=== PATIENT | female | born 1950 | race Caucasian/White ===

== ENCOUNTER 2019-10-06 09:05 | Outpatient (CLI) | payer MEDICARE, SELFPAY ==
--- NOTE | ~2019-10-06 | MM_ITS ---
EXAMINATION: MM screening arash BI w bita HISTORY: Screening TECHNIQUE: Craniocaudal and mediolateral oblique 3-D tomosynthesis images were obtained and synthetic 2-D images were generated. CAD analysis was submitted and interpreted. COMPARISON: Comparison to multiple prior studies sequentially, with oldest reviewed study dated 09/12. BREAST PARENCHYMAL COMPOSITION: There are scattered areas of fibroglandular density. FINDINGS: Stable benign-appearing bilateral breast masses. There is no evidence of suspicious mass, c alcification, or architectural distortion to suggest malignancy in either breast. There has been no s uspicious interval change. IMPRESSION: 1. No mammographic evidence of malignancy. 2. Recommend routine screening mammography in one year. BI-RADS Category 2: Benign finding(s). Reviewed, dictated and finalized at location A.
== END 2019-10-06 09:06 | disposition home or self-care (01) ==
PROVIDERS: PCP Family Medicine; Visit Provider Obstetrics & Gynecology
DX: Z12.31 Encounter for screening mammogram for malignant neoplasm of breast (principal)
CPT/HCPCS: 77063; 77067

== ENCOUNTER 2019-11-22 00:43 | Outpatient (CLI) | payer MEDICARE, SELFPAY ==
[2019-11-22 17:48] LABS: SARS-CoV-2 RNA PCR Negative
== END 2019-11-22 00:44 | disposition home or self-care (01) ==
LOC: ANHCOVIDDT 00:43
PROVIDERS: PCP Family Medicine; Visit Provider Internal Medicine Gastroenterology
DX: Z01.812 Encounter for preprocedural laboratory examination (principal); Z20.828 Contact with and (suspected) exposure to other viral communicable diseases
CPT/HCPCS: 87635; C9803; U0003

== ENCOUNTER 2019-11-25 02:08 | Day surgery (SDC) | payer MEDICARE, SELFPAY ==
[2019-11-19 13:15] VITALS: BMI 18.1
[2019-11-25 08:56] VITALS: BP 138/73; PULSE 72; RESP 18; TEMP 36.2; O2SAT 100; BMI 25.4
[2019-11-25] MEDS: LACTATED RINGERS 1,000 ML 150 ML IV CONT (09:00)
--- NOTE | 2019-11-25 09:01 | WPDANESEPPF ---
Anes - Initial Pre Proc Eval Procedure: Operation Date: 11/25/19 09:30 Proposed Procedures p Screening Colonoscopy - Fab Celis MD Date/Time: 11/25/19 09:01 Surgeon: Fab Celis MD Pre Op Diagnosis: neoplasm screening Patient Data Age: 68 Gender: F Height: 5 ft 3 in Weight: 65.2 kg Last Vital Signs Temp 97.2 F L 11/25/19 08:56 Pulse 72 11/25/19 08:56 Resp 18 11/25/19 08:56 BP 138/73 11/25/19 08:56 Pulse Ox 100 11/25/19 08:56 Allergies Allergy/AdvReac Type Severity Reaction Status Date / Time erythromycin base Allergy Unknown Unknown Verified 11/25/19 08:53 ERYTHROMYCIN (Generic Allergy Unknown Unknown Uncoded 11/25/19 08:53 Allergy) INDOMETHACIN (Generic Allergy Unknown Unknown Uncoded 11/25/19 08:53 Allergy) MACROLIDES Allergy Unknown Unknown Uncoded 11/25/19 08:53 SALICYLATES Allergy Unknown Unknown Uncoded 11/25/19 08:53 Home Medications Medication Instructions Recorded Confirmed Type cephalexin 500 mg capsule 500 mg PO Q8H PRN 04/10/19 10/27/19 History cholecalciferol (vitamin D3) 25 25 mcg PO DAILY 04/10/19 10/27/19 History mcg (1,000 unit) capsule clobetasol 0.05 % topical cream 1 applic TOPICAL QAM AND QPM 04/10/19 10/27/19 History clotrimazole-betamethasone 1 1 applic TOPICAL BID #15 gm 04/10/19 10/27/19 Rx %-0.05 % topical cream esterified 1 tablet PO DAILY 04/10/19 10/27/19 History estrogens-methyltestosterone 0.625 mg-1.25 mg tablet fluticasone propionate 0.05 % 1 applic TOPICAL BID 04/10/19 10/27/19 History topical cream folic acid 1 mg tablet 1 mg PO DAILY 04/10/19 10/27/19 History levothyroxine 75 mcg tablet 75 mcg PO DAILY 04/10/19 10/27/19 History multivitamin, stress formula 1 tablet PO DAILY 04/10/19 10/27/19 History naproxen 500 mg tablet 500 mg PO BID PRN 04/10/19 10/27/19 History nystatin 100,000 unit/gram topical 1 applic TOPICAL BID #30 gm 04/10/19 10/27/19 Rx cream prednisone 5 mg tablet 5 mg PO DAILY 04/10/19 10/27/19 History triamcinolone acetonide 55 mcg 1 spray NASAL DAILY 04/10/19 10/27/19 History nasal spray aerosol hydrocortisone acetate 25 mg 25 mg RECTAL BID #12 each 08/06/19 10/27/19 Rx rectal suppository alprazolam 0.5 mg tablet 0.5 mg PO DAILY tablet 10/27/19 10/27/19 History infliximab 100 mg intravenous 197 mg IVPB ONCE #1 each 10/27/19 10/27/19 Rx solution methotrexate sodium 2.5 mg tablet 7.5 mg PO WEEKLY tablet 10/27/19 10/27/19 History peg 3350-electrolytes 236 240 ml PO Q10M #4000 ml 11/17/19 Rx gram-22.74 gram-6.74 gram-5.86 gram solution omega 2-frk-bwk-fish oil [Fish Oil] 1 cap PO DAILY 11/19/19 11/19/19 History Patient hx anesthesia problems: none Family hx anesthesia problems: none PMFSH Social History Social History Years smoked: 20 Smoking status: Former smoker Second hand tobacco smoke exposure: No Smoking end date: 02/27/92 Alcohol intake: current Substance use: never Substance use type: does not use Living arrangements: with family Gender identity (if verbalized by the patient): Female Spiritual care concerns: No Anes - Eval Final PreProcedure Day of Procedure 11/25/19 09:01 Patient weight: normal Heart: regular rate and rhythm Lungs: clear to auscultation Airway: Mallampati scale class II Neurological: alert and oriented Last oral intake: >/= 8 hours ASA classification: II Emergent: no Anesthetic plan: proceed Anesthesia type and monitoring: general GIVS and standard monitoring Informed Consent: The patient's anesthetic plan and its attendant risks and benefits were discussed with the patient/family/POA. Questions were solicited and answers provided to the satisfaction of the patient/family/POA.
--- NOTE | 2019-11-25 09:35 | PM.HPGS ---
History of Present Illness History of Present Illness Consent: Risks, benefits, and alternatives have been discussed and questions answered. Patient agrees to proceed with procedure. Chief complaint: neoplasm screening Narrative: Marilyn Bueno is a 68 year old female here for screening colonoscopy. also history of hemorrhoids Review of Systems Constitutional: Constitutional: Denies headache(s) and Denies weakness Eyes: Eyes: Denies blurry vision ENT: Reports Normal hearing present, Denies headache(s) and Denies neck pain Cardiovascular: Cardiovascular: Denies chest pain and Denies dyspnea Respiratory: Respiratory: Denies dyspnea Gastrointestinal: Gastrointestinal: Reports no additional gastrointestinal complaints Genitourinary: Genitourinary: Denies dysuria Musculoskeletal: Musculoskeletal: Denies neck pain Integumentary/Breasts: Skin/Breast: Denies dry skin Neurologic: Reports Normal hearing present, Denies headache(s) and Denies weakness Psychiatric: Psychiatric: Denies anxiety Endocrine: Endocrine: Denies change in body appearance Hematologic/Lymphatic: Hematologic/Lymphatic: Denies easy bleeding Allergic/Immunologic: Allergic/Immunologic: Denies urticaria PMFSH Social History Social History Years smoked: 20 Smoking status: Former smoker Second hand tobacco smoke exposure: No Smoking end date: 02/27/92 Alcohol intake: current Substance use: never Substance use type: does not use Living arrangements: with family Gender identity (if verbalized by the patient): Female Spiritual care concerns: No Meds Home Medications and Allergies Home Medications Medication Instructions Recorded Confirmed Type cephalexin 500 mg capsule 500 mg PO Q8H PRN 04/10/19 10/27/19 History cholecalciferol (vitamin D3) 25 25 mcg PO DAILY 04/10/19 10/27/19 History mcg (1,000 unit) capsule clobetasol 0.05 % topical cream 1 applic TOPICAL QAM AND QPM 04/10/19 10/27/19 History clotrimazole-betamethasone 1 1 applic TOPICAL BID #15 gm 04/10/19 10/27/19 Rx %-0.05 % topical cream esterified 1 tablet PO DAILY 04/10/19 10/27/19 History estrogens-methyltestosterone 0.625 mg-1.25 mg tablet fluticasone propionate 0.05 % 1 applic TOPICAL BID 04/10/19 10/27/19 History topical cream folic acid 1 mg tablet 1 mg PO DAILY 04/10/19 10/27/19 History levothyroxine 75 mcg tablet 75 mcg PO DAILY 04/10/19 10/27/19 History multivitamin, stress formula 1 tablet PO DAILY 04/10/19 10/27/19 History naproxen 500 mg tablet 500 mg PO BID PRN 04/10/19 10/27/19 History nystatin 100,000 unit/gram topical 1 applic TOPICAL BID #30 gm 04/10/19 10/27/19 Rx cream prednisone 5 mg tablet 5 mg PO DAILY 04/10/19 10/27/19 History triamcinolone acetonide 55 mcg 1 spray NASAL DAILY 04/10/19 10/27/19 History nasal spray aerosol hydrocortisone acetate 25 mg 25 mg RECTAL BID #12 each 08/06/19 10/27/19 Rx rectal suppository alprazolam 0.5 mg tablet 0.5 mg PO DAILY tablet 10/27/19 10/27/19 History infliximab 100 mg intravenous 197 mg IVPB ONCE #1 each 10/27/19 10/27/19 Rx solution methotrexate sodium 2.5 mg tablet 7.5 mg PO WEEKLY tablet 10/27/19 10/27/19 History peg 3350-electrolytes 236 240 ml PO Q10M #4000 ml 11/17/19 Rx gram-22.74 gram-6.74 gram-5.86 gram solution omega 6-thq-ipd-fish oil [Fish Oil] 1 cap PO DAILY 11/19/19 11/19/19 History Allergies Allergy/AdvReac Type Severity Reaction Status Date / Time erythromycin base Allergy Unknown Unknown Verified 11/25/19 08:53 ERYTHROMYCIN (Generic Allergy Unknown Unknown Uncoded 11/25/19 08:53 Allergy) INDOMETHACIN (Generic Allergy Unknown Unknown Uncoded 11/25/19 08:53 Allergy) MACROLIDES Allergy Unknown Unknown Uncoded 11/25/19 08:53 SALICYLATES Allergy Unknown Unknown Uncoded 11/25/19 08:53 Vital Signs Vital Signs - 24 hr 11/25/19 08:56 Temperature 97.2 F L Pulse Rate 72 Respirat
[2019-11-25 09:58] VITALS: BP 102/56; PULSE 64; RESP 20; O2SAT 96
[2019-11-25 10:08] VITALS: BP 103/57; PULSE 66; RESP 20; O2SAT 96
[2019-11-25 10:15] VITALS: BP 122/69; PULSE 61; RESP 20; O2SAT 96
== END 2019-11-25 10:55 | disposition home or self-care (01) ==
PROVIDERS: PCP Family Medicine; Visit Provider Internal Medicine Gastroenterology
PROC: 0DJD8ZZ Inspection of Lower Intestinal Tract, Via Natural or Artificial Opening Endoscopic (ICD-10-PCS; CPT 45378; principal; 2019-11-25 09:30)
DX: Z12.11 Encounter for screening for malignant neoplasm of colon (principal); Z87.891 Personal history of nicotine dependence; K64.8 Other hemorrhoids
CPT/HCPCS: G0121; J2704; J7120

== ENCOUNTER 2019-12-29 09:48 | Outpatient (CLI) | payer MEDICARE, SELFPAY ==
--- NOTE | ~2019-12-29 | XR_ITS ---
EXAMINATION: XR chest 2V EXAM DATE: 12/29/2019 10:24 INDICATION: Upper abdominal pain. TECHNIQUE: Frontal and lateral projections of the chest obtained and reviewed. There is no prior willem dy for comparison. FINDINGS: The lungs are clear. There are no pleural effusions. The cardiomediastinal silhouette is within normal limits. There is no pneumothorax suspected. There is old right 7th rib fracture. Mode rate-sized mid thoracic bridging endplate osteophytes. IMPRESSION: No acute cardiopulmonary findings. Reviewed, dictated and finalized at location B. UCT PICKER
--- NOTE | ~2019-12-29 | CT_ITS ---
EXAMINATION: CT abdomen wo con EXAM DATE: 12/29/2019 10:22 INDICATION: Left flank pain TECHNIQUE: Spiral CT of the abdomen was performed without contrast. Axial, coronal and sagittal ramona ges were reviewed. The dose-length product (DLP) for this examination was 197.33 mGy-cm. The exposu re was tailored according to patient size (auto mA exposure control), and iterative reconstruction (A SIR) was used as additional dose reduction technique. There is no prior study for comparison. FINDINGS: There is a strip of hypodensity extending through the spleen without volume loss or masslik e appearance. This could be an acute splenic infarction, consider this as possibility for patient's l eft flank pain. This is new compared to a CT scan from 2015. There is no overlying rib fracture or kaplan bcapsular hematoma. Gallbladder is unremarkable. No biliary obstruction. There is no nephrolithiasi s or hydronephrosis. There is no retroperitoneal lymphadenopathy. Small umbilical fat-containing hernia. The stomach and small bowel are unremarkable. There is expected amount of colonic stool. No free i ntraperitoneal gas. The heart is normal in size. There are no pericardial or pleural effusions. T he lung bases are unremarkable. There are no osteoblastic or osteolytic lesions identified. IMPRESSION: 1. Small geographically shaped splenic hypodensity suspicious for acute infarction. 2. Small umbilical fat-containing hernia. Reviewed, dictated and finalized at location B. TILE FLOOR LAYER IMPRESSION: 1. Small geographically shaped splenic hypodensity suspicious for acute infarc tion. 2. Small umbilical fat-containing hernia.
== END 2019-12-29 09:49 | disposition home or self-care (01) ==
PROVIDERS: PCP Family Medicine; Visit Provider Physician Assistant
DX: R10.9 Unspecified abdominal pain (principal); K42.9 Umbilical hernia without obstruction or gangrene
CPT/HCPCS: 71046; 74150

== ENCOUNTER 2020-01-12 09:31 | Outpatient (CLI) | payer MEDICARE, SELFPAY ==
--- NOTE | ~2020-01-12 | CT_ITS ---
EXAMINATION: CT abdomen w con DATE: 01/12/2020 09:56 INDICATION: Splenic infarction TECHNIQUE: Computed tomography (CT) of the abdomen was performed with 100 cc Omnipaque 350 intravenou s contrast. Automated exposure control and iterative reconstruction technique were employed. Exam dos e: 171.58 mGy-cm total exam DLP. COMPARISON: 12/29/2019 CT abdomen FINDINGS: Heart size is within normal range. No pericardial or pleural effusion. 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 The liver , spleen, gallbladder, bile ducts, pancreas and pancreatic duct as well as adrenal glands are otherwi se unremarkable. No renal mass lesion. No urinary tract calculus or hydroureteronephrosis. Normal caliber of the abdominal aorta. No intraperitoneal or retroperitoneal mass lesion or adenopath y. No ascites. Degenerative changes of the lower thoracic and lumbar spine. The IMPRESSION: Splenic infarct Reviewed, dictated and finalized at Location A. Reviewed, dictated and finalized at location B. NURSE IMPRESSION: Splenic infarct
[2020-01-12 09:53] LABS: Estimated Glomerular Filt Rate > 60
== END 2020-01-12 09:32 | disposition home or self-care (01) ==
LOC: ANHIMG 09:32
PROVIDERS: PCP Family Medicine; Visit Provider Physician Assistant
DX: D73.5 Infarction of spleen (principal)
CPT/HCPCS: 74160; Q9967

== ENCOUNTER 2020-01-13 08:23 | Outpatient (CLI) | payer MEDICARE, SELFPAY ==
--- NOTE | 2020-01-13 09:05 | ECHO_ITS ---
Patient Info Name: Marilyn Bueno Age: 69 years : 1950 Gender: Female Ht: 63 in Wt: 145 lbs BSA: 1.72 m2 HR: 70 bpm BP: 142 / 79 mmHg Heart Rhythm: Sinus Rhythm Exam Date: 01/13/2020 9:13 AM Exam Location: [facility] Patient Status: Outpatient Admit Date: 01/13/2020 Staff Ordering Physician: Carl Darby PA-C Cage Manager: Alyx Linn RDCS Attending Provider: Carl Darby PA-C Exam Type: CA echo doppler color flow Study Info Indications - Infarction of Spleen Complete two-dimensional, color flow and Doppler transthoracic echocardiogram is performed. Summary 1. Complete two-dimensional, color flow and Doppler transthoracic echocardiogram is performed. 2. Left ventricular chamber dimension is normal. 3. Left ventricular systolic function is normal, estimated at 60-65%. 4. The left ventricular diastolic function is normal. 5. E/e' 9 is minimally elevated. 6. Global longitudinal strain is mildly abnormal at -16.4%. 7. There is trace tricuspid valve regurgitation. 8. No pulmonary hypertension, estimated pulmonary arterial systolic pressure is 34 mmHg. Left Ventricle E/e' 9 is minimally elevated. Global longitudinal strain is mildly abnormal at -16.4%. Left ventricular chamber dimension is normal. Left ventricular systolic function is normal, estimated at 60-65%. The left ventricular diastolic function is normal. Right Ventricle Right ventricular chamber dimension is normal. Right ventricular systolic function is normal. Left Atria Left atrial chamber dimension is normal. Right Atria Right atrial chamber dimension is normal. Aortic Valve The aortic valve is trileaflet. There is no aortic valve stenosis. There is no aortic valve regurgitation. Pulmonic Valve There is no pulmonic valve stenosis. Mitral Valve There is no mitral valve stenosis. There is no mitral valve regurgitation. Tricuspid Valve There is trace tricuspid valve regurgitation. No pulmonary hypertension, estimated pulmonary arterial systolic pressure is 34 mmHg. Pericardium/Pleural There is no pericardial effusion. Inferior Vena Cava Normal inferior vena cava with >50% collapse upon inspiration consistent with normal right atrial pressure, 5 mmHg. Aorta The aortic root size at the sinus of Valsalva is normal. Left Ventricular Outflow Tract Name Value Normal LVOT 2D LVOT Diameter 2.0 cm LVOT Doppler LVOT Peak Gradient 3 mmHg LVOT Mean Gradient 2 mmHg LVOT VTI 19 cm LVOT VTI/AV VTI Ratio 0.7 LVOT Stroke Volume 61 ml LVOT CO 4.3 l/min LVOT CI 2.5 l/min/m2 Mitral Valve Name Value Normal MV Doppler MV Decel Sl
== END 2020-01-13 08:24 | disposition home or self-care (01) ==
PROVIDERS: PCP Family Medicine; Visit Provider Physician Assistant
DX: D73.5 Infarction of spleen (principal); I74.8 Embolism and thrombosis of other arteries
CPT/HCPCS: 93306

== ENCOUNTER 2020-04-26 14:53 | Outpatient (RCR) | payer MEDICARE, SELFPAY ==
--- NOTE | 2020-04-26 15:58 | PTOPEVAL ---
Thank you for referring Marilyn Bueno to [facility].? The patient is scheduled to be seen for therapy? ____x/week for ___ weeks. Please review, sign, date and return this plan of care CHARLENE. I agree with and certify that the following plan of care is medically necessary. Referring Physician Date Admitting Provider: Attending Provider: Ktalyn Sarmiento Referring Provider: CECILIA Outpatient Evaluation Start: 04/26/20 14:57 Freq: Status: Active Protocol: Document 04/26/20 15:00 [facility] (Rec: 04/26/20 15:39 [facility] [id number]) Therapy Assessment Status Assessment Status Assessment Status Evaluation Outpatient Past Medical History Neurological History Hx Neurological Disorders No Significant History Cardiovascular History Hx Other Cardiac Disorders Yes: Raynaud's Disease Respiratory History Hx Respiratory Disorders No Significant History Gastrointestinal History Hx Gastroesophageal Reflux Disease Yes Genitourinary History Hx Urinary Tract Infection Yes Musculoskeletal History Hx Rheumatoid Arthritis Yes Hematological History Hx Hematological Disorders No Significant History Endocrine History Hx Hypothyroidism Yes HEENT History Hx HEENT Disorders No Significant History Integumentary History Hx Skin Disorders No Significant History Reproductive History Hx Endometriosis Yes Hx Hysterectomy Yes Psychosocial History Hx Anxiety Yes Pain History Has Past Pain Affected Your Daily Life Yes Anesthesia History Hx Anesthesia Reactions No Significant History Evaluation Information Problem Diagnosis L more than R hip pain Onset 04/20/20 Additional Evaluation Detail LEFS = 56% functionally declined Subjective Information patient reports she has pain Query Text:As Reported By Patient/ in the bilateral lateral hips Family and lower back/sacrum. she displays greater L than R pain . she reports her pain to the greater trochanter area bilaterally and the PSIS area bilterally. she reports she has had pain for years. she reports therapy does help. she reports she is seeing massage therapy 1x monthly, but reports she is going to increase this to 2x monthly. she reports she has tried several things including PRP injections to the spine sacrum
== END 2020-05-20 17:00 | disposition home or self-care (01) ==
LOC: CHSPT 14:53
DX: M25.551 Pain in right hip (principal); M25.552 Pain in left hip
CPT/HCPCS: 97110; 97140; 97161

== ENCOUNTER 2020-10-06 09:19 | Outpatient (CLI) | payer MEDICARE, SELFPAY ==
--- NOTE | ~2020-10-06 | MM_ITS ---
EXAMINATION: MM screening arash BI w bita HISTORY: Screening TECHNIQUE: Craniocaudal and mediolateral oblique 3-D tomosynthesis images were obtained and synthetic 2-D images were generated. CAD analysis was submitted and interpreted. COMPARISON: Comparison to multiple prior studies sequentially, with oldest reviewed study dated 09/12. BREAST PARENCHYMAL COMPOSITION: Breast composed of scattered areas of fibroglandular density. FINDINGS: Bilateral breast masses are unchanged from prior studies. There is no evidence of suspiciou s mass, calcification, or architectural distortion to suggest malignancy in either breast. There has been no suspicious interval change. IMPRESSION: 1. No mammographic evidence of malignancy. 2. Recommend routine screening mammography in one year. BI-RADS Category 2: Benign finding(s). Reviewed, dictated and finalized at location A.
== END 2020-10-06 09:20 | disposition home or self-care (01) ==
PROVIDERS: PCP Family Medicine; Visit Provider Obstetrics & Gynecology
DX: Z12.31 Encounter for screening mammogram for malignant neoplasm of breast (principal)
CPT/HCPCS: 77063; 77067

== ENCOUNTER 2021-05-24 16:49 | Outpatient (RCR) | payer MEDICARE, SELFPAY ==
--- NOTE | 2021-05-24 18:01 | PTOPEVAL ---
Thank you for referring Marilyn Bueno to [facility].? The patient is scheduled to be seen for therapy? ____x/week for ___ weeks. Please review, sign, date and return this plan of care CHARLENE. I agree with and certify that the following plan of care is medically necessary. Referring Physician Date Admitting Provider: Attending Provider: Katlyn Sarmiento Referring Provider: CECILIA Outpatient Evaluation Start: 05/24/21 17:15 Freq: Status: Active Protocol: Document 05/24/21 17:15 [facility] (Rec: 05/24/21 18:00 [facility] [id number]) Therapy Assessment Status Assessment Status Assessment Status Evaluation Outpatient Past Medical History Neurological History Hx Neurological Disorders No Significant History Cardiovascular History Hx Other Cardiac Disorders Yes: Raynaud's Disease Respiratory History Hx Respiratory Disorders No Significant History Gastrointestinal History Hx Gastroesophageal Reflux Disease Yes Genitourinary History Hx Urinary Tract Infection Yes Musculoskeletal History Hx Rheumatoid Arthritis Yes Hematological History Hx Hematological Disorders No Significant History Endocrine History Hx Hypothyroidism Yes HEENT History Hx HEENT Disorders No Significant History Integumentary History Hx Skin Disorders No Significant History Reproductive History Hx Endometriosis Yes Psychosocial History Hx Anxiety Yes Pain History Has Past Pain Affected Your Daily Life Yes Anesthesia History Hx Anesthesia Reactions No Significant History Evaluation Information Problem Diagnosis bilateral shoulder pain (R worse than L) Onset 04/12/21 Additional Evaluation Detail quick dash = 56% functionally declined Subjective Information patient reports she has been Query Text:As Reported By Patient/ having pain in the bilateral Family shoulders. she reports however the R shoulder is worse than her L. she reports in mid march she had a bout of inability to lift the R arm by itself. however, she is able to lift it with the other arm. she reports pain along the shoulder lateral to the joint along the deltoid. she reports she has increased pain with movement. she reports she has been using KT tape for the pain. she reports she is improving since her ini
--- NOTE | 2021-06-14 09:03 | PTOPEVAL ---
Thank you for referring Marilyn Bueno to [facility].? The patient is scheduled to be seen for therapy? ____x/week for ___ weeks. Please review, sign, date and return this plan of care CHARLENE. I agree with and certify that the following plan of care is medically necessary. Referring Physician Date Admitting Provider: Attending Provider: Katlyn Sarmiento Referring Provider: *PT Outpatient Evaluation Start: 05/24/21 17:15 Freq: Status: Active Protocol: Document 06/14/21 08:30 [facility] (Rec: 06/14/21 09:03 [facility] [id number]) Therapy Assessment Status Assessment Status Assessment Status Discharge Outpatient Past Medical History Neurological History Hx Neurological Disorders No Significant History Cardiovascular History Hx Other Cardiac Disorders Yes: Raynaud's Disease Respiratory History Hx Respiratory Disorders No Significant History Gastrointestinal History Hx Gastroesophageal Reflux Disease Yes Genitourinary History Hx Urinary Tract Infection Yes Musculoskeletal History Hx Rheumatoid Arthritis Yes Hematological History Hx Hematological Disorders No Significant History Endocrine History Hx Hypothyroidism Yes HEENT History Hx HEENT Disorders No Significant History Integumentary History Hx Skin Disorders No Significant History Reproductive History Hx Endometriosis Yes Psychosocial History Hx Anxiety Yes Pain History Has Past Pain Affected Your Daily Life Yes Anesthesia History Hx Anesthesia Reactions No Significant History Evaluation Information Problem Diagnosis bilateral shoulder pain (R worse than L) Onset 04/12/21 Additional Evaluation Detail quick dash = 43% functionally declined Subjective Information patient reports she is not 100 Query Text:As Reported By Patient/ % improved. however, she Family reports she is much better overall since beginning therapy. she reports she no longer has arm throbbing at night. she reports she is looking for an arm bike for home use as she has found this helps to warm up and loosen the shoulder up. Pain Assessment Timing of Pain Assessment Timing of Pain Assessment Assessment Self Report Self Report Pain Level 0 Pain Score Pain Score 0: Self Report Upper Extremity Range of Motion General Upper Extremity Range of Motion Gross Upper Extremity Range of Motion 152 degrees arom bilateral Comments shoulder flexion
== END 2021-06-14 15:46 | disposition home or self-care (01) ==
LOC: CHSPT 16:49
DX: M25.511 Pain in right shoulder (principal)
CPT/HCPCS: 97014; 97110; 97161; G0283

== ENCOUNTER 2021-09-29 14:41 | Outpatient (RCR) | payer MEDICARE, SELFPAY ==
--- NOTE | 2021-09-29 13:48 | PTOPEVAL ---
Thank you for referring Marilyn Bueno to [facility].? The patient is scheduled to be seen for therapy? __2__x/week for 10 visits. Please review, sign, date and return this plan of care CHARLENE. I agree with and certify that the following plan of care is medically necessary. Referring Physician Date Admitting Provider: Attending Provider: OMID FRY Referring Provider: *PT Outpatient Evaluation Start: 09/29/21 13:13 Freq: Status: Active Protocol: Document 09/29/21 13:02 MARISA (Rec: 09/29/21 13:48 MARISA [email or web address]) Therapy Assessment Status Assessment Status Assessment Status Evaluation Outpatient Past Medical History Neurological History Hx Neurological Disorders No Significant History Cardiovascular History Hx Other Cardiac Disorders Yes: Raynaud's Disease Respiratory History Hx Respiratory Disorders No Significant History Gastrointestinal History Hx Gastroesophageal Reflux Disease Yes Genitourinary History Hx Urinary Tract Infection Yes Musculoskeletal History Hx Rheumatoid Arthritis Yes Hematological History Hx Hematological Disorders No Significant History Endocrine History Hx Hypothyroidism Yes HEENT History Hx HEENT Disorders No Significant History Integumentary History Hx Skin Disorders No Significant History Reproductive History Hx Endometriosis Yes Psychosocial History Hx Anxiety Yes Pain History Has Past Pain Affected Your Daily Life Yes Anesthesia History Hx Anesthesia Reactions No Significant History Evaluation Information Problem Diagnosis bilateral low back pain Onset 05/27/21 Subjective Information Pt. reports that she has had Query Text:As Reported By Patient/ on off back pain for years. Family She reports that pain in the back and legs as worsened over the past several months. She reports that pain goes across the back and down into both of her thighs. She report that pain is worsened with long periods of standing or walking. She states that completing normal household work such as vaccuuming will increase her pain. 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 She states that she can only stand for about 1 hour before
--- NOTE | 2021-11-04 09:46 | PTOPDC ---
Evaluation Information Assessment Status Discharge Diagnosis bilateral low back pain Onset 05/27/21 Subjective Information patient reports she feels good this date. she reports she has not had any flare ups of pain since her last therapy visit. she reports she does still see the chiropractor. she reports she has been compliant with her exercises everyday. she reports she is nervous about ending therapy and her pain coming back. Reported Pain Level Pain Score 3,0: Self Report Assessment PT Clinical Summary mrs. angel presents to skilled PT services for her 10th skilled Pt visit. as of this date, she has made progress towards goals, but has only met 2-3 of her goals for skilled PT. she continues to get benefits from dry needling when in increased pain, and from her exercises. however, she has had no falre ups with exercises only for the past week. she would do well to DC skilled PT this date and continues to follow up with PT via phone for any changes or flare ups in pain. she will continue HEP independent at home. Plan of Care Treatment Frequency and DC to independent HEP Duration
== END 2021-11-04 11:39 | disposition home or self-care (01) ==
LOC: CHSPT 14:41
DX: M54.42 Lumbago with sciatica, left side (principal); M54.41 Lumbago with sciatica, right side; G89.29 Other chronic pain
CPT/HCPCS: 97014; 97110; 97140; 97161; 97530; G0283

== ENCOUNTER 2021-10-10 08:44 | Outpatient (CLI) | payer MEDICARE, SELFPAY ==
--- NOTE | ~2021-10-10 | MM_ITS ---
EXAMINATION: MM screening [facility] BI w bita HISTORY: Screening mammogram TECHNIQUE: Craniocaudal and mediolateral oblique 3-D tomosynthesis images were obtained and synthetic 2-D images were generated. CAD analysis was submitted and interpreted. COMPARISON: 10/06/2020, 10/06/2019, 09/23/2018 bilateral screening mammogram examinations is BREAST PARENCHYMAL COMPOSITION: There are scattered areas of fibroglandular density. FINDINGS: There are stable bilateral circumscribed low-density masses. There is no evidence of suspic ious mass, calcification, or architectural distortion to suggest malignancy in either breast. There h as been no suspicious interval change. IMPRESSION: 1. No mammographic evidence of malignancy. 2. Recommend routine screening mammography in one year. BI-RADS Category 2: Benign finding(s). Reviewed, dictated and finalized at location A.
== END 2021-10-10 08:45 | disposition home or self-care (01) ==
LOC: ANHIMG 08:46
PROVIDERS: PCP Family Medicine; Visit Provider Obstetrics & Gynecology
DX: Z12.31 Encounter for screening mammogram for malignant neoplasm of breast (principal)
CPT/HCPCS: 77063; 77067

== ENCOUNTER 2022-01-02 07:42 | Outpatient (CLI) | payer MEDICARE, SELFPAY ==
--- NOTE | ~2022-01-02 | CT_ITS ---
EXAMINATION: CT abdomen pelvis wo/w con DATE: 01/02/2022 08:27 INDICATION: Computed urinary tract infection TECHNIQUE: Computed tomography (CT) of the abdomen and pelvis was performed without intravenous contr ast. CT of the abdomen and pelvis was then performed with a total of 130 mL Omnipaque-350 intravenous contrast using a double-bolus technique for simultaneous opacification of the renal parenchyma and r enal collecting system. Automated exposure control and iterative reconstruction technique were employ ed. The dose-length product was 994.50 mGy-cm. COMPARISON: None FINDINGS: Lung bases are clear. Heart size is normal. No pericardial or pleural effusion. Liver, gallbladder, p ancreas, bilateral adrenal glands are normal. Interval atrophy and scarring of a prior splenic infarc t. 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 Kidneys are otherwise normal with symmetric parenchymal enhancement, no urolithiasis or hydronephrosis. The blad shad ureters are opacified in their near entirety with no evident filling defects or urothelial irregu larities. Bladder is normal. The uterus is not identified and has likely been surgically resected. No free intraperitoneal gas or fluid. No pathologically enlarged abdominal or pelvic lymphadenopathy. M oderate lumbar spondylosis. 3-4 mm anterolisthesis L3 on L4. IMPRESSION: 1. No urolithiasis or acute intra-abdominal/pelvic process. Reviewed, dictated and finalized at location A. RT OPERATOR
[2022-01-02 08:08] LABS: Estimated Glomerular Filt Rate > 60
== END 2022-01-02 07:43 | disposition home or self-care (01) ==
PROVIDERS: PCP Family Medicine; Visit Provider Nurse Practitioner
DX: N39.0 Urinary tract infection, site not specified (principal)
CPT/HCPCS: 74178; Q9967

== ENCOUNTER 2022-06-08 14:00 | Outpatient (CLI) | payer MEDICARE, SELFPAY ==
--- NOTE | ~2022-06-08 | XR_ITS ---
EXAMINATION: XR chest 2V 06/08/2022 14:24 INDICATION: Cough PROCEDURE: 2 view chest COMPARISON: Comparison to multiple prior studies sequentially, with oldest reviewed study dated 11/27. FINDINGS: The lungs are clear. The cardiomediastinal silhouette is within normal limits. There are no pleural effusions. There is no pneumothorax suspected. Healed right seventh rib fracture. IMPRESSION: 1: NO ACUTE CARDIOPULMONARY DISEASE. Reviewed, dictated and finalized at location L.
== END 2022-06-08 14:01 | disposition home or self-care (01) ==
PROVIDERS: PCP Family Medicine; Visit Provider Family Medicine
DX: R05.9 Cough, unspecified (principal)
CPT/HCPCS: 71046

== ENCOUNTER 2022-10-12 09:34 | Outpatient (CLI) | payer MEDICARE, SELFPAY ==
--- NOTE | ~2022-10-12 | MM_ITS ---
EXAMINATION: MM screening [facility] BI w bita HISTORY: Screening TECHNIQUE: Craniocaudal and mediolateral oblique 3-D tomosynthesis images were obtained and synthetic 2-D images were generated. CAD analysis was submitted and interpreted. COMPARISON: Comparison to multiple prior studies sequentially, with oldest reviewed study dated 09/23. BREAST PARENCHYMAL COMPOSITION: There are scattered areas of fibroglandular density. FINDINGS: Stable benign-appearing bilateral breast masses allowing for differences of technique. Ther e is no evidence of suspicious mass, calcification, or architectural distortion to suggest malignancy in either breast. There has been no suspicious interval change. IMPRESSION: 1. No mammographic evidence of malignancy. 2. Recommend routine screening mammography in one year. BI-RADS Category 2: Benign finding(s). Reviewed, dictated and finalized at location A.
== END 2022-10-12 09:35 | disposition home or self-care (01) ==
PROVIDERS: PCP Family Medicine; Visit Provider Obstetrics & Gynecology
DX: Z12.31 Encounter for screening mammogram for malignant neoplasm of breast (principal)
CPT/HCPCS: 77063; 77067

== ENCOUNTER 2023-03-16 09:02 | Outpatient (RCR) | payer MEDICARE, SELFPAY ==
--- NOTE | 2023-03-16 15:04 | OPREHPOC ---
Outpatient Therapy Plan of Care This is a Multidisciplinary Plan of Care that may contain components documented by all disciplines (PT, OT, and ST.) PT Problem 1 PT Problem #1 Knowledge Deficit PT Goal 1 Goal 1. independent and compliant with HEP Target Visit 4 PT Problem 2 PT Problem #2 Impaired Functional Mobil PT Goal 1 Goal 1. less than 2/10 pain in the L foot 2. LEFS to display less than 40% functional deficits 3. 10 degrees bilateral active ankle DF 4. patient to ambulate 15 minutes in clinic without increased pain in the feet. Target Visit 8
--- NOTE | 2023-03-16 15:04 | PTOPEVAL1 ---
Assessment and note entered by JT File, PT Evaluation Information Assessment Status Evaluation Diagnosis L plantar fasciitis Onset 01/26/23 Subjective Information patient reports she has had plantar foot pain fro about 6 weeks. she reports she began having pain after exercising and attending other care for her back. she reports her back and legs are much better, but the pain began slowly in the L foot. she did have an injection of the L foot. she reports she has increased pain with standing and walking, as well as, getting out of bed in the mornings. she reports decreased pain with rest. Reported Pain Level Pain Score 5: Self Report Assessment PT Clinical Summary mrs. angel is a 72 yo woman who presents to skilled PT services for evaluation and treatment of L plantar fascia pain. she presents with signs and symptoms of L plantar fasciitis today. she would benefit from continued skilled PT to address her pain, tenderness, rom deficits, and ambulation/functional deficits to improve her quality of life and return to prior level functional activities. Plan of Care Interventions Gait Training,Manual Therapy,Neuro Re-education, Patient/Caregiver Educati,Therapeutic Activities, Therapeutic Exercise,Other Other Interventions dry needling PT Services Indicated Yes Treatment Frequency and 2x weekly for 8 visits Duration These treatments will address the objective and functional deficits as defined above. The patient will be advanced safely and appropriately in order for the patient to progress towards his/her prior level of function. Additional exercises will be introduced and as well as a comprehensive home exercise program upon discharge, if needed, ?to ensure carryover of functional gains achieved in the clinic. This treatment plan has been reviewed and agreement upon by the patient.
--- NOTE | 2023-04-09 14:02 | OPREHPOC ---
Outpatient Therapy Plan of Care This is a Multidisciplinary Plan of Care that may contain components documented by all disciplines (PT, OT, and ST.) PT Problem 1 PT Problem #1 Knowledge Deficit PT Goal 1 Goal 1. independent and compliant with HEP Target Visit 4 Progress Met PT Problem 2 PT Problem #2 Impaired Functional Mobil PT Goal 1 Goal 1. less than 2/10 pain in the L foot. not met 2. LEFS to display less than 40% functional deficits. not met 3. 10 degrees bilateral active ankle DF. met 4. patient to ambulate 15 minutes in clinic without increased pain in the feet. not met Target Visit 12
--- NOTE | 2023-04-09 14:02 | PTOPREEVAL ---
Assessment and note entered by JT File, PT Evaluation Information Assessment Status Re-evaluation Diagnosis L plantar fasciitis Onset 01/26/23 Subjective Information patient reports she feels good today. she reports she feels real close to normal, but still has some pain in the L foot. she reports today is the lowest her pain has felt since starting therapy. Reported Pain Level Pain Score 1: Self Report Assessment PT Clinical Summary mrs. angel presents to skilled PT services for her 8th skilled therapy visit for L plantar fasciitis. she reports decreased pain and symptoms in the L foot today. however, her symptoms are still increased with time on her feet and walking. she achieves goal for HEP performance and rom of the bilateral ankles. however, she still lacks functional LEFS, pain, and walking goals. continued skilled PT is advised to continue to work on patient's achievement of all goals for skilled PT to improve her quality of life. he treatment thus far has consisted of exercises for increased ankle flexibility, strength, and plantar fasciitis flexibility. we have also utilized modalities and manual therapy for pain and tissue extensibility. began reduction of modalities last visit and will continue to wean off modalities to manual care and exercises only. Plan of Care Interventions Gait Training,Manual Therapy,Neuro Re-education, Patient/Caregiver Educati,Therapeutic Activities, Therapeutic Exercise,Other Other Interventions dry needling PT Services Indicated Yes Treatment Frequency and continue skilled PT 2x weekly for 4 more visits Duration These treatments will address the objective and functional deficits as defined above. The patient will be advanced safely and appropriately in order for the patient to progress towards his/her prior level of function. Additional exercises will be introduced and as well as a comprehensive home exercise program upon discharge, if needed, ?to ensure carryover of functional gains achieved in the clinic. This treatment plan has been reviewed and agreement upon by the patient.
--- NOTE | 2023-04-26 16:37 | OPREHPOC ---
Outpatient Therapy Plan of Care This is a Multidisciplinary Plan of Care that may contain components documented by all disciplines (PT, OT, and ST.) PT Problem 1 PT Problem #1 Knowledge Deficit PT Goal 1 Goal 1. independent and compliant with HEP Target Visit 4 Progress Met PT Problem 2 PT Problem #2 Impaired Functional Mobil PT Goal 1 Goal 1. less than 2/10 pain in the L foot. not met 2. LEFS to display less than 40% functional deficits. met 3. 10 degrees bilateral active ankle DF. met 4. patient to ambulate 15 minutes in clinic without increased pain in the feet. met outside the clinic Target Visit 12 Progress Met
--- NOTE | 2023-04-26 16:38 | PTOPDC ---
Assessment and note entered by JT File, PT Evaluation Information Assessment Status Discharge Diagnosis L plantar fasciitis Onset 01/26/23 Subjective Information patient reports she feels Great today. she reports she has no pain in the L foot. she reports she has been able to wear tennis shoes with orthotics without issues. she reports she was able to walk around all day at MD visits at [place] without pain. Reported Pain Level Pain Score 0: Self Report Assessment PT Clinical Summary mrs. angel presents to skilled PT services today for her 12th skilled PT visit. as of this date, she has no pain, and has met all goals for skilled PT of the L foot. she will be DC'd from skilled PT of the L foot today, and continue with exercises on her own at home for the L foot. Plan of Care PT Services Indicated Yes
== END 2023-04-26 16:54 | disposition home or self-care (01) ==
LOC: CHSPT 09:02
PROVIDERS: Visit Provider Podiatrist Foot & Ankle Surgery
DX: M72.2 Plantar fascial fibromatosis (principal)
CPT/HCPCS: 97035; 97110; 97140; 97161

== ENCOUNTER 2023-05-01 13:43 | Outpatient (RCR) | payer MEDICARE, SELFPAY ==
--- NOTE | 2023-05-15 12:52 | OPREHPOC ---
Outpatient Therapy Plan of Care This is a Multidisciplinary Plan of Care that may contain components documented by all disciplines (PT, OT, and ST.) PT Problem 1 PT Problem #1 Knowledge Deficit PT Goal 1 Goal 1. independent and compliant with HEP Target Visit 4 PT Problem 2 PT Problem #2 Pain PT Goal 1 Goal 1. decrease pain at worst to 2/10 in the lower back and bilateral LE's. 2. patient to report centralization of all symptoms to not passed the buttocks. Target Visit 8 PT Problem 3 PT Problem #3 Impaired Strength PT Goal 1 Goal 1. improve bilateral hip abduction strength to 4+/ 5 or better 2. improve core strength to 4/5 or better Target Visit 8 PT Problem 4 PT Problem #4 Impaired Functional Mobil PT Goal 1 Goal 1. oswestry to display 20% or less functional deficits 2. patient to walk for 1 mile for exercise without stopping due to pain. 3. patient to develop a good HEP and gym exercise routine to slow the progression of DDD. Target Visit 8
--- NOTE | 2023-05-15 12:52 | PTOPEVAL1 ---
Assessment and note entered by JT File, PT Evaluation Information Assessment Status Evaluation Diagnosis bilateral greater trochanteric bursitis, lower back pain, myofascial pain Onset 04/26/23 Subjective Information patient has pain in the lower back that goes along the buttocks and down both legs. she reports the L LE hurts all the time, but the R LE only hurts if she touches it. she reports at times the pain in the muscles are increased and she has difficulty walking. she reports she has tried therapy, exercise, dry needling, acupuncture, and meds in the past. she reports she has also tried massage therapy that has helped. she reports it has been more flared up the past few months, and wants to return to PT as it helped in the past with her symptoms. Reported Pain Level Pain Score 2: Self Report Assessment PT Clinical Summary mrs. angel is a pleasant 72 yo woman who presents to skilled PT services for evaluation and treatment of acute on chronic lower back and bilateral hip pain. she presents today with signs and symptoms consistent with L greater than R lumbar radiculopathy from DDD. she presents with decreased hip and core strength, mm tightness, and pain/radiation of symptoms down the legs. continued skilled PT is indicated to improve her objective/functional deficits and return to her prior level functional activity performance/ quality of life. she has exhausted many different types of treatments in the past, but reports PT and dry needling have worked the best. Plan of Care Interventions Manual Therapy,Neuro Re-education,Patient/ Caregiver Educati,Therapeutic Activities, Therapeutic Exercise,Other Other Interventions dry needling PT Services Indicated Yes Treatment Frequency and 2x weekly for 8 visits Duration These treatments will address the objective and functional deficits as defined above. The patient will be advanced safely and appropriately in order for the patient to progress towards his/her prior level of function. Additional exercises will be introduced and as well as a comprehensive home exercise program upon discharge, if needed, ?to ensure carryover of functional gains achieved in the clinic. This treatment plan has been reviewed and agreement upon by the patient.
--- NOTE | 2023-06-13 12:31 | OPREHPOC ---
Outpatient Therapy Plan of Care This is a Multidisciplinary Plan of Care that may contain components documented by all disciplines (PT, OT, and ST.) PT Problem 1 PT Problem #1 Knowledge Deficit PT Goal 1 Goal 1. independent and compliant with HEP Target Visit 4 Progress Met PT Problem 2 PT Problem #2 Pain PT Goal 1 Goal 1. decrease pain at worst to 2/10 in the lower back and bilateral LE's. 2. patient to report centralization of all symptoms to not passed the buttocks. Target Visit 8 Progress Met PT Problem 3 PT Problem #3 Impaired Strength PT Goal 1 Goal 1. improve bilateral hip abduction strength to 4+/ 5 or better 2. improve core strength to 4/5 or better Target Visit 8 Progress Met PT Problem 4 PT Problem #4 Impaired Functional Mobil PT Goal 1 Goal 1. oswestry to display 20% or less functional deficits 2. patient to walk for 1 mile for exercise without stopping due to pain. 3. patient to develop a good HEP and gym exercise routine to slow the progression of DDD. Target Visit 8 Progress Met
--- NOTE | 2023-06-13 12:31 | PTOPDC ---
Assessment and note entered by JT File, PT Evaluation Information Assessment Status Discharge Diagnosis bilateral greater trochanteric bursitis, lower back pain, myofascial pain Onset 04/26/23 Subjective Information patient reports she is doing very well. she reports she is having little to no pain in the lower back. she reports she is back to performing all prior level activities. she reports she is ready to take a break from therapy at this time. Reported Pain Level Pain Score 2: Self Report Assessment PT Clinical Summary mrs angel presents to skilled PT for her 8th skilled therapy visit for lower back pain and bilateral greater trochanteric bursitis. as of this date, she displays decreased pain, improve core and LE strength, and no radicular symptoms. she has met all goals for skilled PT. she will DC skilled PT today and continue with HEP independent at home. Plan of Care PT Services Indicated Yes
== END 2023-06-13 13:16 | disposition home or self-care (01) ==
LOC: CHSPT 13:43
DX: M70.61 Trochanteric bursitis, right hip (principal); M70.62 Trochanteric bursitis, left hip; M79.18 Myalgia, other site; M54.50 Low back pain, unspecified; G89.29 Other chronic pain
CPT/HCPCS: 97110; 97140; 97161

== ENCOUNTER 2023-09-19 08:59 | Outpatient (RCR) | payer MEDICARE, SELFPAY ==
--- NOTE | 2023-09-19 10:09 | OPREHPOC ---
Outpatient Therapy Plan of Care This is a Multidisciplinary Plan of Care that may contain components documented by all disciplines (PT, OT, and ST.) PT Problem 1 PT Problem #1 Knowledge Deficit PT Goal 1 Goal 1. independent and compliant with HEP Target Visit 4 PT Problem 2 PT Problem #2 Pain PT Goal 1 Goal 1. decrease pain at worst to 2/10 in the lower back. Target Visit 8 PT Problem 3 PT Problem #3 Impaired Range of Motion PT Goal 1 Goal 1. 100% active lumbar rom without pain Target Visit 8 PT Problem 4 PT Problem #4 Impaired Strength PT Goal 1 Goal 1. 4+/5 bilateral hip strength 2. 5/5 bilateral knee strength Target Visit 8 PT Problem 5 PT Problem #5 Impaired Functional Mobil PT Goal 1 Goal 1. patient to tolerate standing for 2 hours or more without increased pain 2. oswestry to display 20% or less functional defictis Target Visit 8
--- NOTE | 2023-09-19 10:09 | PTOPEVAL1 ---
Assessment and note entered by JT File, PT Evaluation Information Assessment Status Evaluation Diagnosis lumbar facet arthropathy Onset 09/13/23 Subjective Information patient reports she had a flare up of pain in the back and down into the posterior hips. she reports she saw her MD who did some needling and helped reduce the flare up. however, she reports she feels she needs to return to therapy to work on her core strength, dry needling, and assistance of modalities for pain reduction. she reports she has benefitted from skilled PT in the past to help avoid her needing back surgery. Reported Pain Level Pain Score 3: Self Report Assessment PT Clinical Summary mrs. angel is a 72 yo woman who presents to skilled PT services for evaluation and treatment of lower back pain. she presents this date with acute on chronic flare up of lower back pain. she displays weakness in the bilateral hips, decreased lumbar rom, pain, and decreased functional activity tolerance. she would benefit from continued skilled PT to improve her objective/ functional deficits and progress towards a return to her prior level functional activity performance /quality of life. Plan of Care Interventions Electrical Stimulation,Gait Training,Hot Pack/Cold Pack,Manual Therapy,Mechanical Traction,Neuro Re- education,Patient/Caregiver Educati,Therapeutic Activities,Therapeutic Exercise PT Services Indicated Yes Treatment Frequency and 2x weekly for 8 visits Duration These treatments will address the objective and functional deficits as defined above. The patient will be advanced safely and appropriately in order for the patient to progress towards his/her prior level of function. Additional exercises will be introduced and as well as a comprehensive home exercise program upon discharge, if needed, ?to ensure carryover of functional gains achieved in the clinic. This treatment plan has been reviewed and agreement upon by the patient.
--- NOTE | 2023-10-09 16:54 | PCPTNOTE ---
Patient called & cancelled scheduled appointment this date due to [had the wrong time written down]
--- NOTE | 2023-10-26 09:55 | OPREHPOC ---
Outpatient Therapy Plan of Care This is a Multidisciplinary Plan of Care that may contain components documented by all disciplines (PT, OT, and ST.) PT Problem 1 PT Problem #1 Knowledge Deficit PT Goal 1 Goal / Goal Update 1. independent and compliant with HEP Target Visit 4 Progress Met PT Problem 2 PT Problem #2 Pain PT Goal 1 Goal / Goal Update 1. decrease pain at worst to 2/10 in the lower back. Target Visit 8 Progress Met PT Problem 3 PT Problem #3 Impaired Range of Motion PT Goal 1 Goal / Goal Update 1. 100% active lumbar rom without pain Target Visit 8 Progress Met PT Problem 4 PT Problem #4 Impaired Strength PT Goal 1 Goal / Goal Update 1. 4+/5 bilateral hip strength 2. 5/5 bilateral knee strength Target Visit 8 Progress Met PT Problem 5 PT Problem #5 Impaired Functional Mobil PT Goal 1 Goal / Goal Update 1. patient to tolerate standing for 2 hours or more without increased pain 2. oswestry to display 20% or less functional defictis Target Visit 8 Progress Met
--- NOTE | 2023-10-26 09:55 | PTOPDC ---
Assessment and note entered by JT File, PT Evaluation Information Assessment Status Discharge Diagnosis lumbar facet arthropathy Onset 09/13/23 Subjective Information patient reports she feels good today. she reports she knows her pain wont ever be a 0/10, but she is happy with how it is managed now. she reports the exercises, needling, and modalities have really helped. Reported Pain Level Pain Score 1: Self Report Assessment PT Clinical Summary mrs. angel presents to skilled PT for her 8th skilled PT visit today. she presents with pain that is low and well managed at this time. she also presents with improved bilateral LE strength, active lumbar rom, and improved functional activity performance. she has met all goals for skilled PT at this time. she will DC skilled PT today, and continue with HEP independent at home. Plan of Care PT Services Indicated Yes
== END 2023-10-26 10:13 | disposition home or self-care (01) ==
LOC: CHSPT 08:59
DX: M47.816 Spondylosis without myelopathy or radiculopathy, lumbar region (principal)
CPT/HCPCS: 97012; 97014; 97110; 97140; 97161; G0283

== ENCOUNTER 2023-10-15 14:18 | Outpatient (CLI) | payer MEDICARE, SELFPAY ==
--- NOTE | ~2023-10-15 | MM_ITS ---
EXAMINATION: MM screening [facility] BI w bita HISTORY: Screening TECHNIQUE: Craniocaudal and mediolateral oblique 3-D tomosynthesis images were obtained and synthetic 2-D images were generated. CAD analysis was submitted and interpreted. COMPARISON: Comparison to multiple prior studies sequentially, with oldest reviewed study dated 09/20. BREAST PARENCHYMAL COMPOSITION: Not dense: There are scattered areas of fibroglandular density. FINDINGS: There are stable benign-appearing low-density bilateral breast masses. There is no evidence of suspicious mass, calcification, or architectural distortion to suggest malignancy in either breas t. There has been no suspicious interval change. IMPRESSION: 1. No mammographic evidence of malignancy. 2. Recommend routine screening mammography in one year. BI-RADS Category 2: Benign finding(s). Reviewed, dictated and finalized at location B.
== END 2023-10-15 14:19 | disposition home or self-care (01) ==
LOC: ANHIMG 14:19
PROVIDERS: Visit Provider Obstetrics & Gynecology
DX: Z12.31 Encounter for screening mammogram for malignant neoplasm of breast (principal)
CPT/HCPCS: 77063; 77067

== ENCOUNTER 2024-02-06 10:53 | Outpatient (RCR) | payer MEDICARE, SELFPAY ==
--- NOTE | 2024-02-06 13:12 | OPREHPOC ---
Outpatient Therapy Plan of Care This is a Multidisciplinary Plan of Care that may contain components documented by all disciplines (PT, OT, and ST.) PT Problem 1 PT Problem #1 Knowledge Deficit PT Goal 1 Goal / Goal Update 1. independent and compliant with HEP Target Visit 6 PT Problem 2 PT Problem #2 Pain PT Goal 1 Goal / Goal Update 1. reduce pain at worst to 3/10 or less in the lower back and hips/LE's Target Visit 12 PT Problem 3 PT Problem #3 Impaired Range of Motion PT Goal 1 Goal / Goal Update 1. active lumbar flexion to the ankles without pain 2. 30 degrees active lumbar extension without pain 3. 40 degrees active lumbar side bending without pain 4. 40 degrees active lumbar rotation without pain Target Visit 12 PT Problem 4 PT Problem #4 Impaired Strength PT Goal 1 Goal / Goal Update 1. 5/5 bilateral ankle DF 2. 5/5 bilateral knee strength 3. 4+/5 bilateral hip strength Target Visit 12 PT Problem 5 PT Problem #5 Impaired Functional Mobility PT Goal 1 Goal / Goal Update 1. safe squat and lifting mechanics of 15lbs to waist level without increased pain 2. patient to lend and lift small weight from floor to waist without increased pain 3. no pain getting up from sitting in chair 4. LEFS to display 30% or less functional deficits 5. oswestry to display 20% or less functional deficits Target Visit 12
--- NOTE | 2024-02-06 13:12 | PTOPEVAL1 ---
Assessment and note entered by JT File, PT Evaluation Information Assessment Status Evaluation ICD-10 Condition Codes (PT) Pain in low back M54.50,Pain in right hip M25.551, Pain in left hip M25.552 Other ICD-10 Condition Codes ( M06.9; M74.816; M79.18; M70.61; M70.62; G89.29 PT) Onset 01/03/24 Subjective Information patient reports she began having the return of lower back and sciatic pain about 3 weeks ago. she has been a patient in the past in PT here who has gotten good results of pain and symptoms reduction with modalities, dry needling, manual therapy, and exercises. she also supplements treatments with nurse healthcare manager to manage her pain and symptoms. patient reports she did have a shockwave treatment about 1 week ago, and it helped some, but not quite like it has in the past . she reports she has pain and symptoms in the lower back and both hips. she reports it is less intense in the thighs/legs, and more intense in the lower back. she reports it has been more difficult and painful with rolling over in bed, standing, lifting, and bending. Reported Pain Level Pain Score 5: Self Report Assessment PT Clinical Summary mrs. angel returns to skilled PT with an acute flare up of lower back and bilateral LE pain. she has been able to manage her symptoms on her own for 3+ months since her lat bout of therapy. however, she now experiences lower back pain more than hip/LE pain, LE and core weakness, deficits in lumbar rom, and decreased functional activity performance due to pain. she would benefit from return to and continued skilled PT to improve her objective/functional deficits to progress towards a return to her prior level functional activity performance/quality of life. she has shown in the past the benefits and usefulness of skilled PT to improve her functional level, and allow her to return to prior pain free activities for 2-3 months at a time. Plan of Care Interventions Electrical Stimulation,Hot Pack/Cold Pack,Manual Therapy,Mechanical Traction,Neuro Re-education, Patient/Caregiver Education,Therapeutic Activities ,Therapeutic Exercise,Other Other Interventions dry needling PT Services Indicated Yes Treatment Frequency and 3x weekly for 12 visits Duration These treatments will address the objective and functional deficits as defined above. The patient will be advanced safely and appropriately in order for the patient to progress towards his/her prior level of function. Additional exercises will be introduced and as well as a comprehensive home exercise program upon discharge, if needed, ?to ensure carryover of functional gains achieved in the clinic. This treatment plan has been reviewed and agreement upon by the patient.
--- NOTE | 2024-03-04 14:55 | OPREHPOC ---
Outpatient Therapy Plan of Care This is a Multidisciplinary Plan of Care that may contain components documented by all disciplines (PT, OT, and ST.) PT Problem 1 PT Problem #1 Knowledge Deficit PT Goal 1 Goal / Goal Update 1. independent and compliant with HEP Target Visit 6 Progress Met PT Problem 2 PT Problem #2 Pain PT Goal 1 Goal / Goal Update 1. reduce pain at worst to 3/10 or less in the lower back and hips/LE's Target Visit 12 Progress Partially Met PT Problem 3 PT Problem #3 Impaired Range of Motion PT Goal 1 Goal / Goal Update 1. active lumbar flexion to the ankles without pain 2. 30 degrees active lumbar extension without pain 3. 40 degrees active lumbar side bending without pain 4. 40 degrees active lumbar rotation without pain Target Visit 12 PT Problem 4 PT Problem #4 Impaired Strength PT Goal 1 Goal / Goal Update 1. 5/5 bilateral ankle DF 2. 5/5 bilateral knee strength 3. 4+/5 bilateral hip strength. met Target Visit 12 Progress Partially Met PT Problem 5 PT Problem #5 Impaired Functional Mobility PT Goal 1 Goal / Goal Update 1. safe squat and lifting mechanics of 15lbs to waist level without increased pain 2. patient to lend and lift small weight from floor to waist without increased pain 3. no pain getting up from sitting in chair 4. LEFS to display 30% or less functional deficits 5. oswestry to display 20% or less functional deficits Target Visit 12
--- NOTE | 2024-03-04 14:55 | PTOPPROGNS ---
Assessment and note entered by JT File, PT Evaluation Information Assessment Status Progress ICD-10 Condition Codes (PT) Pain in low back M54.50,Pain in right hip M25.551, Pain in left hip M25.552 Other ICD-10 Condition Codes ( M06.9; M74.816; M79.18; M70.61; M70.62; G89.29 PT) Onset 01/03/24 Subjective Information patient reports she feels improved today. she reports she definitely is not pain free, but knows she will likely never be pain free. she reports she has been doing her exercises routinely at home , and was even able to up her repetitions to 30 consistently with HEP. Assessment PT Clinical Summary mrs. angel presents to skilled PT for her 10th skilled PT visit of the lower back. she is tolerating treatment well and has noted significant reduction of symptoms, pain, and improved functional activity performance. we have already been able to reduce the amount of modalities needed, and progress exercises for her core strength. patient will benefit from continued skilled PT to address her remaining objective/ functional deficits to achieve her remaining goals . Plan of Care Interventions Electrical Stimulation,Hot Pack/Cold Pack,Manual Therapy,Mechanical Traction,Neuro Re-education, Patient/Caregiver Education,Therapeutic Activities ,Therapeutic Exercise,Other Other Interventions dry needling PT Services Indicated Yes Treatment Frequency and continue per initial POC Duration These treatments will address the objective and functional deficits as defined above. The patient will be advanced safely and appropriately in order for the patient to progress towards his/her prior level of function. Additional exercises will be introduced and as well as a comprehensive home exercise program upon discharge, if needed, ?to ensure carryover of functional gains achieved in the clinic. This treatment plan has been reviewed and agreement upon by the patient.
--- NOTE | 2024-03-12 16:12 | OPREHPOC ---
Outpatient Therapy Plan of Care This is a Multidisciplinary Plan of Care that may contain components documented by all disciplines (PT, OT, and ST.) PT Problem 1 PT Problem #1 Knowledge Deficit PT Goal 1 Goal / Goal Update 1. independent and compliant with HEP Target Visit 6 Progress Met PT Problem 2 PT Problem #2 Pain PT Goal 1 Goal / Goal Update 1. reduce pain at worst to 3/10 or less in the lower back and hips/LE's Target Visit 16 Progress Not Met PT Problem 3 PT Problem #3 Impaired Range of Motion PT Goal 1 Goal / Goal Update 1. active lumbar flexion to the ankles without pain 2. 30 degrees active lumbar extension without pain 3. 40 degrees active lumbar side bending without pain 4. 40 degrees active lumbar rotation without pain Target Visit 16 Progress Partially Met PT Problem 4 PT Problem #4 Impaired Strength PT Goal 1 Goal / Goal Update 1. 5/5 bilateral ankle DF 2. 5/5 bilateral knee strength 3. 4+/5 bilateral hip strength. met Target Visit 16 Progress Partially Met PT Problem 5 PT Problem #5 Impaired Functional Mobility PT Goal 1 Goal / Goal Update 1. safe squat and lifting mechanics of 15lbs to waist level without increased pain. not met 2. patient to bend and lift small weight from floor to waist without increased pain. not met 3. no pain getting up from sitting in chair. met 4. LEFS to display 30% or less functional deficits 5. oswestry to display 20% or less functional deficits Target Visit 16
--- NOTE | 2024-03-12 16:13 | PTOPREEVAL ---
Assessment and note entered by JT File, PT Evaluation Information Assessment Status Re-evaluation ICD-10 Condition Codes (PT) Pain in low back M54.50,Pain in right hip M25.551, Pain in left hip M25.552 Other ICD-10 Condition Codes ( M06.9; M74.816; M79.18; M70.61; M70.62; G89.29 PT) Onset 01/03/24 Subjective Information patient reports she is improved, but lately has been a bit more flared up due to the colder weather. she reports she returns to see her referring MD tomorrow. she reports she would like to continue therapy if she can as it has helped reduce her back pain overall. she reports she really feels the benefit from dry needling and traction. Reported Pain Level Pain Score 3: Self Report Assessment PT Clinical Summary mrs. angel presents to skilled PT services for her 12th skilled PT visit today. she continues to have pain in the lower back, but reports it is better overall since her initial evaluation. she reports the treatment in PT help to relieve her pain and symptoms in the lower back, but reports these benefits do not last long. she has made progress towards reduced pain, sit to stand transfer performance, and lumbar rom. she would benefit from continued skilled PT to further address her remaining goals to improve her quality of life and functional activity performance. Plan of Care Interventions Electrical Stimulation,Hot Pack/Cold Pack,Manual Therapy,Mechanical Traction,Neuro Re-education, Patient/Caregiver Education,Therapeutic Activities ,Therapeutic Exercise,Other Other Interventions dry needling PT Services Indicated Yes Treatment Frequency and continue skilled PT 1x weekly for 4 more visits Duration These treatments will address the objective and functional deficits as defined above. The patient will be advanced safely and appropriately in order for the patient to progress towards his/her prior level of function. Additional exercises will be introduced and as well as a comprehensive home exercise program upon discharge, if needed, ?to ensure carryover of functional gains achieved in the clinic. This treatment plan has been reviewed and agreement upon by the patient.
== END 2024-03-19 20:00 | disposition home or self-care (01) ==
LOC: CHSPT 10:53
DX: M06.9 Rheumatoid arthritis, unspecified (principal); M47.816 Spondylosis without myelopathy or radiculopathy, lumbar region; M79.18 Myalgia, other site; M70.61 Trochanteric bursitis, right hip; M70.62 Trochanteric bursitis, left hip; M54.50 Low back pain, unspecified; G89.29 Other chronic pain
CPT/HCPCS: 97012; 97014; 97110; 97140; 97161; G0283

== ENCOUNTER 2024-04-01 08:40 | Outpatient (CLI) | payer MEDICARE, SELFPAY ==
--- NOTE | ~2024-04-01 | MR_ITS ---
EXAMINATION: MR brain/brain stem wo/w con DATE: 04/01/2024 09:38 INDICATION: Dizziness and giddiness. TECHNIQUE: Magnetic resonance imaging (MRI) of the brain and brainstem was performed without and with 14 mL MultiHance intravenous contrast. COMPARISON: None. FINDINGS: There are scattered areas of nonspecific increased T2-weighted signal intensity in the cere bral white matter. There is no intracranial hemorrhage, acute infarction, or abnormal intracranial ma ss lesion. The ventricles are normal in size. The paranasal sinuses are clear. The orbits are normal. There is a trace right mastoid effusion. IMPRESSION: 1. Mild nonspecific cerebral white matter disease, which likely represents chronic small vessel [place] disease. Reviewed, dictated and finalized at location A. ETRICS EXPERIMENTALIST IMPRESSION: 1. Mild nonspecific cerebral white matter disease, which likely represents extension service advisor vini small vessel ischemic disease.
--- OUTSIDE RECORDS SUMMARY | 2024-04-01 08:58 | XMS_ITS | Encounter Summary ---
Author Organization [facility] Address [address] [place] [address] Phone Care Team Providers Care Contracts Officer Name Role Phone Paula Cross MD Primary Care Provider + [phone] Paula Cross MD Unavailable [phone] Carl Darby Primary Care Provider [phone] Griselda Pat MD Primary Care Provider [phone] Encounter Details Date Type Department Care Team (Late st Contact Info) Description 01/02/2020 Orders Only [facility] Scanning, Provider Social History Tobacco Use Types Packs/Day Years Used Date Smoking Tobacco: Former Smokeless Tobacco: Never Alcohol Use Standard Drinks/Week Comments Never 0 (1 standard drink = 0.6 oz pur e alcohol) AUDIT-C Answer Date Recorded Frequency of Alcohol Consumption Never 05/15/2018 Average Number of Drinks Not on file 019 Frequency of Binge Drinking Not on file 04/27 Comments Unknown Sex and Gender Information Value Date Recorded Sex Assigned at Not on file Legal Sex Female 10:27 PM MARKETING/SALES PERSON Gender Identity Female 10/31/2017 1:36 PM CDT Sexual Orientation Not on file documented as of this encounter Plan of Treatment Not on file documented as of this encounter Procedures Procedure Name Priority Date/Time Associated Diagnosis Comments SCAN - RADIOLOGY/IMAGING 01/02/2020 documented in this encounter Results * SCAN - RADIOLOGY/IMAGING (01/02/2020) Anatomical Region Laterality Modality Other us Provider Scanning Final Result documented in this encounter Visit Diagnoses Not on filedocumented in this encounter Care Teams Contracts Officer Relationship Specialty Start Date End Date Paula Cross MD PCP - General 01/31/19 04/19/20 Carl Darby PA [address] [place] [address] PCP - General Physician Computer Consultant 04/20/20 11/07/20 Griselda Pat MD [address] [place] [address] PCP - General Family Medicine 11/08/20 Paula Cross MD Family Practice 01/31/19 01/09/21 documented as of this encounter
--- OUTSIDE RECORDS SUMMARY | 2024-04-01 08:58 | XMS_ITS | Clinical Summary ---
Author Organization [facility] Address [address] [place] [address]. [place], [place] [address] [place] [address] Care Team Providers Care Leather Roller Name Role Phone Griselda Pat MD Primary Care Provider [phone] Allergies Active Allergy Reactions Criticality Noted Date Comments Erythromycin Shortness of Breath, GI Upset High 01/31/2019 Reaction: Short of breath, ?? Stomach/GI Upset Indomethacin Shortness of Breath, GI Upset High 01/31/2019 Reaction: Short of breath, ?? Stomach/GI Upset Medications ALPRAZolam (XANAX) 0.5 MG tablet 3 Active Ascorbic Acid 1000 MG Tab daily. Active carboxymethylcell ulose-hypromellos e (GENTEAL) 0.25-0.3 % Gel ophthalmic gel Apply 2 drops to eye. Active Cholecalciferol 50 MCG (2000 UT) Tab 2 (two) times daily. Active Cobalamin Combinations (VITAMIN N60-LPWJJ ACID) 500-400 MCG Tab Acti ve EST ESTROGENS-METHYLT EST HS 0.625-1.25 MG tablet 2 Active conjugated estrogens (PREMARIN) 0.625 MG/GM vaginal cream APPLY 1/2 (ONE-HALF) GRAM 3 TIMES WEEKLY 2 Active folic acid (FOLVITE) 1 MG tablet Take 2 tablets (2 mg total) by mouth daily. 3 Active inFLIXimab (REMICADE) 100 MG injection Inject 30 mLs (300 mg total) into the vein Once every eight weeks. Active L-Lysine 500 MG Tab 2 (two) times daily. Active Multiple Vitamin (STRESS FORMULA) Tab daily. Active predniSONE (DELTASONE) 5 mg tablet Take 1 tablet (5 mg total) by mouth daily. 3 Active Simethicone 125 MG Cap TAKE CAPSULE PRN Active benzonatate (TESSALON) 200 MG capsule Take 1 capsule (200 mg total) by mouth 3 (three) times daily as needed for Cough. 30 capsule 3 Active cetirizine-pseudo ephedrine ER (ZYRTEC-D) 5mg-120mg 12 hr tablet Take 1 tablet by mouth daily. 28 tablet 3 Active Social History Tobacco Use Types Packs/Day Years Used Date Smoking Tobacco: Never Assessed Tobacco Cessation:Counseling Given: Not Answered Comments No Sex and Gender Information Value Date Recorded Sex Assigned at Not on file Legal Sex Female 3:29 PM CDT Gender Identity Not on file Sexual Orientation Not on file Last Filed Vital Signs Vital Sign Reading Time Taken Comments Blood Pressure 139/65 06/03/2022 3:53 PM CDT Pulse 78 06/03/2022 3:53 PM CDT Temperature 36.8 ??C (98.2 ??F) 06/03/2022 3:53 PM CD T Respiratory Rate 18 06/03/2022 3:53 PM CDT Oxygen Saturation 100% 06/03/2022 3:53 PM CDT Inhaled Oxygen Concentration - - Weight 68 kg (150 lb) 06/03/2022 3:53 PM CDT Height 160 cm (5' 3 ) 06/03/2022 3:53 PM CDT Body Mass Index 26.57 06/03/2022 3:53 PM CDT Plan of Treatment Health Maintenance Due Date Last Done Comments Colorectal Cancer Screening Colonoscopy (10 Years) 1950 Hepatitis C 11/29/1967 Mammogram Screening 1989 Annual Medicare Wellness Visit 2014 Dexa Scan (General) 2014 Pneumococcal Vaccine: 65+ Years (2 of 2 - PCV) 11/29/2016 11/30/2015, 12/04/2005 COVID-19 Vaccine ( season) 2023 09/16/2021, 01/13/2021, 05/17/2020, Additional history exists Influenza Adult (#1) 2023 12/31/2014 RSV Immunization or 60+ Years (1 - 1-dose 75+ series) 2024 DTaP, Tdap and Td Vaccines (2 - Td or Tdap) 11/29/2025 11/30/2015, 10/09/2002 Zoster Vaccines Completed 07/25/2018, 02/06/2018 Meningococcal B Vaccine Aged Out No l onger eligible based on patient's age to complete this topic Meningococcal Vaccine Aged Out No orlando karissa eligible based on patient's age to complete this topic RSV Immunizations Under 20 Months Aged Out No longer eligible based on patient's age to complete this topic Insurance [employer] Care Teams Leather Roller Relationship Specialty Start Date End Date Griselda Pat MD [address] [place] [address] PCP - General FAMILY PRACTICE 06/03/22
--- OUTSIDE RECORDS SUMMARY | 2024-04-01 08:58 | XMS_ITS | Patient Health Summary ---
Author Organization [facility] Address [address] [place] [address] Care Team Providers Care Recruitment Consultant Name Role Phone Unavailable Primary Care Provider Unavailabl e Note from [facility] [place],non-owned Affiliates and Associated Physician Practices is amultiple site organization consisting of ambulatory clinics and hospital sitesin [place], [place], [place] and [place]. This disclosure is being madepursuant to the Care Everywhere program and may not contain all information available regarding this patient. Last updated 17.[facility] Social History Tobacco Use Types Packs/Day Years Used Date Smoking Tobacco: Never Assessed Sex and Gender Information Value Date Recorded Sex Assigned at Not on file Gender Identity Not on file Sexual Orientation Not on file Procedures * DERMATOPATHOLOGY(Performed 02/05/2023) * DERMATOPATHOLOGY(Performed 04/05/2020) * IMMUNOFLUORESCENT STUDY DERM(Performed 11/19/2019) * DERMATOPATHOLOGY(Performed 11/19/2019) * DERMPATH SLIDE CONSULT(Performed 10/11/2017) * DERMATOPATHOLOGY(Performed 09/09/2015) Results * DERMATOPATHOLOGY (02/05/2023 9:54 AM ASSISTANT PROFESSOR OF ENGLISH) Only the most recent of4 resultswithin the time period is included. Case Report Dermatopathology Report ? Case: [id number] ? Authorizing Provider: ??Angelica Hall MD ?Collected: ? 02/05/2023 09:54 AM ? Ordering Location: ? [facility] ? Received: ?02/06/2023 12:49 PM ? Pathologist: ? Shalonda Celaya MD ? Specimen: ?Skin, right forearm ? 3 1:08 PM [facility]Y [facility]OR[facility] Final Diagnosis Specimen A. SKIN, right forearm: BENIGN VERRUCOUS KERATOSIS (L82.1) 3 1:08 PM [facility] DERMATOPATHOLOGY [facility]ORATORY Clinical History R/O SCC SK pink scaly papule 3 1:08 PM [facility]ERMATOPATHOLOGY [facility]ORAT[facility] Gross Description Specimen A: Received is one formalin filled container labeled with the patient's name and designated right forearm. The specimen consists of a shave biopsy measuring 8x6x2 mm. Jar 0. 3 1:08 PM [facility] DERMATOPATHOLOGY [facility]ORATORY Microscopic Description Specimen A. SKIN, right forearm: Sections show hyperkeratosis, papillomatosis, hypergranulosis, and acanthosis. These histological findings can be seen in a verruca vulgaris or a seborrheic keratosis. 3 1:08 PM [facility] DERMATOPATHOLOGY [facility]ORATORY Disclaimer An external and internal positive and negative controls are appropriate for the histochemical, immunohistochemical and immunofluorescence stain(s) in this case (if any), except where stated explicitly. The performance characteristics of the stain(s) cited in this report were developed and its performance characteristic determined by the Dermatopathology Laboratory at [facility], directed by Dr. Lizeth Hernandes. These tests need not be, and therefore are not, approved by the [place] Food and Drug Administration. The tests are used for clinical purposes. Billing Codes Specimen Charges Stain Charges 82031 1 3 1:08 PM ASSISTANT PROFESSOR OF ENGLISH DERMATOPATHOLOGY LABORATORY Embedded Images 3 1:08 PM ASSISTANT PROF[employer]OR [employer] ENGLISH DERMATOPATHOLOGY LABORATORY Pathology/Cytolo gy TISSUE SPECIMEN FROM SKIN / Unknown 02/05/2023 9:54 AM ASSISTANT PROFESSOR OF ENGLISH 02/06/2023 12:49 PM ASSISTANT PROFESSOR OF ENGLISH Angelica Hall MD LAB - PATHOLOGY/CYTO LOGY ORDERABLES DERMATOPATHOLOGY LABORATORY [facility] - Department of Dermatology [facility] [address] [place] [address], [address] [phone] * IMMUNOFLUORESCENT STUDY DERM (11/19/2019 12:00 AM CDT) Case Report Dermatopathology Report ? Case: [id number] ? Authorizing Provider: ??Angelica Hall MD ?Collected: ? 11/19/2019 12:00 AM ? Ordering Location: ? [facility] ?Received: ?11/20/2019 10:04 AM ? Pathologist: ? Tracey Cash MD ? Specimen: ?Skin, left hip ? 0 5:11 PM CDT DERMATOPATHOLOGY LABORATORY Final Diagnosis Specimen A. 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 [place] scaly plaques at arms, chest, ad upper neck/back. Hx of RA reticulated plaques. 0 5:11 PM CDT DERMATOPATHOLOGY LABORATORY Gross Description Specimen A: Received is one Sean's media filled container labeled with the patient's name and designated left hip. The specimen consists of a punch measuring [id number]. The specimen is submitted in whole for direct immunofluorescence testing. 0 5:11 PM CDT DERMATOPATHOLOGY LABORATORY Microscopic Description Specimen A. SKIN, left hip: Controls were run in parallel. Staining is negative with IgA, IgM, IgG, and C3. Collagen IV stains the basement membrane zone and vessels. Fibrinogen shows non-specific staining. Additional deeper sections were obtained and reviewed. 0 5:11 PM CDT DERMATOPATHOLOGY LABORATORY Disclaimer An external and internal positive and negative controls are appropriate for the histochemical, immunohistochemical and immunofluorescence stain(s) in this case (if any), except where stated explicitly. The performance characteristics of the stain(s) cited in this report were developed and its performance characteristic determined by the Dermatopathology Laboratory at [facility], directed by Dr. Lizeth Hernandes. These tests need not be, and therefore are not, approved by the [place] Food and Drug Administration. The tests are used for clinical purposes. Billing Codes Specimen Charges Stain Charges 05535 25522 45823 02398 88478 82367 1 1 1 1 1 1 0 5:11 PM CDT DERMATOPATHOLOGY LABORATORY Embedded Images 0 5:11 PM CDT DERMATOPATHOLOGY LABORATORY Pathology/Cytolog y TISSUE SPECIMEN FROM SKIN / Unknown 11/19/2019 11/20/2019 10:04 AM CDT Angelica Hall MD LAB - PATHOLOGY/CYTO LOGY ORDERABLES DERMATOPATHOLOGY LABORATORY [facility] - Department of Dermatology [address], [address] [phone] * DERMPATH SLIDE CONSULT (10/11/2017 12:00 AM CDT) Case Report Dermatopathology Report ? Case: [id number] ? Authorizing Provider: ??Carl Paniagua MD ?Collected: ? 10/11/2017 12:00 AM ? Pathologist: ? Nida Peraza MD ? Received: ?10/11/2017 10:14 AM ? Specimen: ?Slide(s), Left upper arm, Left 3rd finger, [id number] ? 8 10:05 AM CDT DERMATOPATHOLOGY LABORATORY Final Diagnosis Specimen A. Slide(s), Left upper arm, [id number]#[id number]: VACUOLAR INTERFACE DERMATITIS (L30.8) (see microscopic description and comment) Specimen A. 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 Carl Paniagua, a consult will be performed on 1 slide(s) and 1 block(s) labeled [id number]. Bx Date: 10/01/2017 R/O Lupus. All slides returned. Received at the request of Dr. Carl Paniagua, a consult will be performed on 1 slide(s) and 1 block(s) labeled [id number]. Bx Date: 10/01/2017 R/O Lupus. All slides returned. Any additional sections, special stains or immunohistochemical stains performed by our laboratory will be kept here on file. 10:05 AM [facility] DERMATOPATHOLOGY LABORATORY Microscopic Description Specimen A. Slide(s), Left upper arm, OSC#[id number]: There are scattered dyskeratotic keratinocytes and vacuolar alteration along the basal cell layer. A mild, perivascular lymphocytic infiltrate is observed in the superficial dermis. There are extravasated erythrocytes. A recut section is also reviewed. Periodic acid-Miguelito (PAS) stain highlights a thickened basement membrane and also fails to highlight fungal elements in the available sections. COMMENT: The histologic differential diagnosis includes a connective tissue disorder and a drug eruption. The former is favored. Clinicopathologic correlation is recommended. This case was also reviewed by Dr. Theresa Plaza who agrees with the diagnosis. Specimen A. Slide(s), Left 3rd finger, OSC#[id number]: Sections show acral type skin. There are scattered dyskeratotic keratinocytes and vacuolar alteration along the basal cell layer. In the dermis there is a vascular proliferation and superficial and deep perivascular lymphohistiocytic infiltrate with Extravasated erythrocytes. The histiocytes are highlighted with CD68 immunostain. A recut section is also reviewed. Periodic acid-Miguelito (PAS) stain highlights a thickened basement membrane and also fails to highlight fungal elements in the available sections. Colloidal iron stain highlights increased dermal mucin. COMMENT: The histological differential diagnosis includes a connective tissue disorder, which is favored, a drug eruption, pernioses, and less likely early interstitial granuloma annulare with a superimposed process. Clinical correlation is recommended. This case was also reviewed by Dr. Theresa Plaza who agrees with the diagnosis. 10:05 AM [facility] DERMATOPATHOLOGY LABORATORY Disclaimer An external and internal positive and negative controls are appropriate for the histochemical, immunohistochemical and immunofluorescence stain(s) in this case (if any), except where stated explicitly. The performance characteristics of the stain(s) cited in this report were developed and its performance characteristic determined by the Dermatopathology Laboratory at [facility]. These tests need not be, and therefore are not, approved by the [place] Food and Drug Administration. The tests are used for clinical purposes. Billing Codes Specimen Charges Stain Charges 46952 1 26984 44358 53806 00060 1 1 1 1 8 10:05 AM CDT DERMATOPATHOLOGY LABORATORY Embedded Images 8 10:05 AM CDT DERMATOPATHOLOGY LABORATORY Pathology/Cytolog y SLIDE / Unknown 10/11/2017 10/11/2017 10:14 AM CDT Carl Paniagua MD LAB - PATHOLOGY/CYTO LOGY ORDERABLES DERMATOPATHOLOGY LABORATORY [facility] - Department of Dermatology [address] [place] [address], [address] Floor Lab [address] [phone]
--- OUTSIDE RECORDS SUMMARY | 2024-04-01 08:58 | XMS_ITS | Encounter Summary ---
Author Organization [facility] Address [address] [place] [address] Phone Care Team Providers Care Wood Filler Name Role Phone Paula Cross MD Primary Care Provider + [phone] Paula Cross MD Unavailable [phone] Carl Darby Primary Care Provider [phone] Griselda Pat MD Primary Care Provider [phone] Encounter Details Date Type Department Care Team (Late st Contact Info) Description 01/13/2020 Orders Only [facility] Scanning, Provider Social History Tobacco Use [...] on file Legal Sex Female 10:27 PM HUMANITIES DIVISION CHAIR Gender Identity Female 10/31/2017 1:36 PM CDT Sexual Orientation Not on file documented as of this encounter Plan of Treatment Not on file documented as of this encounter Procedures Procedure Name Priority Date/Time Associated Diagnosis Comments CARDIOLOGY DOCUMENT SCAN 01/13/2020 SCAN - RADIOLOGY/IMAGING 01/12/2020 SCAN - LABS 01/12/2020 documented in this encounter Results * SCAN - CARDIOLOGY (01/13/2020) Anatomical Region Laterality Modality Other us Provider Scanning CV CARDIAC SERVICES PROCEDURES Final Result * SCAN - LABS (01/12/2020) us Provider Scanning Final Result * SCAN - RADIOLOGY/IMAGING (01/12/2020) Anatomical Region Laterality Modality Other us Provider Scanning Final Result documented in this encounter Visit Diagnoses Not on filedocumented in this encounter Care Teams Wood Filler Relationship Specialty Start Date End Date Paula Cross MD PCP - General 01/31/19 04/19/20 Carl Darby PA [address] [place] [address] PCP - General Physician Medical Apparatus Model Maker 04/20/20 11/07/20 Griselda Pat MD [address] [place] [address] PCP - General Family Medicine 11/08/20 Paula Cross MD Family Practice 01/31/19 01/09/21 documented as of this encounter
--- OUTSIDE RECORDS SUMMARY | 2024-04-01 08:58 | XMS_ITS | Clinical Summary ---
Author Organization [facility] Address [facility] [place] [address] Care Team Providers Care Rouge Presser Name Role Phone Griselda Pat MD Primary Care Provider [phone] Allergies Active Allergy Reactions Criticality Noted Date Comments Erythromycin Shortness of breath,Stomach upset High 01/31/2019 Reaction: Short of breath, ?? Stomach/GI Upset Other reaction(s): GI Upset Reaction: Short of breath, ?? Stomach/GI Upset Indomethacin Shortness of breath,Stomach upset High 01/31/2019 Reaction: Short of breath, ?? Stomach/GI Upset Other reaction(s): GI Upset Reaction: Short of breath, ?? Stomach/GI Upset Medications inFLIXimab (REMICADE) 100 mg injection Infuse 30 mL (300 mg total) into a venous catheter every 8 (eight) weeks Active ALPRAZolam (XANAX) 0.5 mg tablet TAKE 1 TABLET AT BEDTIME. 8 Active estrogens-methylT ESTOSTERone (EEMT,COVARYX) 0.625-1.25 mg per tabletIndications :Vasomotor Symptoms associated with Menopause daily. 8 Active OMEGA 9-ABS-OUQ-FISH OIL ORAL 2 capsules daily Active carboxymethylcell -hypromellose 0.25-0.3 % drops, liquid gel Administer 2 drops into both eyes daily Active levothyroxine (SYNTHROID, LEVOTHROID) 75 mcg tablet daily. 8 Active diclofenac sodium (VOLTAREN) 1 % gel Place on the skin 1 Active cholecalciferol (VITAMIN D-3) 2,000 unit tablet 2 (two) times a day Active ascorbic acid (VITAMIN C) 1,000 mg tablet daily. Active multivitamin, stress formula tablet daily. Active DM/p-ephed/acetam inoph/doxylam (NYQUIL D ORAL) Acti ve triamcinolone (NASACORT) 55 mcg nasal inhaler Administer 2 sprays into affected nostril(s) daily 8 Active methocarbamol (ROBAXIN) 500 mg tablet 7 Active lysine 500 mg tablet 2 times daily. Activ e betamethasone dipropionate (DIPROLENE) 0.05 % cream 8 Active clotrimazole-beta methasone (LOTRISONE) cream 8 Active naftifine HCl (NAFTIN TOP) Apply topically as needed Active clobetasol (TEMOVATE) 0.05 % cream Apply topically 2 (two) times a day 30 g 3 9 Active fluticasone propionate (CUTIVATE) 0.05 % creamIndications: Rash Apply topically daily To irritated areas on hands up to twice a day. 30 g 1 9 Active hydrocortisone (ANUSOL-HC) 25 mg suppository 0 Active vitamin D45-qkesm acid 0.5-1 mg tablet Take by mouth Active pimecrolimus (ELIDEL) 1 % cream 1 Active sulfamethoxazole- trimethoprim (BACTRIM DS) 800-160 mg per tablet 2 Active Premarin vaginal cream 2 Active levoFLOXacin (LEVAQUIN) 750 mg tablet 2 Active omeprazole (PriLOSEC) 20 mg capsule Take 1 capsule (20 mg total) by mouth daily 3 Active predniSONE (DELTASONE) 10 mg tablet Take 1 tablet (10 mg) by mouth daily 60 tablet 1 3 Active folic acid (FOLVITE) 1 mg tabletIndications :Rheumatoid arthritis involving multiple sites, unspecified whether rheumatoid factor present (HCC) Take 2 tablets by mouth once daily 180 tablet 1 4 Active predniSONE (DELTASONE) 5 mg tabletIndications :Rheumatoid arthritis involving multiple sites, unspecified whether rheumatoid factor present (HCC) Take 1 tablet by mouth once daily 90 tablet 1 4 Active methotrexate 2.5 mg tabletIndications :Rheumatoid arthritis involving multiple sites, unspecified whether rheumatoid factor present (HCC) TAKE 3 TABLETS EVERY 7 DAYS 36 tablet 1 4 Active Active Problems Problem Noted Date Diagnosed Date Chronic cough 05/16/2022 Assessment & Plan (05/16/2022 1:18 PM CDT): This has improved. I suspect probably reflux related. I recommended expectant treatment. Sore throat 05/16/2022 Assessment & Plan (05/16/2022 1:18 PM CDT): Reassured her that I do not find anything worrisome on her fiberoptic exam. Right now needs no aggressive intervention. Laryngopharyngeal reflux 05/16/2022 Assessment & Plan (05/16/2022 1:18 PM CDT): We discussed laryngopharyngeal reflux disease. It could be causing these symptoms. It can be improved through dietary management and we talked about various dietary changes to consider. Also discussed aggressive treatment through twice a day proton pump inhibitors. I also provided some literature regarding this type of reflux and this included instructions on dietary management. We also discussed the potential long-term side effects of proton pump inhibitors including liver and kidney disease and increased risk of dementia. I do not intend to continue treatment with this medication indefinitely unless there was no other way to get the symptoms under control and the patient wishes to continue taking them. Drug-induced systemic lupus erythematosus (CMS/H CC) 02/06/2018 Rheumatoid arthritis 07/06/2017 Atopic eczema 08/30/2016 Metatarsalgia 07/05/2015 Stress fracture of metatarsal bone 07/05/2015 Pain in pelvis 03/25/2015 Chronic pain in right foot 09/28/2014 Avitaminosis 09/28/2014 Chronic infection of sinus 03/25/2010 Encounters Date Type Department Care Team Description 03/18/2024 9:00 AM MARKET DEVELOPMENT DIRECTOR Infusion [facility] Infusion Therapy [address] [facility] 5th [place] [address] [place] [address] Rheumatoid arthritis, involving unspecified site, unspecified whether rheumatoid factor present (HCC) (Primary Dx) 03/13/2024 10:00 AM MARKET DEVELOPMENT DIRECTOR Office Visit [facility] Orthopaedic Surgery [address] [facility] 6th [place] [address] [place] [address] Katlyn Sarmiento MD Other low back pain (Primary Dx); Myofascial pain syndrome; Greater trochanteric bursitis of both hips 02/29/2024 Telephone [facility] Rheumatology [address] 5th [place] [address] [place] [address] Garima Lund MD 01/17/2024 9:00 AM MARKET DEVELOPMENT DIRECTOR Lab [facility] Endocrinology Metabolism and Lipid [address] [place] [address] [place] [address] [place] [address] Rheumatoid arthritis, involving unspecified site, unspecified whether rheumatoid factor present (HCC) [M06.9] (Primary Dx) 01/17/2024 9:00 AM MARKET DEVELOPMENT DIRECTOR Infusion [facility] Infusion Therapy [address] [place] [address] [place] [address] Rheumatoid arthritis, involving unspecified site, unspecified whether rheumatoid factor present (HCC) (Primary Dx) 01/03/2024 10:15 AM MARKET DEVELOPMENT DIRECTOR Office Visit [facility] Orthopaedic Surgery [facility] [facility] [facility] [address]th [place] [address] [place] [address] Katlyn Sarmiento MD Rheumatoid arthritis, involving unspecified site, unspecified whether rheumatoid factor present (HCC) (Primary Dx); Lumbar facet arthropathy; Myofascial pain syndrome; Greater trochanteric bursitis of both hips; Chronic bilateral low back pain without sciatica from Last 3 Months Immunizations Name Administration Dates Next Due Influenza, Trivalent, Preservative Free, Intramu scular 12/31/2014 PPD TEST 03/02/2010 ZOSTER Recombinant 07/25/2018,02/06/2018 Surgical History Surgery Date Site/Laterality Comments FL UPPER GI AIR CONTRAST W KUB 07/06/2021 Bilateral FL UPPER GI AIR CONTRAST W KUB 08/25/2021 Bilateral HYSTERECTOMY HEMORRHOID SURGERY TUBAL LIGATION 1985 Medical History Medical History Date Comments Thyroid disease Raynaud phenomenon Arthritis Vocal cord nodules Rheumatoid arthritis (HCC) Autoimmune disease (CMS/HCC) (HCC) GERD (gastroesophageal reflux disease) Family History Medical History Relation Name Comments Heart disease Father Terrell Marie Stroke Father Terrell Marie Cancer Mother Brenna Marie Heart disease Mother Brenna Marie Hip fracture Mother Brenna Marie Family his tory of hip fracture - (Added by TW Conv) Osteoporosis Mother Brenna Marie Family his tory of osteoporosis - (Added by TW Conv) Ovarian cancer Mother Brenna Marie Heart disease Sister Relation Name Status Comments Father Terrell Marie Mother Brenna Marie Sister Social History Tobacco Use Types Packs/Day Years Used Date Smoking Tobacco: Former Cigarettes 0.5 15 Smokeless Tobacco: Never Tobacco Cessation:Counseling Given: Not Answered Alcohol Use Standard Drinks/Week Comments Never 0 (1 standard drink = 0.6 oz pur e alcohol) AUDIT-C Answer Date Recorded Frequency of Alcohol Consumption Never 05/15/2018 Average Number of Drinks Not on file 019 Frequency of Binge Drinking Not on file 04/27 Comments Unknown Sex and Gender Information Value Date Recorded Sex Assigned at Not on file Legal Sex Female 10:27 PM MARKET DEVELOPMENT DIRECTOR Gender Identity Female 10/31/2017 1:36 PM CDT Sexual Orientation Not on file Obstetrics History Last Filed Vital Signs Vital Sign Reading Time Taken Comments Blood Pressure 150/71 03/18/2024 8:36 AM MARKET DEVELOPMENT DIRECTOR Pulse 59 03/18/2024 8:36 AM MARKET DEVELOPMENT DIRECTOR Temperature 36.4 ??C (97.6 ??F) 03/18/2024 8:36 AM CS T Respiratory Rate 14 03/18/2024 8:36 AM MARKET DEVELOPMENT DIRECTOR Oxygen Saturation 100% 03/18/2024 8:55 AM MARKET DEVELOPMENT DIRECTOR Inhaled Oxygen Concentration - - Weight 69.1 kg (152 lb 4.8 oz) 03/18/2024 8:36 A M MARKET DEVELOPMENT DIRECTOR Height 160 cm (5' 3 ) 10/03/2023 10:18 AM CDT Body Mass Index 26.98 10/03/2023 10:18 AM CDT Plan of Treatment Health Maintenance Due Date Last Done Comments Breast Cancer Screening-Mammogram 1950 Colon Cancer Screening-Colonoscopy 1950 Depression Screening 1950 Fall Risk Assessment 1950 Well Visit 65+ 2014 Pneumococcal vaccine 65+ (3 of 3 - PCV) 11/29/2016 1 , 12/04/2005 Osteoporosis Screening-Bone Density Scan 09/26/2017 09/27/2015 Influenza Vaccine (#1) 2023 12/31/2014 DTaP/Tdap/Td Vaccine (2 - Td or Tdap) 11/29/202505/2015, 10/09/2002 Zoster Vaccine Completed 07/25/2018, 02/06/2018 Hepatitis B Screening Completed 07/27/2021 Hepatitis C Screening Completed 07/27/2021 Procedures Procedure Name Priority Date/Time Associated Diagnosis Comments CBC WITHOUT DIFFERENTIAL Routine 01/17/2024 8:37 AM MARKET DEVELOPMENT DIRECTOR Rheumatoid arthritis, involving unspecified site, unspecified whether rheumatoid factor present (HCC) COMPREHENSIVE METABOLIC PANEL Routine 01/17/2024 8:37 AM MARKET DEVELOPMENT DIRECTOR Rheumatoid arthritis, involving unspecified site, unspecified whether rheumatoid factor present (HCC) HEPATITIS C ANTIBODY Routine 07/27/2021 2:49 PM CDT Rheumatoid arthritis involving multiple sites, unspecified whether rheumatoid factor present (HCC) Drug-induced systemic lupus erythematosus, unspecified organ involvement status (HCC) BONE MINERAL DENSITY 09/27/2015 from Last 3 Months or Most Recently Relevant to Health Maintenance Results * (ABNORMAL) CBC without differential (01/17/2024 8:37 AM MARKET DEVELOPMENT DIRECTOR) White Blood Count 5.1 3.6 - 11.2 K/uL [facility] RBC 3.53(L) 3.63 - 4.92 M/uL [facility] Hemoglobin 12.0 11.9 - 15.5 g/dL [facility] Hematocrit 35.3(L) 36.1 - 44.3 % [facility] MCV 100.0(H) 80.0 - 97.6 fL [facility] MCH 33.9(H) 26.7 - 33.7 pg [facility] MCHC 33.9 32.7 - 35.5 g/dL [facility] RBC Dist Width 13.9 12.3 - 17.0 % [facility] Platelet Count 255 140 - 440 K/uL [facility] MPV 8.8 6.8 - 10.4 fL [facility] Blood 01/17/2024 8:37 AM MARKET DEVELOPMENT DIRECTOR 01/17/2024 9:39 AM MARKET DEVELOPMENT DIRECTOR us Garima Lund MD LAB BLOOD ORDERABLES Final Result [facility] * Comprehensive metabolic panel (01/17/2024 8:37 AM MARKET DEVELOPMENT DIRECTOR) Total Protein 7.6 6.1 - 8.4 g/dL [facility] Albumin 4.0 3.5 - 5.2 g/dL [facility] Calcium 9.0 8.6 - 10.3 mg/dL [facility] BUN 20 7 - 23 mg/dL [facility] Total Bilirubin 0.35 0.20 - 1.40 mg/dL [facility] Alk Phos, Total 75 35 - 129 IU/L [facility] AST (SGOT) 26 11 - 47 IU/L [facility] ALT (SGPT) 20 6 - 53 IU/L [facility] Creatinine 0.83 0.60 - 1.10 mg/dL [facility] Sodium 137 135 - 145 mmol/L [facility] Potassium 3.7 3.3 - 5.1 mmol/L [facility] Chloride 103 95 - 107 mmol/L [facility] CO2 Content 27 21 - 29 mmol/L [facility] Glucose 92 64 - 99 mg/dL [facility] Comment: NONFASTING GLUCOSE RANGE = 64-199 mg/dL FASTING GLUCOSE 64 - 99 = NORMAL FASTING GLUCOSE 100 - 125 = IMPAIRED FASTING GLUCOSE FASTING GLUCOSE >=126 = PROVISIONAL DIAGNOSIS OF DIABETES eGFR 73.9 >60.0 mL/min/1.7 3 m2 [facility] Blood 01/17/2024 8:37 AM MARKET DEVELOPMENT DIRECTOR 01/17/2024 9:39 AM MARKET DEVELOPMENT DIRECTOR Garima Lund MD LAB BLOOD ORDERABLES Final Result [facility] CORE [facility] * Hepatitis C antibody (07/27/2021 2:49 PM CDT) Hep C Ab Nonreactive Nonreactive [facility] Comment:Antibodies to HCV no t detected. Does NOT exclude the possibility of recent exposure to HCV. Blood 07/27/2021 2:49 PM CDT 07/27/2021 5:08 PM CDT Garima Lund MD LAB MICROBIOLOGY - GENERAL ORDERABLES Edited Result - Final [facility] Department [place] [address] * BONE MINERAL DENSITY (09/27/2015) Anatomical Region Laterality Modality Radiographic Mary ging Narrative 09/27/2015 Ordered by an unspecified provider. Historical Provider IMG DXA PROCEDURES Final Result from Last 3 Months or Most Recently Relevant to Health Maintenance Insurance T MEDICARE T MEDICARE T MEDICARE Care Teams Rouge Presser Relationship Specialty Start Date End Date Griselda Pat MD PCP - General Family Medicine 11/08/20
--- OUTSIDE RECORDS SUMMARY | 2024-04-01 08:58 | XMS_ITS | Encounter Summary ---
Author Organization [facility] Address [address] [place] [address] Care Team Providers Care Calf Skinner Name Role Phone Unavailable Primary Care Provider Unavailabl e Encounter Details Date Type Department Care Team (Late st Contact Info) Description 02/05/2023 Lab Requisition [facility] - DermPath Lab [address] [facility] [place] [address] Angelica Hall MD [address] [facility] [address] [place] [address] Social History Tobacco Use Types Packs/Day Years Used Date Smoking Tobacco: Never Assessed Sex and Gender Information Value Date Recorded Sex Assigned at Not on file Gender Identity Not on file Sexual Orientation Not on file documented as of this encounter Plan of Treatment Not on file documented as of this encounter Procedures Procedure Name Priority Date/Time Associated Diagnosis Comments DERMATOPATHOLOGY Routine 02/05/2023 9:54 AM CHEMICAL SUPERVISOR documented in this encounter Results * DERMATOPATHOLOGY (02/05/2023 9:54 AM CHEMICAL SUPERVISOR) Case Report Dermatopathology Report ? Case: [id number] ? Authorizing Provider: ??Angelica Hall MD ?Collected: ? 02/05/2023 09:54 AM ? Ordering Location: ? [facility] ? Received: ?02/06/2023 12:49 PM ? Pathologist: ? Shalonda Celaya MD ? Specimen: ?Skin, right forearm ? 3 1:08 PM [facility] Final Diagnosis Specimen A. SKIN, right forearm: BENIGN VERRUCOUS KERATOSIS (L82.1) 3 1:08 PM [facility] Clinical History R/O SCC SK pink scaly papule 3 1:08 PM [facility] Gross Description Specimen A: Received is one formalin filled container labeled with the patient's name and designated right forearm. The specimen consists of a shave biopsy measuring 8x6x2 mm. Jar 0. 3 1:08 PM [facility] Microscopic Description Specimen A. SKIN, right forearm: Sections show hyperkeratosis, papillomatosis, hypergranulosis, and acanthosis. These histological findings can be seen in a verruca vulgaris or a seborrheic keratosis. 3 1:08 PM [facility] Disclaimer An external and internal positive and negative controls are appropriate for the histochemical, immunohistochemical and immunofluorescence stain(s) in this case (if any), except where stated explicitly. The performance characteristics of the stain(s) cited in this report were developed and its performance characteristic determined by the Dermatopathology Laboratory at [facility], directed by Dr. Lizeth Hernandes. These tests need not be, and therefore are not, approved by the [place] Food and Drug Administration. The tests are used for clinical purposes. Billing Codes Specimen Charges Stain Charges 86234 1 3 1:08 PM [facility] Embedded Images 3 1:08 PM CHEMICAL SUPERVISOR DERMATOPATHOLOGY LABORATORY Pathology/Cytolo gy TISSUE SPECIMEN FROM SKIN / Unknown 02/05/2023 9:54 AM CHEMICAL SUPERVISOR 02/06/2023 12:49 PM CHEMICAL SUPERVISOR Angelica Hall MD LAB - PATHOLOGY/CYTO LOGY ORDERABLES DERMATOPATHOLOGY LABORATORY [facility] - Department of Dermatology [facility] Medicine [address] [place] [address], [address] [phone] documented in this encounter Visit Diagnoses Not on filedocumented in this encounter
--- OUTSIDE RECORDS SUMMARY | 2024-04-01 08:58 | XMS_ITS | Encounter Summary ---
Author Organization [facility] Health Address [address] [facility] [place] [address] Care Team Providers Care Management Scientist Name Role Phone Unavailable Primary Care Provider Unavailabl e Encounter Details Date Type Department Care Team (Late st Contact Info) Description 11/20/2019 Lab Requisition [facility] Care DermPath Lab [address] [facility] [place] [address] Angelica Hall MD [address] [facility] [address] [place] [address] Social History Tobacco Use Types Packs/Day Years Used Date Smoking Tobacco: Never Assessed Sex and Gender Information Value Date Recorded Sex Assigned at Not on file Gender Identity Not on file Sexual Orientation Not on file documented as of this encounter Plan of Treatment Not on file documented as of this encounter Procedures Procedure Name Priority Date/Time Associated Diagnosis Comments DERMATOPATHOLOGY Routine 11/19/2019 12:0 0 AM CDT documented in this encounter Results * DERMATOPATHOLOGY (11/19/2019 12:00 AM CDT) Case Report Dermatopathology Report ? Case: [id number] ? Authorizing Provider: ??Angelica Hall MD ?Collected: ? 11/19/2019 12:00 AM ? Ordering Location: ? [facility] ?Received: ?11/20/2019 10:02 AM ? Pathologist: ? Tracey Cash MD ? Specimens: ?? A) - Skin, left upper arm ? B) - Skin, left thigh ? 0 5:10 PM CDT DERMATOPATHOLOGY LABORATORY Final Diagnosis Specimen A. SKIN, left upper arm: VACUOLAR INTERFACE DERMATITIS (L30.8) (see microscopic description and comment) (see direct immunofluorescence results [id number]) Specimen B. SKIN, left thigh: MILD SUPERFICIAL AND DEEP PERIVASCULAR LYMPHOCYTIC INFILTRATE (R21) (see microscopic description and comment) (see direct immunofluorescence results [id number]) 0 5:10 PM CDT DERMATOPATHOLOGY LABORATORY Clinical History A-B: CTD vs drug vs interstitial neutrophilic dermatosis. Talmage scaly plaques at arms, chest, ad upper neck/back. Hx of RA reticulated plaques. 0 5:10 PM CDT DERMATOPATHOLOGY LABORATORY Gross Description Specimen A: Received is one formalin filled container labeled with the patient's name and designated left upper arm. The specimen consists of a punch measuring [id number], bisected. Jar 0. Specimen B: Received is one formalin filled container labeled with the patient's name and designated left thigh. The specimen consists of a shave measuring [id number], bisected. Jar 0. 0 5:10 PM CDT DERMATOPATHOLOGY LABORATORY Microscopic Description Specimen A. SKIN, left upper arm: There are scattered dyskeratotic keratinocytes and vacuolar alteration along the basal cell layer. A mild, perivascular lymphocytic infiltrate is observed in the superficial dermis. Periadnexal or deeper dermal infiltrate is not appreciated. Periodic acid-Miguelito (PAS) stain reveals mild focal basement membrane thickening, however fails to highlight fungal elements in the available sections. Sirius red does not reveal eosinophils. COMMENT: These histologic features can be seen in a connective tissue disorder. A drug eruption is less likely due to the lack of eosinophils. Specimen B. SKIN, left thigh: The epidermis is unremarkable. In the dermis there is a mild superficial and deep perivascular lymphocytic infiltrate without eosinophils. Focal perifollicular inflammation is seen. Periodic acid-Miguelito (PAS) stain fails to highlight fungal elements or significant basement membrane thickening in the available sections. Sirius red does not reveal eosinophils. COMMENT: The histological differential diagnosis is extensive and includes connective tissue disorder (favored due to the histologic findings in specimen A), an infectious related exanthem, a drug eruption, gyrate erythemas, and less likely lymphoma/leukemia cutis. Clinical correlation is recommended. See direct immunofluorescence results. 0 5:10 PM CDT DERMATOPATHOLOGY LABORATORY Disclaimer An external and internal positive and negative controls are appropriate for the histochemical, immunohistochemical and immunofluorescence stain(s) in this case (if any), except where stated explicitly. The performance characteristics of the stain(s) cited in this report were developed and its performance characteristic determined by the Dermatopathology Laboratory at [facility], directed by Dr. Lizeth Hernandes. These tests need not be, and therefore are not, approved by the [place] Food and Drug Administration. The tests are used for clinical purposes. Billing Codes Specimen Charges Stain Charges 24346 72277 1 1 [id number] 77709 1 1 1 1 0 5:10 PM CDT DERMATOPATHOLOGY LABORATORY Embedded Images 0 5:10 PM CDT DERMATOPATHOLOGY LABORATORY Pathology/Cytology TISSUE SPECIMEN FROM SKIN / Unknown 11/19/2019 11/20/2019 10:02 AM CDT Miscellaneous samples (specimen) TISSUE SPECIMEN FROM SKIN / Unknown 11/19/2019 11/20/2019 10:02 AM CDT Angelica Hall MD LAB - PATHOLOGY/CYTO LOGY ORDERABLES DERMATOPATHOLOGY LABORATORY [facility] - Department of Dermatology [facility] Medicine [address] [place] [address], [address] [phone] documented in this encounter Visit Diagnoses Not on filedocumented in this encounter
--- OUTSIDE RECORDS SUMMARY | 2024-04-01 08:58 | XMS_ITS | Continuity of Care Document ---
Author Organization [facility] Address [address] [place] [address] [place] [address] Phone Care Team Providers Care Event Specialist Product Demonstrator Name Role Phone Cooper Akins Unavailable Unavailable Procedures Procedure Date Eye Exam, New Patient Refraction Advance Directives Directive Yes / No Effective Date File Name No Information Encounters Encounter Description Practice Location Reason(s) For Visit Diagnoses Date Provider Providers Copied on Encounter [facility], [address], [place], [place], [id number], [place] tel:[phone] [facility] No Information [address]. [address] , [address], [place], [address], [place]. tel:[phone] Family History Family Member Type Diagnosis Age [...]
--- OUTSIDE RECORDS SUMMARY | 2024-04-01 08:58 | XMS_ITS | Encounter Summary ---
Author Organization [facility] Address [address] [facility] [place] [address] Phone Care Team Providers Care Ladle Liner Helper Name Role Phone Paula Cross MD Primary Care Provider + [phone] Paula Cross MD Unavailable [phone] Carl Darby Primary Care Provider [phone] Griselda Pat MD Primary Care Provider + [phone] Encounter Details Date Type Department Care Team (Late st Contact Info) Description 11/10/2019 Orders Only [facility] Scanning, Provider Social [...] on file Legal Sex Female 10:27 PM MANUFACTURING MACHINE OPERATOR Gender Identity Female 10/31/2017 1:36 PM CDT Sexual Orientation Not on file documented as of this encounter Plan of Treatment Not on file documented as of this encounter Procedures Procedure Name Priority Date/Time Associated Diagnosis Comments SCAN - LABS 11/10/2019 documented in this encounter Results * SCAN - LABS (11/10/2019) us Provider Scanning Final Result documented in this encounter Visit Diagnoses Not on filedocumented in this encounter Care Teams Ladle Liner Helper Relationship Specialty Start Date End Date Paula Cross MD PCP - General 01/31/19 04/19/20 Carl Darby, PA [address] [place] [address] PCP - General Physician Dispatcher Tow Truck 04/20/20 11/07/20 Griselda Pat MD [address] [place] [address] PCP - General Family Medicine 11/08/20 Paula Cross MD Family Practice 01/31/19 01/09/21 documented as of this encounter
--- OUTSIDE RECORDS SUMMARY | 2024-04-01 08:58 | XMS_ITS | Encounter Summary ---
Author Organization [facility] Address [address] [facility] [place] [address] Care Team Providers Care Demographic Analyst Name Role Phone Unavailable Primary Care Provider Unavailabl e Encounter Details Date Type Department Care Team (Late st Contact Info) Description 04/06/2020 Lab Requisition [facility] [address] [facility], [place] [address] Angelica Hall MD [address] [facility] [address] [place] [address] Social History Tobacco Use Types Packs/Day Years Used Date Smoking Tobacco: Never Assessed Sex and Gender Information Value Date Recorded Sex Assigned at Not on file Gender Identity Not on file Sexual Orientation Not on file documented as of this encounter Plan of Treatment Not on file documented as of this encounter Procedures Procedure Name Priority Date/Time Associated Diagnosis Comments DERMATOPATHOLOGY Routine 04/05/2020 12:0 0 AM SHOP TECH documented in this encounter Results * DERMATOPATHOLOGY (04/05/2020 12:00 AM SHOP TECH) Case Report Dermatopathology Report ? Case: [id number] ? Authorizing Provider: ??Angelica Hall MD ?Collected: ? 04/05/2020 12:00 AM ? Ordering Location: ? [facility] ?Received: ?04/06/2020 11:35 AM ? Pathologist: ? Shalonda Cealya MD ? Specimen: ?Skin, left nose bridge ? 12:45 PM [facility] DERMATOPATHOLOGY LABORATORY Final Diagnosis Specimen A. SKIN, left nose bridge: ANGIOFIBROMA (FIBROUS PAPULE) (D21.0) (see microscopic description) 12:45 PM [facility] DERMATOPATHOLOGY LABORATORY Clinical History R/O BCC vs Less LE 12:45 PM [facility] DERMATOPATHOLOGY LABORATORY Gross Description Specimen A: Received is one formalin filled container labeled with the patient's name and designated left nose bridge. The specimen consists of a shave biopsy measuring 3x2x1 mm. Jar 0. 12:45 PM [facility] DERMATOPATHOLOGY LABORATORY Microscopic Description Specimen A. SKIN, left nose bridge: This dome-shaped lesion contains dilated blood vessels, coarse collagen bundles, and stellate fibroblasts. Additional deeper sections were obtained and reviewed. 12:45 PM [facility] DERMATOPATHOLOGY LABORATORY Disclaimer An external and internal positive and negative controls are appropriate for the histochemical, immunohistochemical and immunofluorescence stain(s) in this case (if any), except where stated explicitly. The performance characteristics of the stain(s) cited in this report were developed and its performance characteristic determined by the Dermatopathology Laboratory at [facility], directed by Dr. Lizeth Hernandes. These tests need not be, and therefore are not, approved by the [place] Food and Drug Administration. The tests are used for clinical purposes. Billing Codes Specimen Charges Stain Charges 53209 1 12:45 PM [facility] DERMATOPATHOLOGY LABORATORY Embedded Images 12:45 PM [facility] DERMATOPATH[facility]Y LABORATORY Pathology/Cytolog y TISSUE SPECIMEN FROM SKIN / Unknown 04/05/2020 04/06/2020 11:35 AM SHOP TECH Angelica Hall MD LAB - PATHOLOGY/CYTO LOGY ORDERABLES DERMATOPATHOLOGY LABORATORY [facility] - Department of Dermatology [facility] [address] [place] [address], [address] [phone] documented in this encounter Visit Diagnoses Not on filedocumented in this encounter
--- OUTSIDE RECORDS SUMMARY | 2024-04-01 08:58 | XMS_ITS | Referral Summary ---
Author Organization [facility] Address [address] [facility] [place] [address] Care Team Providers Care Bath Tester Name Role Phone Unavailable Primary Care Provider Unavailabl e Source Comments [facility],non-owned Affiliates and Associated Physician Practices is amultiple site organization consisting of ambulatory clinics and hospital sitesin [place], [place], [place] and [place]. This disclosure is being madepursuant to the Care Everywhere program and may not contain all information available regarding this patient. Last updated 17.[facility] [employer] Social History Tobacco Use Types Packs/Day Years Used Date Smoking Tobacco: Never Assessed Sex and Gender Information Value Date Recorded Sex Assigned at Not on file Gender Identity Not on file Sexual Orientation Not on file Plan of Treatment Not on file
--- OUTSIDE RECORDS SUMMARY | 2024-04-01 08:58 | XMS_ITS | Encounter Summary ---
Author Organization [facility] Address [address] [facility] [place] [address] Care Team Providers Care Instructional Support Services Director Name Role Phone Unavailable Primary Care Provider Unavailabl e Encounter Details Date Type Department Care Team (Late st Contact Info) Description 11/20/2019 Lab Requisition [facility] [address] [facility] [place] [address] Angelica Hall MD [address] [facility] [address] [place] [address] Social History Tobacco Use Types Packs/Day Years Used Date Smoking Tobacco: Never Assessed Sex and Gender Information Value Date Recorded Sex Assigned at Not on file Gender Identity Not on file Sexual Orientation Not on file documented as of this encounter Plan of Treatment Not on file documented as of this encounter Procedures Procedure Name Priority Date/Time Associated Diagnosis Comments IMMUNOFLUORESCENT STUDY DERM Routine 11/19/2019 12:00 AM CDT documented in this encounter Results * IMMUNOFLUORESCENT STUDY DERM (11/19/2019 12:00 AM CDT) Case Report Dermatopathology Report ? Case: [id number] ? Authorizing Provider: ??Angelica Hall MD ?Collected: ? 11/19/2019 12:00 AM ? Ordering Location: ? [facility] ?Received: ?11/20/2019 10:04 AM ? Pathologist: ? Tracey Cash MD ? Specimen: ?Skin, left hip ? 0 5:11 PM CDT DERMATOPATHOLOGY LABORATORY Final Diagnosis Specimen A. 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 [place] scaly plaques at arms, chest, ad upper neck/back. Hx of RA reticulated plaques. 0 5:11 PM CDT DERMATOPATHOLOGY LABORATORY Gross Description Specimen A: Received is one Sean's media filled container labeled with the patient's name and designated left hip. The specimen consists of a punch measuring [id number]. The specimen is submitted in whole for [...] characteristic determined by the Dermatopathology Laboratory at [facility], directed by Dr. Lizeth Hernandes. These tests need not be, and therefore are not, approved by the [place] Food and Drug Administration. The tests are used for clinical purposes. Billing Codes Specimen Charges Stain Charges 47287 14126 32652 53726 26925 82297 1 1 1 1 1 1 0 5:11 PM CDT DERMATOPATHOLOGY LABORATORY Embedded Images 0 5:11 PM CDT DERMATOPATHOLOGY LABORATORY Pathology/Cytolog y TISSUE SPECIMEN FROM SKIN / Unknown 11/19/2019 11/20/2019 10:04 AM CDT Angelica Hall MD LAB - PATHOLOGY/CYTO LOGY ORDERABLES DERMATOPATHOLOGY LABORATORY [facility] - Department of Dermatology [facility] Medicine [address] [place] [address], [address] [phone] documented in this encounter Visit Diagnoses Not on filedocumented in this encounter
--- OUTSIDE RECORDS SUMMARY | 2024-04-01 08:58 | XMS_ITS | Clinical Summary ---
Author Organization [facility] Address [address] [place] [address] Care Team Providers Care Wallpaper Consultant Name Role Phone Unavailable Primary Care Provider Unavailabl e Source Comments [facility] [employer],non-owned Affiliates and Associated Physician Practices is amultiple site organization consisting of ambulatory clinics and hospital sitesin [place], [place], [place] and [place]. This disclosure is being madepursuant to the Care Everywhere program and may not contain all information available regarding this patient. Last updated 17.[facility] [employer] Social History Tobacco Use Types Packs/Day Years Used Date Smoking Tobacco: Never Assessed Sex and Gender Information Value Date Recorded Sex Assigned at Not on file Gender Identity Not on file Sexual Orientation Not on file Plan of Treatment Health Maintenance Due Date Last Done Comments BONE DENSITY TESTING 1950 COLOGUARD (AGES 45-75) - COL ON CA SCREENING 1950 COLON MONITORING 1949 COLONOSCOPY - COLON CA SCREENING 1949 CT COLONOGRAPHY - COLON CA SCREENING 1950 Colorectal Cancer Screening 1950 FIT - COLON CA SCREENING 1949 FLEX SIG - COLON CA SCREENING 1949 LIPID TESTING 1950 MAMMOGRAM 1950 HEPATITIS C SCREENING 11/24/1967 DTAP/TDAP/TD VACCINES (1 - Tdap) 1968 PNEUMOCOCCAL VACCINE 50+ (1 of 1 - PCV) 11/29/1999 ZOSTER VACCINE (1 of 2) 11/29/1999 COVID-19 VACCINE ( - 2023-2 5 season) 2023 INFLUENZA VACCINE (#1) 2023 DEPRESSION SCREENING 02/27/2024 MEDICARE AWV ? CALENDAR YEAR 2024 Respiratory Syncytial Virus (RSV) Vaccine Pt: or over 60 yrs (1 - 1-dose 75+ series) 2024 HEPATITIS B VACCINE Aged Out No longe r eligible based on patient's age to complete this topic HIB VACCINE Aged Out No longer eligi ble based on patient's age to complete this topic HPV VACCINE Aged Out No longer eligi ble based on patient's age to complete this topic MENINGOCOCCAL (Group B) VACCINE Aged Out No longer eligible based on patient's age to complete this topic MENINGOCOCCAL VACCINE Aged Out No orlando karissa eligible based on patient's age to complete this topic
--- OUTSIDE RECORDS SUMMARY | 2024-04-01 08:58 | XMS_ITS | Encounter Summary ---
Author Organization [facility] Address [address] [place] [address] Phone Care Team Providers Care Naphthalene Still Operator Name Role Phone Griselda Pat MD Primary Care Provider [phone] Encounter Details Date Type Department Care Team (Late st Contact Info) Description 02/03/2022 Orders Only [facility] Scanning, Provider Social [...] on file Legal Sex Female 10:27 PM DIRECTOR CHILD ABUSE THERAPY Gender Identity Female 10/31/2017 1:36 PM CDT Sexual Orientation Not on file documented as of this encounter Plan of Treatment Not on file documented as of this encounter Procedures Procedure Name Priority Date/Time Associated Diagnosis Comments SCAN - RADIOLOGY/IMAGING 02/03/2022 documented in this encounter Results * SCAN - RADIOLOGY/IMAGING (02/03/2022) Anatomical Region Laterality Modality Other us Provider Scanning Final Result documented in this encounter Visit Diagnoses Not on filedocumented in this encounter Care Teams Naphthalene Still Operator Relationship Specialty Start Date End Date Griselda Pat MD PCP - General Family Medicine 11/08/20 documented as of this encounter
--- OUTSIDE RECORDS SUMMARY | 2024-04-01 08:58 | XMS_ITS | Referral Summary ---
Author Organization [facility] Address [address] [place] [address] Care Team Providers Care Patrol Commander Name Role Phone Griselda Pat MD Primary Care Provider [phone] Encounters Date Type Department Care Team Description 03/18/2024 9:00 AM CAN HANDLER Infusion [facility] Infusion Therapy [address] [facility] 5th [place] [address] [place] [phone] Rheumatoid arthritis, involving unspecified site, unspecified whether rheumatoid factor present (HCC) (Primary Dx) 03/13/2024 10:00 AM CAN HANDLER Office Visit [facility] Orthopaedic Surgery [address] [place] [address] 6th [place] [address] [place] [id number] Katlyn Sarmiento MD Other low back pain (Primary Dx); Myofascial pain syndrome; Greater trochanteric bursitis of both hips 02/29/2024 Telephone [facility] Rheumatology [address] [facility] 5th [place] [address] [place] [id number] Garima Lund MD 01/17/2024 9:00 AM CAN HANDLER Lab [facility] Endocrinology Metabolism and Lipid [address] [facility] 5th [place] [address] [place] [phone] Rheumatoid arthritis, involving unspecified site, unspecified whether rheumatoid factor present (HCC) [M06.9] (Primary Dx) 01/17/2024 9:00 AM CAN HANDLER Infusion [facility] Infusion Therapy [address] [facility] 5th [place] [address] [place] [phone] Rheumatoid arthritis, involving unspecified site, unspecified whether rheumatoid factor present (HCC) (Primary Dx) 01/03/2024 10:15 AM CAN HANDLER Office Visit [facility] Orthopaedic Surgery [address] [facility] 6th [place] [address] Katlyn Sarmiento MD Rheumatoid arthritis, involving unspecified site, unspecified whether rheumatoid factor present (HCC) (Primary Dx); Lumbar facet arthropathy; Myofascial pain syndrome; Greater trochanteric bursitis of both hips; Chronic bilateral low back pain without sciatica from Last 3 Months Allergies Active Allergy Reactions Criticality Noted Date [...] associated with Menopause daily. 8 Active OMEGA 0-YXH-CND-FISH OIL ORAL 2 capsules daily Active carboxymethylcell [...] (ANUSOL-HC) 25 mg suppository 0 Active vitamin P33-cyryd acid 0.5-1 mg tablet Take by mouth [...] Avitaminosis 09/28/2014 Chronic infection of sinus 03/25/2010 Immunizations Name Administration Dates Next Due Influenza, Trivalent, Preservative Free, Intramu scular 12/31/2014 PPD TEST 03/02/2010 ZOSTER Recombinant 07/25/2018,02/06/2018 Social History Tobacco Use Types Packs/Day Years [...] on file Legal Sex Female 10:27 PM CAN HANDLER Gender Identity Female 10/31/2017 1:36 PM CDT Sexual Orientation Not on file Last Filed Vital Signs Vital Sign Reading Time Taken Comments Blood Pressure 150/71 03/18/2024 8:36 AM CAN HANDLER Pulse 59 03/18/2024 8:36 AM CAN HANDLER Temperature 36.4 ??C (97.6 ??F) 03/18/2024 8:36 AM CS T Respiratory Rate 14 03/18/2024 8:36 AM CAN HANDLER Oxygen Saturation 100% 03/18/2024 8:55 AM CAN HANDLER Inhaled Oxygen Concentration - - Weight 69.1 kg (152 lb 4.8 oz) 03/18/2024 8:36 A M CAN HANDLER Height 160 cm (5' 3 ) 10/03/2023 10:18 AM CDT Body Mass Index 26.98 10/03/2023 10:18 AM CDT Plan of Treatment Not on file Procedures Procedure Name Priority Date/Time Associated Diagnosis Comments CBC WITHOUT DIFFERENTIAL Routine 01/17/2024 8:37 AM CAN HANDLER Rheumatoid arthritis, involving unspecified site, unspecified whether rheumatoid factor present (HCC) COMPREHENSIVE METABOLIC PANEL Routine 01/17/2024 8:37 AM CAN HANDLER Rheumatoid arthritis, involving unspecified site, unspecified whether rheumatoid factor present (HCC) HEPATITIS C ANTIBODY Routine 07/27/2021 2:49 PM CDT Rheumatoid arthritis involving multiple sites, unspecified whether rheumatoid factor present (HCC) Drug-induced systemic lupus erythematosus, unspecified organ involvement status (HCC) BONE MINERAL DENSITY 09/27/2015 from Last 3 Months or Most Recently Relevant to Health Maintenance Results * (ABNORMAL) CBC without differential (01/17/2024 8:37 AM CAN HANDLER) White Blood Count 5.1 3.6 - 11.2 [...] [facility] Blood 01/17/2024 8:37 AM CAN HANDLER 01/17/2024 9:39 AM CAN HANDLER us Garima Lund MD LAB BLOOD ORDERABLES Final Result [facility] * Comprehensive metabolic panel (01/17/2024 8:37 AM CAN HANDLER) Total Protein 7.6 6.1 - 8.4 g/dL [...] [facility] Blood 01/17/2024 8:37 AM CAN HANDLER 01/17/2024 9:39 AM CAN HANDLER Garima Lund MD LAB BLOOD ORDERABLES Final Result [facility] * Hepatitis C antibody (07/27/2021 2:49 PM CDT) Hep C Ab Nonreactive Nonreactive [facility] Comment:Antibodies to HCV no t detected. Does NOT exclude the possibility of recent exposure to HCV. Blood 07/27/2021 2:49 PM CDT 07/27/2021 5:08 PM CDT Garima Lund MD LAB MICROBIOLOGY - GENERAL ORDERABLES Edited Result - Final Performing Organization Address City/[facility] Co de Phone Number [facility] Department [place] [address] * BONE MINERAL DENSITY (09/27/2015) Anatomical Region Laterality Modality Radiographic Mary ging Narrative 09/27/2015 Ordered by an unspecified provider. Historical Provider IMG DXA PROCEDURES Final Result from Last 3 Months or Most Recently Relevant to Health Maintenance Insurance [employer] MEDICARE AETNA MEDICARE AETNA MEDICARE Care Teams Patrol Commander Relationship Specialty Start Date End Date Griselda Pat MD PCP - General Family Medicine 11/08/20
--- OUTSIDE RECORDS SUMMARY | 2024-04-01 08:58 | XMS_ITS | Encounter Summary ---
Author Organization [facility] Address [address] [place] [address] Phone Care Team Providers Care Financial Center Manager Name Role Phone Paula Cross MD Primary Care Provider + [phone] Paula Cross MD Unavailable [phone] Carl Darby Primary Care Provider [phone] Griselda Pat MD Primary Care Provider [phone] Encounter Details Date Type Department Care Team (Late st Contact Info) Description 11/19/2019 Orders Only [facility] Scanning, Provider Social [...] on file Legal Sex Female 10:27 PM KILN HAND Gender Identity Female 10/31/2017 1:36 PM CDT Sexual Orientation Not on file documented as of this encounter Plan of Treatment Not on file documented as of this encounter Procedures Procedure Name Priority Date/Time Associated Diagnosis Comments SCAN - PATHOLOGY 11/19/2019 documented in this encounter Results * SCAN - PATHOLOGY (11/19/2019) us Provider Scanning Final Result documented in this encounter Visit Diagnoses Not on filedocumented in this encounter Care Teams Financial Center Manager Relationship Specialty Start Date End Date Paula Cross MD PCP - General 01/31/19 04/19/20 Carl Darby, PA [address] [place] [address] PCP - General Physician Overlock Elastic Attacher 04/20/20 11/07/20 Griselda Pat MD [address] [place] [address] PCP - General Family Medicine 11/08/20 Paula Cross MD Family Practice 01/31/19 01/09/21 documented as of this encounter
--- OUTSIDE RECORDS SUMMARY | 2024-04-01 08:58 | XMS_ITS | Encounter Summary ---
Author Organization [facility] Health Address [address] [place] [address] Care Team Providers Care Deputy Sheriff/Investigator Name Role Phone Unavailable Primary Care Provider Unavailabl e Encounter Details Date Type Department Care Team (Late st Contact Info) Description 10/11/2017 Lab Requisition [facility] Care DermPath Lab [address] [facility] [facility] [place] [id number] Carl Paniagua MD [address] [place] [address] Social History Tobacco Use Types Packs/Day Years Used Date Smoking Tobacco: Never Assessed Sex and Gender Information Value Date Recorded Sex Assigned at Not on file Gender Identity Not on file Sexual Orientation Not on file documented as of this encounter Plan of Treatment Not on file documented as of this encounter Procedures Procedure Name Priority Date/Time Associated Diagnosis Comments DERMPATH SLIDE CONSULT Routine 10/11/2017 12:00 AM CDT documented in this encounter Results * DERMPATH SLIDE CONSULT (10/11/2017 12:00 AM CDT) Case Report Dermatopathology Report ? Case: [id number] ? Authorizing Provider: ??Carl Paniagua MD ?Collected: ? 10/11/2017 12:00 AM ? Pathologist: ? Nida Peraza MD ? Received: ?10/11/2017 10:14 AM ? Specimen: ?Slide(s), Left upper arm, Left 3rd finger, [id number] ? 10:05 AM [facility] Final Diagnosis Specimen A. Slide(s), Left upper arm, [id number]#[id number]: VACUOLAR INTERFACE DERMATITIS (L30.8) (see microscopic description and comment) Specimen A. Slide(s), Left 3rd finger, [id number]#[id number]: VACUOLAR INTERFACE DERMATITIS (L30.8) SUPERFICIAL AND DEEP PERIVASCULAR LYMPHOHISTIOCYTIC INFILTRATE WITH EXTRAVASATED ERYTHROCYTES (R21) (see microscopic description and comment) 10:05 AM [facility] Clinical History Materials received from: [employer] [address] [place] [id number] Received at the request of Dr. Carl Paniagua, a consult will be performed on 1 slide(s) and 1 block(s) labeled [id number]. Bx Date: 10/01/2017 R/O Lupus. All slides returned. Received at the request of Dr. Carl Paniagua, a consult will be performed on 1 slide(s) and 1 block(s) labeled [id number]. Bx Date: 10/01/2017 R/O Lupus. All slides returned. Any additional sections, special stains or immunohistochemical stains performed by our laboratory will be kept here on file. 10:05 AM [facility] Microscopic Description Specimen A. Slide(s), Left upper arm, [id number]: There are scattered dyskeratotic keratinocytes and vacuolar [...] diagnosis. Specimen A. Slide(s), Left 3rd finger, [id number]#[id number]: Sections show acral type skin. There are [...] Theresa Plaza who agrees with the diagnosis. 8 10:05 AM T DERMATOPATHOLOGY LABORATORY Disclaimer An external and internal positive and negative controls are appropriate for the histochemical, immunohistochemical and immunofluorescence stain(s) in this case (if any), except where stated explicitly. The performance characteristics of the stain(s) cited in this report were developed and its performance characteristic determined by the Dermatopathology Laboratory at [facility]. These tests need not be, and therefore are not, approved by the [place] Food and Drug Administration. The tests are used for clinical purposes. Billing Codes Specimen Charges Stain Charges 51166 1 38511 60904 02169 12338 1 1 1 1 8 10:05 AM T DERMATOPATHOLOGY LABORATORY Embedded Images 8 10:05 AM CDT DERMATOPATHOLOGY LABORATORY Pathology/Cytolog y SLIDE / Unknown 10/11/2017 10/11/2017 10:14 AM CDT Carl Paniagua MD LAB - PATHOLOGY/CYTO LOGY ORDERABLES DERMATOPATHOLOGY LABORATORY [facility] - Department of Dermatology [address] [place] [address], [address] [place] [address], [facility] [phone] documented in this encounter Visit Diagnoses Not on filedocumented in this encounter
== END 2024-04-01 08:41 | disposition home or self-care (01) ==
PROVIDERS: PCP Family Medicine; Visit Provider Family Medicine
DX: R42 Dizziness and giddiness (principal); R90.82 White matter disease, unspecified
CPT/HCPCS: 70553; A9577

== ENCOUNTER 2024-09-18 08:52 | Outpatient (RCR) | payer MEDICARE, SELFPAY ==
--- NOTE | 2024-09-18 10:12 | OPREHPOC ---
Outpatient Therapy Plan of Care This is a Multidisciplinary Plan of Care that may contain components documented by all disciplines (PT, OT, and ST.) PT Problem 1 PT Problem #1 Knowledge Deficit PT Goal 1 Goal / Goal Update independent and compliant with HEP Target Visit 6 PT Problem 2 PT Problem #2 Pain PT Goal 1 Goal / Goal Update patient to report 50% reduced pain level in the lower back and R LE Target Visit 12 PT Problem 3 PT Problem #3 Impaired Strength PT Goal 1 Goal / Goal Update 4/5 bilateral hip strength or better overall 5/5 bilateral knee strength 4+/5 or better R ankle DF Target Visit 12 PT Problem 4 PT Problem #4 Impaired Range of Motion PT Goal 1 Goal / Goal Update patient to perform lumbar side bending to end rom without pain Target Visit 12 PT Problem 5 PT Problem #5 Impaired Functional Mobility PT Goal 1 Goal / Goal Update patient to tolerate laying in bed without pain or R LE paresthesia's patient to tolerate standing and walking for 30 minutes without more than 2/10 pain and without increased R LE paresthesia's patient to report no R LE paresthesia's at rest LEFS to display 30% or less functional deficits oswestry to display 20% or less functional deficits Target Visit 12
--- NOTE | 2024-09-18 10:12 | PTOPEVAL1 ---
Assessment and note entered by JT File, PT Evaluation Information Assessment Status Evaluation Diagnosis MPFS, low back pain, bilateral trochanteric bursitis ICD-10 Condition Codes (PT) Pain in low back M54.50,Pain in right hip M25.551, Pain in left hip M25.552 Other ICD-10 Condition Codes ( M79.18, M54.9, M70.61, M70.62, M47.816, M54.50, PT) G89.29 Subjective Information patient reports she has in general done well on her own, until as of late. she attempted some dry needling treatment with a chiropractor and some other injections from her MD. she reports she now has numbness and paresthesia's in the entire R LE. she reports sleeping in bed and leaning all the way back in her recliner increase her pain and symptoms. she reports she is able to tolerate laying in the recliner with some flexion of the back. she reports she got a abigail horse in her R LE that began a lot of her symptoms. she reports the R LE continues to feel it is asleep and tingly. Reported Pain Level Pain Score 5,7: Self Report Assessment PT Clinical Summary mrs. angel is a pleasant 73 yo woman who presents to skilled PT services for evaluation and treatment of lumbar pain and R radicular symptoms . she displays signs and symptoms consistent with lumbar facet arthropathy and DDD. she has decreased rom, pain, weakness of the hips, and paresthesia's in the R LE. continued skilled PT is indicated to improve her objective/functional deficits and return to her prior level functional activity performance/quality of life. Plan of Care Interventions Electrical Stimulation,Gait Training,Hot Pack/Cold Pack,Manual Therapy,Mechanical Traction,Neuro Re- education,Patient/Caregiver Education,Therapeutic Activities,Therapeutic Exercise,Other Other Interventions dry needling PT Services Indicated Yes Treatment Frequency and 3x weekly for 12 visits Duration These treatments will address the objective and functional deficits as defined above. The patient will be advanced safely and appropriately in order for the patient to progress towards his/her prior level of function. Additional exercises will be introduced and as well as a comprehensive home exercise program upon discharge, if needed, ?to ensure carryover of functional gains achieved in the clinic. This treatment plan has been reviewed and agreement upon by the patient.
--- NOTE | 2024-10-10 12:25 | OPREHPOC ---
Outpatient Therapy Plan of Care This is a Multidisciplinary Plan of Care that may contain components documented by all disciplines (PT, OT, and ST.) PT Problem 1 PT Problem #1 Knowledge Deficit PT Goal 1 Goal / Goal Update independent and compliant with HEP Target Visit 6 Progress Met PT Problem 2 PT Problem #2 Pain PT Goal 1 Goal / Goal Update patient to report 50% reduced pain level in the lower back and R LE Target Visit 12 Progress Met PT Problem 3 PT Problem #3 Impaired Strength PT Goal 1 Goal / Goal Update 4/5 bilateral hip strength or better overall 5/5 bilateral knee strength 4+/5 or better R ankle DF Target Visit 12 PT Problem 4 PT Problem #4 Impaired Range of Motion PT Goal 1 Goal / Goal Update patient to perform lumbar side bending to end rom without pain Target Visit 12 PT Problem 5 PT Problem #5 Impaired Functional Mobility PT Goal 1 Goal / Goal Update patient to tolerate laying in bed without pain or R LE paresthesia's patient to tolerate standing and walking for 30 minutes without more than 2/10 pain and without increased R LE paresthesia's patient to report no R LE paresthesia's at rest LEFS to display 30% or less functional deficits oswestry to display 20% or less functional deficits Target Visit 12
--- NOTE | 2024-10-10 12:26 | PTOPPROGNS ---
Assessment and note entered by JT File, PT Evaluation Information Assessment Status Progress Diagnosis MPFS, low back pain, bilateral trochanteric bursitis ICD-10 Condition Codes (PT) Pain in low back M54.50,Pain in right hip M25.551, Pain in left hip M25.552 Other ICD-10 Condition Codes ( M79.18, M54.9, M70.61, M70.62, M47.816, M54.50, PT) G89.29 Subjective Information patient reports she is better overall, but still has tingling down the R LE. she reports she was up a lot yesterday on her feet, but reports her pain is no more than a 1/10. Assessment PT Clinical Summary mrs. angel presents to skilled PT services for her 10th skilled PT visit for lumbar paresthesia's down the R LE. she reports decreased symptoms overall, but continued paresthesia's down the R LE , especially in prolonged lumbar extension position. continued skilled swing bed is indicated to focus on reduction of pain and symptoms further, and improve her strength and core stability to achieve goals. Plan of Care Interventions Electrical Stimulation,Gait Training,Hot Pack/Cold Pack,Manual Therapy,Mechanical Traction,Neuro Re- education,Patient/Caregiver Education,Therapeutic Activities,Therapeutic Exercise,Other Other Interventions dry needling PT Services Indicated Yes Treatment Frequency and continue per initial POC Duration These treatments will address the objective and functional deficits as defined above. The patient will be advanced safely and appropriately in order for the patient to progress towards his/her prior level of function. Additional exercises will be introduced and as well as a comprehensive home exercise program upon discharge, if needed, ?to ensure carryover of functional gains achieved in the clinic. This treatment plan has been reviewed and agreement upon by the patient.
--- NOTE | 2024-11-10 14:29 | OPREHPOC ---
Outpatient Therapy Plan of Care This is a Multidisciplinary Plan of Care that may contain components documented by all disciplines (PT, OT, and ST.) PT Problem 1 PT Problem #1 Knowledge Deficit PT Goal 1 Goal / Goal Update independent and compliant with HEP Target Visit 6 Progress Met PT Problem 2 PT Problem #2 Pain PT Goal 1 Goal / Goal Update patient to report 50% reduced pain level in the lower back and R LE Target Visit 12 Progress Met PT Problem 3 PT Problem #3 Impaired Strength PT Goal 1 Goal / Goal Update 4/5 bilateral hip strength or better overall 5/5 bilateral knee strength 4+/5 or better R ankle DF Target Visit 12 Progress Met PT Problem 4 PT Problem #4 Impaired Range of Motion PT Goal 1 Goal / Goal Update patient to perform lumbar side bending to end rom without pain Target Visit 12 Progress Met PT Problem 5 PT Problem #5 Impaired Functional Mobility PT Goal 1 Goal / Goal Update patient to tolerate laying in bed without pain or R LE paresthesia's. not met patient to tolerate standing and walking for 30 minutes without more than 2/10 pain and without increased R LE paresthesia's. partially met patient to report no R LE paresthesia's at rest. partially met LEFS to display 30% or less functional deficits. not met oswestry to display 20% or less functional deficits. not met Target Visit 12 Progress Partially Met
--- NOTE | 2024-11-10 14:29 | PTOPDC ---
Assessment and note entered by JT File, PT Evaluation Information Assessment Status Discharge Diagnosis MPFS, low back pain, bilateral trochanteric bursitis ICD-10 Condition Codes (PT) Pain in low back M54.50,Pain in right hip M25.551, Pain in left hip M25.552 Other ICD-10 Condition Codes ( M79.18, M54.9, M70.61, M70.62, M47.816, M54.50, PT) G89.29 Subjective Information patient reports she is better overall, but still has tingling down the R LE. she reports she has been compliant with her HEP at home since the start of skilled PT. she reports she is willing to follow up with her referring doctor and consider new options. she reports her pain is much lower, but the tingling in he leg is still noted with prolonged standing/walking, and laying flat in bed . Assessment PT Clinical Summary mrs. angel presents to skilled PT today having made progress towards all goals, and achievement or partial achievement of several. she continues to have the greatest issue with paresthesia's down the LE. she was educated in exercises and activities throughout skilled PT, along with modalities and dry needling, to reduce these symptoms. we have been unsuccessful at eliminating these symptoms, and thus patient would benefit from referral back to her PCP for consideration of other treatment options. she will continue with her HEP at home. Plan of Care PT Services Indicated Yes
== END 2024-10-15 20:00 | disposition home or self-care (01) ==
LOC: CHSPT 08:52
DX: M79.18 Myalgia, other site (principal); M54.9 Dorsalgia, unspecified; M70.61 Trochanteric bursitis, right hip; M70.62 Trochanteric bursitis, left hip; M47.816 Spondylosis without myelopathy or radiculopathy, lumbar region; M54.50 Low back pain, unspecified; G89.29 Other chronic pain
CPT/HCPCS: 97012; 97014; 97110; 97140; 97161; G0283

== ENCOUNTER 2024-11-10 09:30 | Outpatient (CLI) | payer MEDICARE, SELFPAY ==
--- OUTSIDE RECORDS SUMMARY | 2009-11-17 08:45 | XMS_ITS | Continuity of Care Document ---
Author Organization [facility] Address [address] [place] [address] [place] [address] Phone Care Team Providers Care Technical Lead Name Role Phone Cooper Akins Unavailable Unavailable Procedures Procedure Date Eye Exam, New Patient Refraction Advance Directives Directive Yes / No Effective Date File Name No Information Encounters Encounter Description Practice Location Reason(s) For Visit Diagnoses Date Provider Providers Copied on Encounter [facility], [id number], [place], [place], [id number], [place] tel:[phone] [facility] No Information [address]. [address] , [address], [place], [address], [place]. tel:[phone] Family History Family Member Type Diagnosis Age At Onset No Information Payers Payer name Insurance type Covered libertarian ID Authoriza tion(s) No Information Social History Type Description Quantity Date Captured Comments Sex Female Smoking Status No Information Chief Complaint And Reason For Visit No Information Reason For Referral Reason For Referral No Information History Of Present Illness Encounter Date Complaint History Of Prese nt Illness No Information Functional Status Date Functional Assessmen t No Information Instructions Date Instruction Additional Infor mation No Information Assessments Type Assessment Date No Information Patient Care Teams Name Effective Dates (start - stop) Status Members No Information
--- OUTSIDE RECORDS SUMMARY | 2023-11-26 05:10 | XMS_ITS ---
Author Organization [facility] Address [address] [place], [place] [id number] Care Team Providers Care Laser Printing Operator Name Role Phone CHARLI SUN Unavailable [phone] Griselda Pat Unavailable Unavailable REASON FOR VISIT *Tendonitis check Encounters Encounter Location Date Provider Diagnosis [facility] [address] [place], [place] [id number] 11/26/2023 CHARLI SUN Plan Of Treatment No Information Progress Notes * SHERRELL MADDOX ADOB:[birth year] (73 yo F)Acc No.[id number]:11/26/2023 Patient: Dulce BUNDYSHERRELL Sravanthi Provider: Ana Sun DPM :1950 A ge:72 Y S ex:Female Date:11/26/2023 Address:[address] Subjective: * Chief Complaints: * 1 . *Tendonitis check. * Medical History: Objective: * Vitals: Assessment: Plan: * Treatment: * Billing Information: * Visit Code: * Procedure Codes: * Electronic signature of CHARLI SUN DPM on 11/10/2024 at 10:25 AM CDT Sign off status: Pending * Provider: Ana Sun DPM Date: 11/26/2023 Generated for Printi ng/Faxing/eTransmitting on: 11/10/2024 10:25 AM CDT
--- OUTSIDE RECORDS SUMMARY | 2024-06-23 08:30 | XMS_ITS ---
Author Organization [facility] Address [address] [place], [place] [id number] Care Team Providers Care Urology Surgeon Name Role Phone CHARLI SUN Unavailable [phone] Griselda Pat Unavailable Unavailable REASON FOR VISIT right foot check with xrays Encounters Encounter Location Date Provider Diagnosis [facility] [address] [place], [place] [id number] 06/23/2024 CHARLI SUN Plan Of Treatment No Information Progress Notes * SHERRELL MADDOX ADOB:[birth year] (73 yo F)Acc No.[id number]:06/23/2024 Patient: Dulce BUNDYSHERRELL Provider: Ana Sun DPM :1950 A ge:73 Y S ex:Female Date:06/23/2024 Address[address] Subjective: * Chief Complaints: * 1 . Right foot check with xrays. * Medical History: Objective: * Vitals: Assessment: Plan: * Treatment: * Billing Information: * Visit Code: * Procedure Codes: * Electronic signature of CHARLI SUN DPM on 11/10/2024 at 10:24 AM CDT Sign off status: Pending * Provider: Ana Sun DPM Date: 06/23/2024 Generated for Printi ng/Faxing/eTransmitting on: 0 11/10/2024 10:24 AM CDT
--- NOTE | ~2024-11-10 | MM_ITS ---
EXAMINATION: MM screening arash BI w bita HISTORY: Screening TECHNIQUE: Craniocaudal and mediolateral oblique 3-D tomosynthesis images were obtained and synthetic 2-D images were generated. CAD analysis was submitted and interpreted. COMPARISON: 10/12/2022 BREAST PARENCHYMAL COMPOSITION: There are scattered areas of fibroglandular density. FINDINGS: There is no evidence of suspicious mass, calcification, or architectural distortion to suggest malignancy. There has been no suspicious interval change. IMPRESSION: 1. No mammographic evidence of malignancy. Recommend routine screening mammography in one year. BI-RADS Category 2: Benign finding(s) Reviewed, dictated and finalized at location Q. IMPRESSION: 1. No mammographic evidence of malignancy. Recommend routine screening mammogra phy in one year. BI-RADS Category 2: Benign finding(s)
--- OUTSIDE RECORDS SUMMARY | 2024-11-10 10:24 | XMS_ITS | Clinical Summary ---
Author Organization [facility] Address [facility] [place] [address] Care Team Providers Care Pole Peeler Name Role Phone Griselda Pat MD Primary Care Provider [phone] Allergies Active Allergy Reactions Criticality Noted Date Comments Erythromycin Shortness of Breath, GI Upset High 01/31/2019 Reaction: Short of breath, Stomach/GI Upset Indomethacin Shortness of Breath, GI Upset High 01/31/2019 Reaction: Short of breath, Stomach/GI Upset Medications ALPRAZolam (XANAX) 0.5 MG tablet 3 Active Ascorbic Acid 1000 MG Tab daily. Active carboxymethylcell ulose-hypromellos e (GENTEAL) 0.25-0.3 % Gel ophthalmic gel Apply 2 drops to eye. Active Cholecalciferol 50 MCG (2000 UT) Tab 2 (two) times daily. Active Cobalamin Combinations (VITAMIN P91-IGUZI ACID) 500-400 MCG Tab Acti ve EST [...] Information Value Date Recorded Sex Assigned at Female 06/24/2024 12:54 PM CDT Legal Sex Female 3:29 PM CDT Gender Identity Not on file Sexual Orientation Not on file Last Filed Vital Signs Vital Sign Reading Time Taken Comments Blood Pressure 127/73 06/24/2024 1:06 PM CDT Pulse 80 06/24/2024 1:06 PM CDT Temperature 36.8 C (98.3 F) 06/24/2024 1:06 PM CDT Respiratory Rate 18 06/24/2024 1:06 PM CDT Oxygen Saturation 100% 06/24/2024 1:06 PM CDT Inhaled Oxygen Concentration - - Weight 68 kg (150 lb) 06/24/2024 1:06 PM CDT Height 160 cm (5' 3) 06/24/2024 1:06 PM CDT Body Mass Index 26.57 06/24/2024 1:06 PM CDT Plan of Treatment Health Maintenance Due Date Last Done Comments Colorectal Cancer Screening Colonoscopy (10 Years) 1950 Hepatitis C 11/29/1967 Mammogram Screening 1989 Annual Medicare Wellness Visit 2014 Dexa Scan (General) 2014 Pneumococcal Vaccine: 50+ Years (2 of 2 - PCV) 11/29/2016 11/30/2015, 12/04/2005 COVID-19 Vaccine ( season) 2024 09/16/2021, 01/13/2021, 05/17/2020, Additional history exists RSV Immunization or 60+ Years (1 - [...] complete this topic Insurance [employer] Care Teams Pole Peeler Relationship Specialty Start Date End Date Griselda Pat MD [address] [place] [address] PCP - General FAMILY PRACTICE 06/03/22
--- OUTSIDE RECORDS SUMMARY | 2024-11-10 10:25 | XMS_ITS | Clinical Summary ---
Author Organization [facility] Address [address] [place] [id number] Care Team Providers Care Internet Marketing Executive Name Role Phone Griselda Pat MD Primary Care Provider [phone] Allergies Active Allergy Reactions Criticality Noted Date Comments Erythromycin Shortness of breath,Stomach upset High 01/31/2019 Reaction: Short of breath, Stomach/GI Upset Other reaction(s): GI Upset Reaction: Short of breath, Stomach/GI Upset Indomethacin Shortness of breath,Stomach upset High 01/31/2019 Reaction: Short of breath, Stomach/GI Upset Other reaction(s): GI Upset Reaction: Short of breath, Stomach/GI Upset Medications inFLIXimab (REMICADE) 100 mg injection Infuse 30 mL (300 mg total) into a venous catheter every 8 (eight) weeks Active ALPRAZolam (XANAX) 0.5 mg tablet TAKE 1 TABLET AT BEDTIME. 06/05/19 08 Active estrogens-methyl TESTOSTERone (EEMT,COVARYX) 0.625-1.25 mg per tabletIndication s:Vasomotor Symptoms associated with Menopause daily. 06/05/19 08 Active OMEGA 4-CHE-XCZ-FISH OIL ORAL 2 capsules daily Active carboxymethylcel l-hypromellose 0.25-0.3 % drops, liquid gel Administer 2 drops into both eyes daily Active levothyroxine (SYNTHROID, LEVOTHROID) 75 mcg tablet daily. 05/03/19 08 Active diclofenac sodium (VOLTAREN) 1 % gel Place on the skin 12/15/19 11 Active cholecalciferol (VITAMIN D-3) 2,000 unit tablet 2 (two) times a day Active ascorbic acid (VITAMIN C) 1,000 mg tablet daily. Acti ve multivitamin, stress formula tablet daily. Active DM/p-ephed/aceta minoph/doxylam (NYQUIL D ORAL) Acti ve triamcinolone (NASACORT) 55 mcg nasal inhaler Administer 2 sprays into affected nostril(s) daily 01/01/20 08 Active methocarbamol (ROBAXIN) 500 mg tablet 08/24/19 17 Active lysine 500 mg tablet 2 times daily. Active betamethasone dipropionate (DIPROLENE) 0.05 % cream 08/31/19 18 Active clotrimazole-bet amethasone (LOTRISONE) cream 11/23/19 18 Active naftifine HCl (NAFTIN TOP) Apply topically as needed Active clobetasol (TEMOVATE) 0.05 % cream Apply topically 2 (two) times a day 30 g 3 08/22/19 19 Active fluticasone propionate (CUTIVATE) 0.05 % creamIndications :Rash Apply topically daily To irritated areas on hands up to twice a day. 30 g 1 10/22/19 19 Active vitamin P75-eqxui acid 0.5-1 mg tablet Take by mouth Active pimecrolimus (ELIDEL) 1 % cream 08/25/19 21 Active sulfamethoxazole -trimethoprim (BACTRIM DS) 800-160 mg per tablet 03/08/19 22 Active Premarin vaginal cream 01/31/20 22 Active levoFLOXacin (LEVAQUIN) 750 mg tablet 12/27/19 22 Active omeprazole (PriLOSEC) 20 mg capsule Take 1 capsule (20 mg total) by mouth daily 07/27/19 23 Active methotrexate 2.5 mg tabletIndication s:Rheumatoid arthritis involving multiple sites, unspecified whether rheumatoid factor present (HCC) TAKE 3 TABLETS EVERY 7 DAYS 36 tablet 1 05/27/19 25 Active folic acid (FOLVITE) 1 mg tabletIndication s:Rheumatoid arthritis involving multiple sites, unspecified whether rheumatoid factor present (HCC) Take 2 tablets by mouth once daily 180 tablet 1 10/15/19 25 Active predniSONE (DELTASONE) 5 mg tabletIndication s:Rheumatoid arthritis involving multiple sites, unspecified whether rheumatoid factor present (HCC) Take 1 tablet by mouth once daily 90 tablet 1 10/15/19 25 Active pregabalin (LYRICA) 75 mg capsule Take one tablet QHS x 7 days then take one tablet BID 60 capsule 3 11/07/19 25 Active folic acid (FOLVITE) 1 mg tabletIndication s:Rheumatoid arthritis involving multiple sites, unspecified whether rheumatoid factor present (HCC) Take 2 tablets by mouth once daily 180 tablet 1 04/24/19 25 025 Discontinued predniSONE (DELTASONE) 5 mg tabletIndication s:Rheumatoid arthritis involving multiple sites, unspecified whether rheumatoid factor present (HCC) Take 1 tablet by mouth once daily 90 tablet 1 04/24/19 025 Discontinued Active Problems Problem Noted Date Diagnosed Date Trochanteric bursitis, left hip 08/07/2024 Chronic cough 05/16/2022 Assessment & Plan (05/16/2022 [...] continue taking them. Drug-induced systemic lupus erythematosus 2017 Rheumatoid arthritis 07/06/2017 Atopic eczema 08/30/2016 Metatarsalgia 07/05/2015 Stress fracture of metatarsal bone 07/05/2015 Pain in pelvis 03/25/2015 Chronic pain in right foot 09/28/2014 Avitaminosis 09/28/2014 Chronic infection of sinus 03/25/2010 Encounters Date Type Department Care Team Description 11/06/2024 10:55 AM CDT - 11/06/2024 11:59 PM CDT Hospital Encounter [facility] [address] [place] [id number] Katlyn Sarmiento MD Lumbar facet arthropathy; Chronic bilateral low back pain without sciatica Discharge Disposition: Discharge to home or self care 11/06/2024 10:45 AM CDT Office Visit [facility] Orthopaedic Surgery [address] [place] [address] [facility] 6[address] [place] [address] [place] [address] Katlyn Sarmiento MD Lumbar facet arthropathy (Primary Dx); Chronic bilateral low back pain with right-sided sciatica; Piriformis muscle pain 10/30/2024 9:00 AM CDT Infusion [facility] [address] [place] [address] Rheumatoid arthritis, involving unspecified site, unspecified whether rheumatoid factor present (HCC) (Primary Dx) 09/12/2024 Orders Only [facility] Orthopaedic Surgery [address] [facility] 2[address] [place] [phone] Katlyn Sarmiento MD Myofascial pain syndrome (Primary Dx); Spine pain; Greater trochanteric bursitis of both hips; Lumbar facet arthropathy; Chronic bilateral low back pain without sciatica 09/04/2024 2:50 PM CDT Lab [facility] [address] [place] [phone] Rheumatoid arthritis involving multiple sites, unspecified whether rheumatoid factor present (HCC); Encounter for long-term (current) use of high-risk medication 09/04/2024 9:00 AM CDT Infusion [facility] [address] [facility] [address] [place] [phone] Rheumatoid arthritis, involving unspecified site, unspecified whether rheumatoid factor present (HCC) (Primary Dx) 09/04/2024 Orders Only [facility] Rheumatology [address] [facility] 5th [place] [address] [place] [address] Garima Lund MD Rheumatoid arthritis involving multiple sites, unspecified whether rheumatoid factor present (HCC) (Primary Dx); Encounter for long-term (current) use of high-risk medication 08/25/2024 2:30 PM CDT Office Visit [facility] Orthopaedic Surgery [address] [facility] 2nd [address] [place] [address] Bharti Sorto NP Myofascial pain syndrome (Primary Dx) from Last 3 Months Immunizations Immunization Administration Dates Next Due Influenza, Trivalent, Preservative [...] cord nodules Rheumatoid arthritis (HCC) Autoimmune disease GERD (gastroesophageal reflux disease) Family History Medical [...] of Binge Drinking Not on file 04/27 Hunger Vital Sign Answer Date Recorded Within the past 12 months, y ou worried that your food would run out before you got the money to buy more. Never true 10/31/19 25 Within the past 12 months, t he food you bought just didn't last and you didn't have money to get more. Never true 10/30/2024 Personal Safety Answer Date Recorded Have you ever been in or are you currently in a harmful physical or emotional relationship or is someone making you feel afraid or unsafe? Denies 10/30/2024 Comments Unknown Sex and Gender Information Value Date Recorded Sex Assigned at Not on file Legal Sex Female 10:27 PM HANGER Gender Identity Female 10/31/2017 1:36 PM CDT Sexual Orientation Not on file Occupation Industry Job Start Date Job End Date retired Not on file Not on file Not on file Obstetrics History Last Filed Vital Signs Vital Sign Reading Time Taken Comments Blood Pressure 133/65 10/30/2024 11:37 AM CDT Pulse 61 10/30/2024 11:38 AM CDT Temperature 36 C (96.8 F) 10/30/2024 8:37 AM CDT Respiratory Rate 16 10/30/2024 8:37 AM CDT Oxygen Saturation 97% 10/30/2024 11: 38 AM CDT Inhaled Oxygen Concentration - - Weight 69.7 kg (153 lb 11.2 oz) 10/30/2024 8:37 AM CDT Height 160 cm (5' 3) 10/30/2024 8:37 AM CDT Body Mass Index 27.23 10/30/2024 8:37 AM CDT Plan of Treatment Health Maintenance Due Date Last Done Comments Breast Cancer Screening-Mammogram 1950 Colon Cancer Screening-Colonoscopy 1950 Depression Screening 1950 Fall Risk Assessment 1950 Hepatitis B Screening 11/29/1967 Well Visit 65+ 2014 Pneumococcal vaccine 65+ (3 of 3 - PCV) 11/29/2016 1 , 12/04/2005 Osteoporosis Screening-Bone Density Scan 09/26/2017 09/27/2015 Influenza Vaccine (#1) 2024 12/14/2020, 2014 DTaP/Tdap/Td Vaccine (2 - Td or Tdap) 11/29/202505/2015, 10/09/2002 Zoster Vaccine Completed 07/25/2018, 02/06/2018 Hepatitis C Screening Completed 07/27/2021 Procedures Procedure Name Priority Date/Time Associated Diagnosis Comments XR SPINE LUMBAR COMPLETE 4 OR MORE VIEWS Schedule Routine, Read Routine (OP Routine) 11/06/2024 11:07 AM CDT Lumbar facet arthropathy Chronic bilateral low back pain without sciatica EGFR Routine 09/04/2024 12:16 PM CDT Rheumatoid arthritis involving multiple sites, unspecified whether rheumatoid factor present (HCC) Encounter for long-term (current) use of high-risk medication DIFFERENTIAL AUTO Routine 09/04/2024 12: 16 PM CDT Rheumatoid arthritis involving multiple sites, unspecified whether rheumatoid factor present (HCC) Encounter for long-term (current) use of high-risk medication CBC WITH AUTO DIFFERENTIAL Routine 09/04/2024 12:16 PM CDT Rheumatoid arthritis involving multiple sites, unspecified whether rheumatoid factor present (HCC) Encounter for long-term (current) use of high-risk medication COMPREHENSIVE METABOLIC PANEL Routine 09/04/2024 12:16 PM CDT Rheumatoid arthritis involving multiple sites, unspecified whether rheumatoid factor present (HCC) Encounter for long-term (current) use of high-risk medication [place] INJECTION SINGLE/SUPERVISOR SHUTTLE PREPARATION TRIGGER POINT 3/> MUSCLES Routine 08/25/2024 2:30 PM CDT Myofascial pain syndrome HEPATITIS C ANTIBODY Routine 07/27/2021 2:49 PM CDT Rheumatoid arthritis involving multiple sites, unspecified whether rheumatoid factor present (HCC) Drug-induced systemic lupus erythematosus, unspecified organ involvement status BONE MINERAL DENSITY 09/27/2015 from Last 3 Months or Most Recently Relevant to Health Maintenance Results * X-ray lumbar spine complete 4+ views (11/06/2024 11:07 AM CDT) Anatomical Region Laterality Modality Spine N/A Computed Radiogr aphy 11/06/2024 12:0 4 PM CDT Impressions 11/06/2024 12:04 PM CDT 1. Progressed multilevel degenerative disc disease of the lumbar spine, greatest and moderate to severe at L5-S1, with unchanged static grade 1 anterolisthesis of L3 on L4. Electronically signed by: Jose Sultana MD Narrative 11/06/2024 12:04 PM CDT EXAMINATION: XR SPINE LUMBAR 4 OR MORE VIEWS HISTORY: Low back pain FINDINGS: Comparison is made with radiographs dated 05/16/2021. Unchanged grade 1 anterolisthesis of L3 on L4, which does not change with flexion or extension maneuvers. No acute displaced fracture. Vertebral body heights are maintained. There is progressed multilevel degenerative disc disease of the lumbar spine, greatest and moderate to severe at L5-S1, with lower lumbar facet arthropathy. Procedure Note Jose Sultana MD - 11/06/2024 EXAMINATION: XR SPINE LUMBAR 4 OR MORE VIEWS HISTORY: Low back pain FINDINGS: Comparison is made with radiographs dated 05/16/2021. Unchanged grade 1 anterolisthesis of L3 on L4, which does not change with flexion or extension maneuvers. No acute displaced fracture. Vertebral body heights are maintained. There is progressed multilevel degenerative disc disease of the lumbar spine, greatest and moderate to severe at L5-S1, with lower lumbar facet arthropathy. IMPRESSION: 1. Progressed multilevel degenerative disc disease of the lumbar spine, greatest and moderate to severe at L5-S1, with unchanged static grade 1 anterolisthesis of L3 on L4. Electronically signed by: Jose Sultana MD Katlyn Sarmiento MD IMG XR PROCEDURES Final Re sult * eGFR (09/04/2024 12:16 PM CDT) eGFR 69 >=60 mL/min/1. 73 m2 Comment: Interpretive Data Reference Interval Normal >/= 90 mL/min/1.73m2 Mildly decreased* 60 - 89 mL/min/1.73m2 Mildly to moderately decreased 45 - 59 mL/min/1.73m2 Moderately to severely decreased 30 - 44 mL/min/1.73m2 Severely decreased 15 - 29 mL/min/1.73m2 Kidney Failure < 15 mL/min/1.73m2 *Relative to young adult level Estimated glomerular filtration rate is determined by the 2020 CKD-EPI equation recommended by the National Kidney Foundation (A Unifying Approach to GFR Estimation: Recommendations of the NKF-ASK Task Force on Reassessing the Inclusion of Race in Diagnosing Kidney Disease, JASN 2020). The CKD-EPI equation should not be used for patients with unstable renal function and has not been validated in children and those over 70. Current interpretive data was last reviewed 2020. Blood 09/04/2024 12:1 6 PM CDT 09/04/2024 12:42 PM CDT us Garima Lund MD LAB BLOOD ORDERABLES Final Result [facility] [place] [address] * Differential, auto (09/04/2024 12:16 PM CDT) Pathologist [facility] Neutrophil abs 4.83 1.50 - 6.50 K/cumm Imm gran abs 0.02 0.00 - 0.10 K/cumm [facility] Lymphocyte abs 1.24 0.80 - 3.30 K/cumm [facility] Monocyte abs 0.32 0.20 - 0.80 K/cumm [facility] Eosinophil abs 0.03 0.00 - 0.50 K/cumm [facility] Basophil abs 0.02 0.00 - 0.10 K/cumm [facility] Neutrophil pct 74.7 % [facility] Comment: Interpretive Data Percent cell count reference ranges are not reported, since discordance with absolute values may lead to misinterpretation of CBC data. Current Interpretive Data was last revised on 2017. Imm gran pct 0.3 % [facility] Comment: Interpretive Data Percent cell count reference ranges are not reported, since discordance with absolute values may lead to misinterpretation of CBC data. Current Interpretive Data was last revised on 2017. Lymphocyte pct 19.2 % [facility] Comment: Interpretive Data Percent cell count reference ranges are not reported, since discordance with absolute values may lead to misinterpretation of CBC data. Current Interpretive Data was last revised on 2017. Monocyte pct 5.0 % [facility] Comment: Interpretive Data Percent cell count reference ranges are not reported, since discordance with absolute values may lead to misinterpretation of CBC data. Current Interpretive Data was last revised on 2017. Eosinophil pct 0.5 % [facility] Comment: Interpretive Data Percent cell count reference ranges are not reported, since discordance with absolute values may lead to misinterpretation of CBC data. Current Interpretive Data was last revised on 2017. Basophil pct 0.3 % [facility] Comment: Interpretive Data Percent cell count reference ranges are not reported, since discordance with absolute values may lead to misinterpretation of CBC data. Current Interpretive Data was last revised on 2017. Blood 09/04/2024 12:1 6 PM CDT 09/04/2024 12:37 PM CDT us Garima Lund MD LAB BLOOD ORDERABLES Final Result [facility] Department [place] [address] * (ABNORMAL) CBC with auto differential (09/04/2024 12:16 PM CDT) WBC 6.46 3.80 - 9.90 K/cumm Hgb 11.9 11.9 - 15.5 g/dL [facility] Hct 35.0(L) 35.6 - 45.5 % [facility] Plt 221 150 - 400 K/cumm [facility] MPV 9.8 9.1 - 12.3 fL [facility] RBC 3.58(L) 3.90 - 5.20 M/cumm [facility] MCV 97.8(H) 81.3 - 96.4 fL [facility] MCH 33.2 27.1 - 33.3 pg [facility] MCHC 34.0 32.3 - 35.7 g/dL [facility] RDW CV 13.6 11.1 - 14.9 % [facility] RDW SD 49.1(H) 35.7 - 48.1 fL [facility] NRBC abs 0.00 0.00 - 0.01 K/cumm [facility] Blood 09/04/2024 12:1 6 PM CDT 09/04/2024 12:37 PM CDT Garima Lund MD LAB BLOOD ORDERABLES Final Result [facility] [place] [address] * Comprehensive metabolic panel (09/04/2024 12:16 PM CDT) Sodium 137 135 - 145 mmol/L Potassium, pl 4.6 3.3 - 4.9 mmol/L [facility] Chloride 103 97 - 110 mmol/L [facility] CO2 27 22 - 32 mmol/L [facility] Anion gap 7 2 - 15 mmol/L [facility] BUN 16 6 - 25 mg/dL [facility] Creatinine 0.88 0.60 - 1.10 mg/dL [facility] Glucose 96 70 - 199 mg/dL [facility] Comment: Interpretive Data Fasting glucose >/= 126 mg/dl is diagnostic for diabetes. Fasting is defined as no caloric intake for at least 8 hours. Fasting glucose between 100 mg/dl to 125 mg/dl is diagnostic of prediabetes. In a patient with classic symptoms of hyperglycemia or hyperglycemic crisis, a random glucose >/= 200 mg/dl is diagnostic for diabetes. In the absence of unequivocal hyperglycemia, results should be confirmed by repeat testing. The classification and Diagnosis of Diabetes Diabetes Care 202; 46: S19-S40. Current interpretive data was last revised 2022. Calcium 9.2 8.5 - 10.3 mg/dL [facility] Bilirubin, total 0.3 0.1 - 1.2 mg/dL [facility] Protein, pl 7.3 6.5 - 8.5 g/dL [facility] Albumin 4.0 3.5 - 5.0 g/dL [facility] Alk phos 69 40 - 130 Units/L [facility] ALT 18 7 - 45 Units/L [facility] AST 27 10 - 45 Units/L [facility] Blood 09/04/2024 12:1 6 PM CDT 09/04/2024 12:37 PM CDT Garima Lund MD LAB BLOOD ORDERABLES Final Result [facility] [place] [address] * [place] INJECTION SINGLE/SUPERVISOR SHUTTLE PREPARATION TRIGGER POINT 3/> MUSCLES (08/25/2024 2:30 PM CDT) Narrative Bharti Sorto NP - 08/25/2024 2:30 PM CDT Bharti Sorto NP 08/25/2024 3:09 PM Trigger Point Injection Performed by: Bharti Sorto NP Authorized by: Bharti Sorto NP Consent Given by: Patient Site marked: the procedure site was marked Timeout: prior to procedure the correct patient, procedure, and site was verified Consent obtained:: Verbal Risks discussed, including, but not limited to:: Pain and infection Alternatives discussed:: No treatment and alternative treatment Site/side marked: Yes Indications: Pain and myalgia Location: L quadratus lumborum, R quadratus lumborum, Other, L lumbar paraspinal and R lumbar paraspinal Other:: Bilateral BL, RF, TFL Local anesthetic: Ethyl chloride spray Ultrasound guidance: No Needle size: 25 G Number of muscles: 3 or more Medications: 10 mL BUPivacaine HCl 0.25 % (2.5 mg/mL); 5 mL lidocaine 10 mg/mL (1 %) Patient tolerance: Patient tolerated the procedure well with no immediate complications [facility] Orthopedic Surgery Physical Medicine and Rehabilitation In collaboration with Dr. Sarmiento Portions of this note were dictated using M*Modal Fluency Direct speech recognition software. us Bharti Sorto DRYING MACHINE OPERATOR IN CLINIC/BEDSIDE ORDERAB LES Final Result * Hepatitis C antibody (07/27/2021 2:49 PM CDT) Hep C Ab Nonreactive Nonreactive [facility] Comment:Antibodies to HCV no t detected. Does NOT exclude the possibility of recent exposure to HCV. Blood 07/27/2021 2:49 PM CDT 07/27/2021 5:08 PM CDT Garima Lund MD LAB MICROBIOLOGY - GENERAL ORDERABLES Edited Result - Final [facility] [place] [address] * BONE MINERAL DENSITY (09/27/2015) Anatomical Region Laterality Modality Radiographic Mary ging Narrative 09/27/2015 Ordered by an unspecified provider. Historical Provider IMG DXA PROCEDURES Final Result from Last 3 Months or Most Recently Relevant to Health Maintenance Insurance [facility] MEDICARE AET MEDICARE AETNA MEDICARE Care Teams Internet Marketing Executive Relationship Specialty Start Date End Date Grieslda Pat MD PCP - General Family Medicine 11/08/20
--- OUTSIDE RECORDS SUMMARY | 2024-11-10 10:25 | XMS_ITS | Encounter Summary ---
Author Organization [facility] Address [address] [facility] [address] Phone Care Team Providers Care Ict Customer Support Officer Name Role Phone Paula Cross MD Primary Care Provider [phone] Paula Cross MD Unavailable [phone] Carl Darby Primary Care Provider [phone] Griselda Pat MD Primary Care Provider [phone] Encounter Details Date Type Department Care Team [...] on file Legal Sex Female 10:27 PM SINGING MESSENGER Gender Identity Female 10/31/2017 1:36 PM CDT [...] on filedocumented in this encounter Care Teams Ict Customer Support Officer Relationship Specialty Start Date End Date Paula Cross MD PCP - General 01/31/19 04/19/20 Carl Darby PA [address] [place] [address] PCP - General Physician Ticket Collector Or Usher 04/20/20 11/07/20 Griselda Pat MD [address] [place] [address] PCP - General Family Medicine 11/08/20 Paula Cross MD Family Practice 01/31/19 01/09/21 documented as of this encounter
--- OUTSIDE RECORDS SUMMARY | 2024-11-10 10:25 | XMS_ITS | Encounter Summary ---
Author Organization [facility] Address [address] [facility] [place] [address] Care Team Providers Care Kitchen Bath Designer Name Role Phone Unavailable Primary Care Provider Unavailabl e Encounter Details Date Type Department Care Team (Late st Contact Info) Description 11/20/2019 Lab Requisition [facility] DermPath Lab [address] [facility], [place] [id number] Angelica Hall MD [address] [facility] 3 [place] [address] Social History Tobacco Use Types Packs/Day Years Used Date Smoking Tobacco: Never Assessed Comments Unknown Sex and Gender Information Value Date Recorded Sex Assigned at Not on file Legal Sex Female 5:56 PM RETIREMENT CONSULTANT Gender Identity Not on file Sexual Orientation Not on file documented as of this encounter Plan of Treatment Not on file documented as of this encounter Procedures Procedure Name Priority Date/Time Associated Diagnosis Comments DERMATOPATHOLOGY Routine 11/19/2019 12:0 0 AM CDT documented in this encounter Results * DERMATOPATHOLOGY (11/19/2019 12:00 AM CDT) Case Report Dermatopathology Report Case: [id number] Authorizing Provider: Angelica Hall MD Collected: 11/19/2019 12:00 AM Ordering Location: [facility] DermPath Lab Received: 11/20/2019 10:02 AM Pathologist: Tracey Cash MD Specimens: A) - Skin, left upper arm B) - Skin, left thigh 0 5:10 PM CDT DERMATOPATHOLOGY LABORATORY Final Diagnosis Specimen A. 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 [place] scaly plaques at arms, chest, ad upper neck/back. Hx of RA reticulated plaques. 0 5:10 PM CDT DERMATOPATHOLOGY LABORATORY Gross Description Specimen A: Received is one formalin filled container labeled with the patient's name and designated left upper arm. The specimen consists of a punch measuring [id number], bisected. Jar 0. Specimen B: Received is one formalin filled container labeled with the patient's name and designated left thigh. The specimen consists of a shave measuring [id number], bisected. Jar 0. 0 5:10 PM CDT [...] characteristic determined by the Dermatopathology Laboratory at [facility], directed by Dr. Lizeth Hernandes. These tests need not be, and therefore are not, approved by the [place] Food and Drug Administration. The tests are used for clinical purposes. Billing Codes Specimen Charges Stain Charges 06939 38260 1 1 08236 95143 38902 14277 1 1 1 1 0 5:10 PM CDT DERMATOPATHOLOGY LABORATORY Embedded Images 0 5:10 PM CDT DERMATOPATHOLOGY LABORATORY Pathology/Cytology TISSUE SPECIMEN FROM SKIN / Unknown 11/19/2019 11/20/2019 10:02 AM CDT Miscellaneous samples (specimen) TISSUE SPECIMEN FROM SKIN / Unknown 11/19/2019 11/20/2019 10:02 AM CDT Angelica Hall MD LAB - PATHOLOGY/CYTOLOGY ORD ERABLES Final Result DERMATOPATHOLOGY LABORATORY [facility] - Department of Dermatology [facility] Specialized Medicine [address] [place] [address], [address] [phone] documented in this encounter Visit Diagnoses Not on filedocumented in this encounter
--- OUTSIDE RECORDS SUMMARY | 2024-11-10 10:25 | XMS_ITS | Patient Health Record ---
Author Organization [facility] Address [address] [place], [place] [address] Care Team Providers Care Bilingual Medical Receptionist Name Role Phone CHARLI SUN Unavailable [phone] Nabil Pata Unavailable Unavailable Allergies Allergen (clinical drug ingredient) Drug/Non Drug Allergy documented on EMR Reaction Allergy Type Onset Date Status erythromycin Erythromycin Base Unknown Drug Allergy 2016 active indomethacin Indocin Unknown Drug Allergy 04/05/2016 act glenda Reason For Referral No Information Medications Medication SIG (Take, Route, Frequency, Duration) Notes Start Date End Date Status predniSONE 1 MG Oral Tablet ORAL prednisone 1 MG Oral TabletOriginal Medicationprednisone 1 MG Oral Tablet *Reorder from [employer] for eRx and Interaction Alerts* 04/05/19 17 Active hypromellose 3 MG/ML Ophthalmic Solution hypromellose 3 MG/ML Ophthalmic SolutionOriginal Medicationhypromellose 3 MG/ML Ophthalmic Solution *Reorder from [employer] for eRx and Interaction Alerts* 04/05/19 17 Active Naproxen 250 MG Oral Tablet ORAL naproxen 250 MG Oral TabletOriginal Medicationnaproxen 250 MG Oral Tablet *Reorder from [employer] for eRx and Interaction Alerts* 04/05/19 17 Active estrogens, esterified (SNF) 1.25 MG / methyltestosterone 2.5 MG Oral Tablet ORAL estrogens, esterified (SNF) 1.25 MG / methyltestosterone 2.5 MG Oral TabletOriginal Medicationestrogens, esterified (SNF) 1.25 MG / methyltestosterone 2.5 MG Oral Tablet *Reorder from [employer] for eRx and Inter 04/05/19 17 Active Lysine 1000 MG Oral Tablet ORAL lysine 1000 MG Oral TabletOriginal Medicationlysine 1000 MG Oral Tablet *Reorder from [employer] for eRx and Interaction Alerts* 04/05/19 17 Active clobetasol propionate 0.5 MG/ML Topical Lotion CUTANEOUS clobetasol propionate 0.5 MG/ML Topical LotionOriginal Medicationclobetasol propionate 0.5 MG/ML Topical Lotion *Reorder from [employer]are[employer] for eRx and Interaction Alerts* 04/05/19 17 Active cholecalciferol 0.01 MG Oral Capsule ORAL cholecalciferol 0.01 MG Oral CapsuleOriginal Medicationcholecalciferol 0.01 MG Oral Capsule *Reorder from [employer] for eRx and Interaction Alerts* 04/05/19 17 Active Methotrexate 2.5 MG Oral Tablet ORAL methotrexate 2.5 MG Oral TabletOriginal Medicationmethotrexate 2.5 MG Oral Tablet *Reorder from [employer] for eRx and Interaction Alerts* 04/05/19 17 Active esomeprazole 40 MG Delayed Release Oral Capsule [Nexium] ORAL esomeprazole 40 MG Delayed Release Oral Capsule [Nexium]Original Medicationesomeprazole 40 MG Delayed Release Oral Capsule [Nexium] *Reorder from [employer] for eRx and Interaction Alerts* 04/05/19 17 Active Ascorbic Acid 100 MG Oral Tablet ORAL ascorbic acid 100 MG Oral TabletOriginal Medicationascorbic acid 100 MG Oral Tablet *Reorder from [employer] for eRx and Interaction Alerts* 04/05/19 17 Active diclofenac sodium 0.01 MG/MG Topical Gel [Voltaren] CUTANEOUS diclofenac sodium 0.01 MG/MG Topical Gel [Voltaren]Original Medicationdiclofenac sodium 0.01 MG/MG Topical Gel [Voltaren] *Reorder from [employer] for eRx and Interaction Alerts* 04/05/19 17 Active Folic Acid 20 MG Oral Capsule ORAL folic acid 20 MG Oral CapsuleOriginal Medicationfolic acid 20 MG Oral Capsule *Reorder from [employer] for eRx and Interaction Alerts* 04/05/19 17 Active naftifine hydrochloride 20 MG/ML Topical Cream [Naftin] CUTANEOUS naftifine hydrochloride 20 MG/ML Topical Cream [Naftin]Original Medicationnaftifine hydrochloride 20 MG/ML Topical Cream [Naftin] *Reorder from [facility] for eRx and Interaction Alerts* 04/05/19 17 Active Simethicone 180 MG Oral Capsule ORAL simethicone 180 MG Oral CapsuleOriginal Medicationsimethicone 180 MG Oral Capsule *Reorder from [facility] for eRx and Interaction Alerts* 04/05/19 17 Active levothyroxine sodium 0.1 MG Oral Tablet [Synthroid] ORAL levothyroxine sodium 0.1 MG Oral Tablet [Synthroid]Original Medicationlevothyroxine sodium 0.1 MG Oral Tablet [Synthroid] *Reorder from [facility] for eRx and Interaction Alerts* 04/05/19 17 Active alprazolam 0.5 MG Oral Tablet [Xanax] ORAL alprazolam 0.5 MG Oral Tablet [Xanax]Original Medicationalprazolam 0.5 MG Oral Tablet [Xanax] *Reorder from [facility] for eRx and Interaction Alerts* 04/05/19 17 Active 12 HR guaifenesin 1200 MG Extended Release Oral Tablet [Mucinex] ORAL 12 HR guaifenesin 1200 MG Extended Release Oral Tablet [Mucinex]Original Tglgknwjxk12 HR guaifenesin 1200 MG Extended Release Oral Tablet [Mucinex] *Reorder from [facility] for eRx and Interaction Alerts* 04/05/19 17 Active triamcinolone acetonide 0.055 MG/ACTUAT Metered Dose Nasal [place] [Nasacort] triamcinolone acetonide 0.055 MG/ACTUAT Metered Dose Nasal [place] [Nasacort]Original Medicationtriamcinolone acetonide 0.055 MG/ACTUAT Metered Dose Nasal [place] [Nasacort] *Reorder from [facility] for eRx and Inter 04/05/19 17 Active infliximab 100 MG Injection [Remicade] INTRAVENOUS infliximab 100 MG Injection [Remicade]Original Medicationinfliximab 100 MG Injection [Remicade] *Reorder from [facility] for eRx and Interaction Alerts* 04/05/19 17 Active Vital Signs Height-cm 160.02 cm 06/09/2024 Weight-kg 68.49 kg 06/09/2024 Height 63.00 in 06/09/2024 Weight 151 lbs 06/09/2024 BMI 26.75 kg/m2 06/09/2024 Encounters Encounter Location Date Provider Diagnosis [facility] [id number] [place], [place] [id number] 11/12/2023 CHARLI CORINNE Peroneal tendinitis, right leg M76.71 ; Peroneal tendinitis, left leg M76.72 ; Tinea pedis B35.3 ; Pain in right foot M79.671 and Left foot pain M79.672 [facility] [address] [place] [id number] 06/09/2024 CHARLI CORINNE Stress fracture, right foot, initial encounter for fracture M84.374A ; Metatarsalgia, right foot M77.41 ; Metatarsalgia, left foot M77.42 ; Acquired keratosis [keratoderma] palmaris et plantaris L85.1 ; Tinea pedis B35.3 and Pain in right foot M79.671 Assessments Encounter Date Diagnosis (ICD Code) Assessment Notes Treatment Notes Treatment Clinical Notes Section Notes 11/12/2023 Peroneal tendinitis, right leg (ICD-10 - M76.71) Peroneal Tendonitis: I discussed anti-inflammatory treatment options and various means of immobilization with the patient. I educated the patient on icing and stretching, supportive shoegear, and the use of orthotic devices and bracing. I explained that the lumps are normal and just her 5th metatarsal base. Her shoes have a plastic heel stabilizier and it hits against her 5th metatarsal base. I ground down the plastic to this area and the patient noted marked improvement. Recommend voltaren gel. Continue custom orthotics 11/12/2023 Peroneal tendinitis, left leg (ICD-10 - M76.72) 06/09/2024 Metatarsalgia, right foot (ICD-10 - M77.41) Metatarsalgia: I discussed anti-inflammatory treatment options and various means of immobilization with the patient. I educated the patient on icing and stretching, supportive shoegear, and the use of orthotic devices and bracing. I added padding to her custom orthotics (she will get new ones in a few days) 06/09/2024 Stress fracture, right foot, initial encounter for fracture (ICD-10 - M84.374A) Stress Fracture: I discussed with the patient the nature and etiology of stress fractures. I discussed various treatment options consisting of immobilization, reducing activity and rest. I also discussed the use of orthotics to help prevent recurrence. Continue CAM boot (patient already has one) until new orthotics arrive 06/09/2024 Metatarsalgia, left foot (ICD-10 - M77.42) 11/12/2023 Tinea pedis (ICD-10 - B35.3) 06/09/2024 Acquired keratosis [keratoderma] palmaris et plantaris (ICD-10 - L85.1) Hyperkeratosis: The skin was prepped with isopropyl alcohol. Using a 15-blade scalpel, the hyperkeratotic skin lesions were sharply debrided down to healthy appearing skin. Emollient: Recommend that the patient use an emollient such as cers-mdl-gjdkywt Eucerin cream, Vanicream, or other lotion to the affected area. 11/12/2023 Pain in right foot (ICD-10 - M79.671) 11/12/2023 Left foot pain (ICD-10 - M79.672) 06/09/2024 Tinea pedis (ICD-10 - B35.3) Tinea Pedis: Tinea pedis (athlete's foot) is a dermatologic fungal infection that typically affects the epidermis and is the most common dermatophyte infection. Tinea pedis is transmitted via direct skin contact, contaminated floors, towels and clothing/shoes and thrives in warm, moist environments. Approximately 26.5 million people are affected annually. Nearly half of these people will suffer from multiple episodes for years. Interdigital tinea pedis presents as erythematous, pruritic, scales or erosions between toes. Nikolai-type tinea pedis affects the soles and medial and lateral sides of the feet and often is itchy, hyperkeratotic and flaking. Inflammatory tinea pedis is characterized by pruritic erythematous, painful vesicles or bullae most commonly on the medial foot. Treatment varies from OTC preparations to a large variety of topical and oral medications. Patient education and proper foot hygiene are important components to the successful treatment of this infection. 06/09/2024 Pain in right foot (ICD-10 - M79.671) Plan Of Treatment No Information Insurance Providers Payer Name Payer Address Payer Phone Subscriber Number Group Number Insured Name Patient Relationship to Insured Coverage Start Date Coverage End Date [employer] [address] [place] [address] [id number] SHERRELL MADDOX Self - patient is the insured Medical (General) History Medical History History ICD Code acid reflux Arthritis Bladder infections rheumatoid arthritis Back Trouble
--- OUTSIDE RECORDS SUMMARY | 2024-11-10 10:25 | XMS_ITS | Encounter Summary ---
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
--- OUTSIDE RECORDS SUMMARY | 2024-11-10 10:25 | XMS_ITS | Encounter Summary ---
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
--- OUTSIDE RECORDS SUMMARY | 2024-11-10 10:25 | XMS_ITS | Continuity of Care Document ---
Author Organization [facility] Address [address] [facility] [address] [place] [address] Insurance Providers Payer Plan Claims Address Claims Phone Policy Number Group Number Relation Employer Guarantor Name Guarantor Guarantor Address Guarantor Phone [employer] [address] [address] [address] [id number] Self Marilyn Bueno [address] [place] [id number] [employer] ADV [address], [place] [address] tel:[phone] Self Marilyn Bueno [id number] [place] [id number] [facility] MANAG ED MEDIC ARE ADV [address] [address], [place] [address] [id number] Self Marilyn Bueno [address] [place] [id number] Problems Condition ICD9 code ICD10 code SNOMED code Start Date End Date S tatus Trochanteric bursitis, left hip M70.62 Results No Results Allergies, adverse reactions, alerts No known allergies and adverse reactions Medications No administered medications reported Vital Signs No vital signs reported Social History No smoking Hx information available
--- OUTSIDE RECORDS SUMMARY | 2024-11-10 10:25 | XMS_ITS | Encounter Summary ---
Author Organization [facility] Address [address] [facility] [place] [address] Care Team Providers Care Assembler Show Motor Name Role Phone Unavailable Primary Care Provider Unavailabl e Encounter Details Date Type Department Care Team (Late st Contact Info) Description 11/20/2019 Lab Requisition [facility] DermPath Lab [address] [facility], [place] [address] Angelica Hall MD [address] [facility] 3 [place] [address] Social History Tobacco Use Types Packs/Day Years Used Date Smoking Tobacco: Never Assessed Comments Unknown Sex and Gender Information Value Date Recorded Sex Assigned at Not on file 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 Gender Identity Not on file Sexual Orientation Not on file documented as of this encounter Plan of Treatment Not on file documented as of this encounter Procedures Procedure Name Priority Date/Time Associated Diagnosis Comments IMMUNOFLUORESCENT STUDY DERM Routine 11/19/2019 12:00 AM CDT documented in this encounter Results * IMMUNOFLUORESCENT STUDY DERM (11/19/2019 12:00 AM CDT) Case Report Dermatopathology Report Case: [id number] Authorizing Provider: Angelica Hall MD Collected: 11/19/2019 12:00 AM Ordering Location: [facility] DermPath Lab Received: 11/20/2019 10:04 AM Pathologist: Tracey Cash MD Specimen: Skin, left hip 0 5:11 PM CDT DERMATOPATHOLOGY LABORATORY Final Diagnosis Specimen A. 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 [place] scaly plaques at arms, chest, ad upper neck/back. Hx of RA reticulated plaques. 0 5:11 PM CDT DERMATOPATHOLOGY LABORATORY Gross Description Specimen A: Received is one Sean's media filled container labeled with the patient's name and designated left hip. The specimen consists of a punch measuring 8l6t7hr. The specimen is submitted in whole for [...] characteristic determined by the Dermatopathology Laboratory at [facility], directed by Dr. Lizeth Hernandes. These tests need not be, and therefore are not, approved by the [place] Food and Drug Administration. The tests are used for clinical purposes. Billing Codes Specimen Charges Stain Charges 30456 77094 02847 34014 96016 [address]109 1 1 1 1 1 1 0 5:11 PM CDT DERMATOPATHOLOGY LABORATORY Embedded Images 0 5:11 PM CDT DERMATOPATHOLOGY LABORATORY Pathology/Cytolog y TISSUE SPECIMEN FROM SKIN / Unknown 11/19/2019 11/20/2019 10:04 AM CDT us Angelica Hall MD LAB - PATHOLOGY/CYTOLOGY ORD ERABLES Final Result DERMATOPATHOLOGY LABORATORY [facility] - Department of Dermatology [facility] Medicine [address] [place] [address], [address] [place] [address], [facility] [phone] documented in this encounter Visit Diagnoses Not on filedocumented in this encounter
--- OUTSIDE RECORDS SUMMARY | 2024-11-10 10:25 | XMS_ITS | Encounter Summary ---
Author Organization [facility] Address [address] [place] [address] Care Team Providers Care Bowling Ball Patcher Name Role Phone Unavailable Primary Care Provider Unavailabl e Encounter Details Date Type Department Care Team (Late st Contact Info) Description 02/05/2023 Lab Requisition [facility] - DermPath Lab [address] [facility], [place] [address] Angelica Hall MD [address] [facility] [address] [place] [address] Social History Tobacco Use Types Packs/Day Years Used Date Smoking Tobacco: Never Assessed Comments Unknown Sex and Gender Information Value Date Recorded Sex Assigned at Not on file 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 Gender Identity Not on file Sexual Orientation Not on file documented as of this encounter Plan of Treatment Not on file documented as of this encounter Procedures Procedure Name Priority Date/Time Associated Diagnosis Comments DERMATOPATHOLOGY Routine 02/05/2023 9:54 AM FLORAL MERCHANDISER documented in this encounter Results * DERMATOPATHOLOGY (02/05/2023 9:54 AM FLORAL MERCHANDISER) Case Report Dermatopathology Report Case: [id number] Authorizing Provider: Angelica Hall MD Collected: 02/05/2023 09:54 AM Ordering Location: [facility] DermPath Lab Received: 02/06/2023 12:49 PM Pathologist: Shalonda Celaya MD Specimen: Skin, right forearm 3 1:08 PM FLORAL MERCHANDISER DERMATOPATHOLOGY LABORATORY Final Diagnosis Specimen A. SKIN, right forearm: BENIGN VERRUCOUS KERATOSIS (L82.1) 3 1:08 PM FLORAL MERCHANDISER DERMATOPATHOLOGY LABORATORY at 1308 FLORAL MERCHANDISER Clinical History R/O SCC SK pink scaly papule 3 1:08 PM [facility] DERMATOPATHOLOGY LABORATORY Gross Description Specimen A: Received is one formalin filled container labeled with the patient's name and designated right forearm. The specimen consists of a shave biopsy measuring 8x6x2 mm. Jar 0. 3 1:08 PM [facility] DERMATOPATHOLOGY LABORATORY Microscopic Description Specimen A. SKIN, right forearm: Sections show hyperkeratosis, papillomatosis, hypergranulosis, and acanthosis. These histological findings can be seen in a verruca vulgaris or a seborrheic keratosis. 3 1:08 PM [facility] DERMATOPATHOLOGY LABORATORY Disclaimer An external and internal positive and negative controls are appropriate for the histochemical, immunohistochemical and immunofluorescence stain(s) in this case (if any), except where stated explicitly. The performance characteristics of the stain(s) cited in this report were developed and its performance characteristic determined by the Dermatopathology Laboratory at [facility], directed by Dr. Lizeth Hernandes. These tests need not be, and therefore are not, approved by the [place] Food and Drug Administration. The tests are used for clinical purposes. Billing Codes Specimen Charges Stain Charges 15065 1 3 1:08 PM [facility] DERMATOPATHOLOGY LABORATORY Embedded Images 3 1:08 PM [facility] DERMATOPATHOLOGY LABORATORY Pathology/Cytolo gy TISSUE SPECIMEN FROM SKIN / Unknown 02/05/2023 9:54 AM FLORAL MERCHANDISER 02/06/2023 12:49 PM FLORAL MERCHANDISER us Angelica Hall MD LAB - PATHOLOGY/CYTOLOGY ORD ERABLES Final Result DERMATOPATHOLOGY LABORATORY [facility] - Department of Dermatology [address], [address]rd [place] [address], [facility] [phone] documented in this encounter Visit Diagnoses Not on filedocumented in this encounter
--- OUTSIDE RECORDS SUMMARY | 2024-11-10 10:25 | XMS_ITS | Encounter Summary ---
Author Organization [facility] Address [address] [place] [address] Care Team Providers Care Staff Editor Name Role Phone Unavailable Primary Care Provider Unavailabl e Encounter Details Date Type Department Care Team (Late st Contact Info) Description 10/11/2017 Lab Requisition [facility] Care DermPath Lab [address] [facility] [place] [place] [id number] Carl Paniagua MD [address] [place] [address] Social History Tobacco Use Types Packs/Day Years Used Date Smoking Tobacco: Never Assessed Comments Unknown Sex and Gender Information Value Date Recorded Sex Assigned at Not on file 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 Gender Identity Not on file Sexual Orientation Not on file documented as of this encounter Plan of Treatment Not on file documented as of this encounter Procedures Procedure Name Priority Date/Time Associated Diagnosis Comments DERMPATH SLIDE CONSULT Routine 10/11/2017 12:00 AM CDT documented in this encounter Results * DERMPATH SLIDE CONSULT (10/11/2017 12:00 AM CDT) Case Report Dermatopathology Report Case: [id number] Authorizing Provider: Carl Paniagua MD Collected: 10/11/2017 12:00 AM Pathologist: Nida Peraza MD Received: 10/11/2017 10:14 AM Specimen: Slide(s), Left upper arm, Left 3rd finger, [id number] 10:05 AM CDT DERMATOPATHOLOGY LABORATORY Final Diagnosis Specimen A. Slide(s), Left upper arm, [id number]: VACUOLAR INTERFACE DERMATITIS (L30.8) (see microscopic description and comment) Specimen A. Slide(s), Left 3rd finger, [id number]: VACUOLAR INTERFACE DERMATITIS (L30.8) SUPERFICIAL AND DEEP PERIVASCULAR LYMPHOHISTIOCYTIC INFILTRATE WITH EXTRAVASATED ERYTHROCYTES (R21) (see microscopic description and comment) 10:05 AM [facility] DERMATOPATHOLOGY LABORATORY at 1005 CDT Clinical History Materials received from: [employer], [employer] [address] [place] [id number] Received at the request of Dr. Carl Paniagua, a consult will be performed on 1 slide(s) and 1 block(s) labeled [id number]. Bx Date: 10/01/2017 R/O Lupus. All slides returned. Received at the request of Dr. Carl Paniagua, a consult will be performed on 1 slide(s) and 1 block(s) labeled [id number]. Bx Date: 10/01/2017 R/O Lupus. All slides returned. Any additional sections, special stains or immunohistochemical stains performed by our laboratory will be kept here on file. 10:05 AM [facility] DERMATOPATHOLOGY LABORATORY Microscopic Description Specimen A. Slide(s), Left upper arm, [id number]: There are scattered dyskeratotic keratinocytes and vacuolar [...] diagnosis. Specimen A. Slide(s), Left 3rd finger, [id number]#[id number]: Sections show acral type skin. There are [...] agrees with the diagnosis. 8 10:05 AM CDT DERMATOPATHOLOGY LABORATORY Disclaimer An external and internal positive and negative controls are appropriate for the histochemical, immunohistochemical and immunofluorescence stain(s) in this case (if any), except where stated explicitly. The performance characteristics of the stain(s) cited in this report were developed and its performance characteristic determined by the Dermatopathology Laboratory at [facility]. These tests need not be, and therefore are not, approved by the [place] Food and Drug Administration. The tests are used for clinical purposes. Billing Codes Specimen Charges Stain Charges 48804 1 61711 80094 96173 82693 1 1 1 1 8 10:05 AM CDT DERMATOPATHOLOGY LABORATORY Embedded Images 8 10:05 AM CDT DERMATOPATHOLOGY LABORATORY Pathology/Cytolog y SLIDE / Unknown 10/11/2017 10/11/2017 10:14 AM CDT us Carl Paniagua MD LAB - PATHOLOGY/CYTOLOGY ORDERAB LES Final Result DERMATOPATHOLOGY LABORATORY [facility] - Department of Dermatology [address] [place] [address], [address] [place] [address], [facility] [phone] documented in this encounter Visit Diagnoses Not on filedocumented in this encounter
--- OUTSIDE RECORDS SUMMARY | 2024-11-10 10:25 | XMS_ITS | Clinical Summary ---
Author Organization [facility] Address [address] [address] Care Team Providers Care Home Health Lpn Name Role Phone Unavailable Primary Care Provider Unavailabl e Source Comments [facility],non-owned Affiliates and Associated Physician Practices is amultiple site organization consisting of ambulatory clinics and hospital sitesin [place], [place], [place] and [place]. This disclosure is being madepursuant to the Care Everywhere program and may not contain all information available regarding this patient. 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
--- OUTSIDE RECORDS SUMMARY | 2024-11-10 10:25 | XMS_ITS | Encounter Summary ---
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
--- OUTSIDE RECORDS SUMMARY | 2024-11-10 10:25 | XMS_ITS | Encounter Summary ---
Author Organization [facility] Address [address] [place] [address] Care Team Providers Care Wrapper Rewinder Name Role Phone Unavailable Primary Care Provider Unavailabl e Encounter Details Date Type Department Care Team (Late st Contact Info) Description 04/06/2020 Lab Requisition [facility] DermPath Lab [address] [facility] [place] [id number] Angelica Hall MD [address] [facility] [address] [place] [address] Social History Tobacco Use Types Packs/Day Years Used Date Smoking Tobacco: Never Assessed Comments Unknown Sex and Gender Information Value Date Recorded Sex Assigned at Not on file Legal Sex Female 5:56 PM GRADUATE ASSISTANT ATHLETIC TRAINER Gender Identity Not on file Sexual Orientation Not on file documented as of this encounter Plan of Treatment Not on file documented as of this encounter Procedures Procedure Name Priority Date/Time Associated Diagnosis Comments DERMATOPATHOLOGY Routine 04/05/2020 12:0 0 AM GRADUATE ASSISTANT ATHLETIC TRAINER documented in this encounter Results * DERMATOPATHOLOGY (04/05/2020 12:00 AM GRADUATE ASSISTANT ATHLETIC TRAINER) Case Report Dermatopathology Report Case: [id number] Authorizing Provider: Angelica Hall MD Collected: 04/05/2020 12:00 AM Ordering Location: [facility] DermPath Lab Received: 04/06/2020 11:35 AM Pathologist: Shalonda Celaya MD Specimen: Skin, left nose bridge 12:45 PM GRADUATE ASSISTANT ATHLETIC TRAINER DERMATOPATHOLOGY LABORATORY Final Diagnosis Specimen A. 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 The specimen consists of a shave biopsy measuring 3x2x1 mm. Jar 0. 12:45 PM [facility] DERMATOPATHOLOGY LABORATORY Microscopic Description Specimen A. SKIN, left nose bridge: This dome-shaped lesion contains dilated blood vessels, coarse collagen bundles, and stellate fibroblasts. Additional deeper sections were obtained and reviewed. 12:45 PM [facility] DERMATOPATHOLOGY LABORATORY Disclaimer An external and internal positive and negative controls are appropriate for the histochemical, immunohistochemical and immunofluorescence stain(s) in this case (if any), except where stated explicitly. The performance characteristics of the stain(s) cited in this report were developed and its performance characteristic determined by the Dermatopathology Laboratory at [facility], directed by Dr. Lzieth Hernandes. These tests need not be, and therefore are not, approved by the [place] Food and Drug Administration. The tests are used for clinical purposes. Billing Codes Specimen Charges Stain Charges 59346 1 12:45 PM [facility] DERMATOPATHOLOGY LABORATORY Embedded Images 12:45 PM [facility] DERMATOPATHOLOGY LABORATORY Pathology/Cytolog y TISSUE SPECIMEN FROM SKIN / Unknown 04/05/2020 04/06/2020 11:35 AM GRADUATE ASSISTANT ATHLETIC TRAINER Angelica Hall MD LAB - PATHOLOGY/CYTOLOGY ORD ERABLES Final Result DERMATOPATHOLOGY LABORATORY [facility] - Department of Dermatology [address] [place] [address], [facility] [phone] documented in this encounter Visit Diagnoses Not on filedocumented in this encounter
--- OUTSIDE RECORDS SUMMARY | 2024-11-10 10:25 | XMS_ITS | Encounter Summary ---
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
== END 2024-11-10 09:31 | disposition home or self-care (01) ==
LOC: ANHFOHIMG 09:31
PROVIDERS: PCP Family Medicine; Visit Provider Obstetrics & Gynecology
DX: Z12.31 Encounter for screening mammogram for malignant neoplasm of breast (principal)
CPT/HCPCS: 77063; 77067